=== PATIENT | male | born 1955 | race Caucasian/White ===

== ENCOUNTER 2016-06-01 17:08 | Emergency (ER) | payer MEDICAID ==
[2016-06-01] MEDS ORDERED: cloNIDine 0.1 MG Tab PO ONE (17:33)
[2016-06-01 18:12] LABS: CHLORIDE,CL 105 mmol/L (98-110); SODIUM,NA 146 mmol/L (136-146)
[2016-06-01] MEDS ORDERED: Potassium Chloride 10% 20 MEQ/15 ML Soln 30 ML UD Cup PO ONE (18:27)
[2016-06-01] MEDS ORDERED: Sodium Chloride 0.9% 3,000 ML IV ONE (18:27)
[2016-06-01] MEDS ORDERED: Potassium Chloride 20 MEQ Tab.ER ONE (19:12)
[2016-06-01] MEDS ORDERED: Dextrose 5%-0.45% NaCl 1,000 ML IV SCH (19:15)
[2016-06-01] MEDS ORDERED: Potassium Chloride 20 MEQ Tab.ER PO ONE (19:15)
--- NOTE | 2016-06-01 19:20 | EDM.PDOC ---
ED HPI GENERAL MEDICAL PROBLEM - General Chief Complaint: Drug or Alcohol Abuse Stated Complaint: ALCOHOL DETOX Time Seen by Provider: 06/01/16 18:30 Source of Information: Reports: Patient History Limitations: Reports: No limitations - History of Present Illness INITIAL COMMENTS - FREE TEXT/NARRATIVE: History of present illness: [61-year-old male brought in by son and friends secondary to acute intoxication. Patient has a 40+ year history of hard alcohol consumption to intoxication. Patient indicates as does 7 friend the patient has tried detox in the past but has alcohol withdrawal seizures.] Review of systems: As per history of present illness and below otherwise all systems reviewed and negative. Past medical history: As per history of present illness and as reviewed below otherwise noncontributory. Surgical history: As per history of present illness and as reviewed below otherwise noncontributory. Social history: No reported history of drug or alcohol abuse. Family history: As per history of present illness and as reviewed below otherwise noncontributory. Physical exam: HEENT: Atraumatic, normocephalic, pupils reactive, negative for conjunctival pallor or scleral icterus, mucous membranes moist, throat clear, neck supple, nontender, trachea midline. Lungs: Clear to auscultation, breath sounds equal bilaterally, chest nontender. Heart: S1S2, regular, negative for clicks, rubs, or JVD. Abdomen: Soft, nondistended, nontender. Negative for masses or hepatosplenomegaly. Negative for costovertebral tenderness. Pelvis: Stable nontender. Genitourinary: Deferred. Rectal: Deferred. Extremities: Atraumatic, negative for cords or calf pain. Neurovascular unremarkable. Neuro: Awake, alert, oriented. Cranial nerves II through XII unremarkable. Cerebellum unremarkable. Motor and sensory unremarkable throughout. Exam nonfocal. Global assessment was benign save as noted in the history of present illness patient is clearly intoxicated on presentation he is verbose and friendly. Patient clearly has some short-term memory issues at this juncture which cannot be delineated between intoxication and/or dementia. Diagnostics: [BC, CMP, toxicology screen] Therapeutics: [40 mEq of potassium, 1 L normal saline, D5 half-normal saline] Impression: [Acute intoxicated] Plan: [Transfer to [facility] detox] Definitive disposition and diagnosis as appropriate pending reevaluation and review of above. Generalized Pain Score (Numeric/FACES): 0 - Related Data Allergies Allergy/AdvReac Type Severity Reaction Status Date / Time No Known Allergies Allergy Verified 06/01/16 17:18 Home Meds: Home Meds . [No Known Home Meds] 03/05/14 [History] Past Medical History - Past Health History Medical/Surgical History: Denies Medical/Surgical History HEENT History: Reports: None Cardiovascular History: Reports: None Respiratory History: Reports: Other (see below) Other Respiratory History: pt reports "I have trouble breathing" Gastrointestinal History: Reports: None Genitourinary History: Reports: None Musculoskeletal History: Reports: None Neurological History: Reports: None Endocrine/Metabolic History: Reports: None Hematologic History: Reports: None Immunologic History: Reports: None Dermatologic History: Reports: None - Past Surgical History Head Surgeries/Procedures: Reports: None HEENT Surgical History: Reports: None Cardiovascular Surgical History: Reports: None Male Surgical History: Reports: None Social & Family History - Family History Family Medical History: Noncontributory - Tobacco Use Smoking Status *Q: Current Every Day Smoker Years of Tobacco use: 40 Packs/Tins Daily: 1 Used Tobacco, but Quit: No Second Hand Smoke Exposure: Yes - Caffeine Use Caffeine Use: Reports: Coffee - Alcohol Use Days Per Week of Alcohol Use: 0 - Recreational Drug Use Recreational Drug Use: No ED ROS GENERAL - Review of Systems Review Of Systems: See Below (The history of present illness) ED EXAM, GENERAL - Physical Exam Exam: See Below (See history of present illness) Course - Vital Signs Last Recorded V/S: Last Vital Signs Temp 36.6 C 06/01/16 17:20 Pulse 97 06/01/16 18:01 Resp 18 06/01/16 17:32 BP 190/134 H 06/01/16 18:01 Pulse Ox 95 06/01/16 18:01 - Orders/Labs/Meds Orders: Active Orders 24 hr Category Date Time Status Dextrose 5%-1/2 Normal Saline @ 125 MLS/HR(1000ml) Med 06/01/16 19:15 Ordered Dextrose 5%-0.45% NaCl [Dextrose 5%-1/2 NS] 1,000 ml IV ASDIRECTED Sodium Chloride 0.9% [Normal Saline] 3,000 ml Med 06/01/16 18:27 Ordered IV STAT Medication Orders Sodium Chloride (Normal Saline) 3,000 mls @ 999 mls/hr IV STAT ONE Stop: 06/01/16 21:27 Last Admin: 06/01/16 18:59 Dose: 999 mls/hr Dextrose/Sodium Chloride (Dextrose 5%-1/2 Ns) 1,000 mls @ 125 mls/hr IV ASDIRECTED [facility] Labs: Laboratory Tests 06/01/16 06/01/16 06/01/16 Range/Units 17:43 17:43 18:00 WBC 6.43 (4.0-11.0) K/uL RBC 4.64 (4.50-5.90) M/uL Hgb 15.9 (13.0-17.0) g/dL Hct 44.3 (38.0-50.0) % MCV 95.5 (80.0-98.0) fL MCH 34.3 H (27.0-32.0) pg MCHC 35.9 (31.0-37.0) g/dL RDW Std Deviation 49.0 (28.0-62.0) fl RDW Coeff of Manolo 14 (11.0-15.0) % Plt Count 108 L (150-400) K/uL MPV 10.30 (7.40-12.00) fL Neut % (Auto) 52.5 (48.0-80.0) % Lymph % (Auto) 32.7 (16.0-40.0) % [place] % (Auto) 11.8 (0.0-15.0) % Eos % (Auto) 2.2 (0.0-7.0) % Baso % (Auto) 0.8 (0.0-1.5) % Neut # (Auto) 3.4 (1.4-5.7) K/uL Lymph # (Auto) 2.1 (0.6-2.4) K/uL [place] # (Auto) 0.8 (0.0-0.8) K/uL Eos # (Auto) 0.1 (0.0-0.7) K/uL Baso # (Auto) 0.1 (0.0-0.1) K/uL Nucleated RBC % 0.0 /100WBC Nucleated RBCs # 0 K/uL Sodium 146 (136-146) mmol/L Potassium 3.1 L (3.5-5.1) mmol/L Chloride 105 (98-110) mmol/L Carbon Dioxide 22 (21-31) mmol/L BUN 7 (6.0-23.0) mg/dL Creatinine 0.8 (0.6-1.5) mg/dL Est Cr Clr Drug Dosing 96.28 mL/min Estimated GFR (MDRD) > 60.0 ml/min Glucose 92 (60-110) mg/dL Calcium 8.6 L (8.8-10.8) mg/dL Total Bilirubin 1.1 (0.1-1.5) mg/dL AST 162 H (5-40) IU/L ALT 53 (8-54) IU/L Alkaline Phosphatase 83 (40-150) Total Protein 7.6 (6.0-8.0) g/dL Albumin 4.1 (3.4-4.8) g/dL Globulin 3.5 (2.0-3.5) g/dL Albumin/Globulin Ratio 1.2 L (1.3-2.8) Urine Opiates Screen NEGATIVE (NEGATIVE) Ur Oxycodone Screen NEGATIVE (NEGATIVE) Urine Methadone Screen NEGATIVE (NEGATIVE) Ur Barbiturates Screen NEGATIVE (NEGATIVE) Ur Phencyclidine Scrn NEGATIVE (NEGATIVE) Ur Amphetamine Screen NEGATIVE (NEGATIVE) U Methamphetamines Scrn NEGATIVE (NEGATIVE) U Benzodiazepines Scrn NEGATIVE (NEGATIVE) U Cocaine Metab Screen NEGATIVE (NEGATIVE) U Marijuana (THC) Screen NEGATIVE (NEGATIVE) Ethyl Alcohol 400.5 mg/dL Meds: Medications Generic Name Dose Route Start Last Admin Trade Name Freq PRN Reason Stop Dose Admin Sodium Chloride 3,000 mls @ 999 mls/hr 06/01/16 18:27 06/01/16 18:59 Normal Saline IV 06/01/16 21:27 999 mls/hr STAT ONE Administration Dextrose/Sodium Chloride 1,000 mls @ 125 mls/hr 06/01/16 19:15 Dextrose 5%-1/2 Ns IV ASDIRECTED ONIEL Discontinued Medications Generic Name Dose Route Start Last Admin Trade Name Freq PRN Reason Stop Dose Admin Clonidine HCl 0.2 mg 06/01/16 17:33 06/01/16 17:59 Catapres PO 06/01/16 17:34 0.2 mg ONETIME ONE Administration Potassium Chloride 40 meq 06/01/16 18:27 Potassium Chloride PO 06/01/16 18:28 ONETIME ONE Potassium Chloride Confirm 06/01/16 19:12 Klor-Con M20 Administered 06/01/16 19:13 Dose 40 meq .ROUTE .STK-MED ONE Potassium Chloride 40 meq 06/01/16 19:15 Klor-Con M20 PO 06/01/16 19:16 ONETIME ONE Departure - Departure Time of Disposition: 19:19 Disposition: DC/Tfer to Acute Hospital 02 Condition: good Clinical Impression: Alcohol abuse Forms: ED Department Discharge - My Orders Last 24 Hours: My Active Orders 06/01/16 18:27 Sodium Chloride 0.9% [Normal Saline] 3,000 ml IV STAT 06/01/16 19:15 Dextrose 5%-1/2 Normal Saline @ 125 MLS/HR(1000ml) Dextrose 5%-0.45% NaCl [ Dextrose 5%-1/2 NS] 1,000 ml IV ASDIRECTED - Assessment/Plan Last 24 Hours: My Active Orders 06/01/16 18:27 Sodium Chloride 0.9% [Normal Saline] 3,000 ml IV STAT 06/01/16 19:15 Dextrose 5%-1/2 Normal Saline @ 125 MLS/HR(1000ml) Dextrose 5%-0.45% NaCl [ Dextrose 5%-1/2 NS] 1,000 ml IV ASDIRECTED
[2016-06-01] MEDS ORDERED: Nicotine 21 MG/24 Hr Patch TRDERM ONE (19:30)
[2016-06-01] MEDS ORDERED: Nicotine 14 MG/24 Hr Patch TRDERM ONE (19:30)
[2016-06-01 20:26] VITALS: BP 148/103
== END 2016-06-01 20:20 ==
LOC: MW.ED 17:08
DX: F10.10 Alcohol abuse, uncomplicated (principal); F17.210 Nicotine dependence, cigarettes, uncomplicated
CPT/HCPCS: 36415; 80053; 80305; 85025; 93005; 96360; 99285; A9270; G0480; J7040; J7042; 99283

== ENCOUNTER 2019-02-15 09:10 | Inpatient (IN) | payer MEDICARE, MEDICAID ==
[2019-02-15] MEDS ORDERED: Sodium Chloride 0.9% 1,000 ML IV ONE (09:59)
[2019-02-15] MEDS ORDERED: Ondansetron 4 MG/2 ML SDV IVPUSH ONE (09:59)
[2019-02-15] MEDS ORDERED: Thiamine 100 MG in Sodium Chloride 0.9% 100 ML IV ONE ×2 (09:59→17:30)
[2019-02-15] MEDS ORDERED: LORazepam 2 MG/ML SDV IVPUSH ONE ×2 (09:59→16:47)
[2019-02-15 11:07] LABS: BLOOD UREA NITROGEN,BUN 8 mg/dL (7.0-18.0); CARBON DIOXIDE,CO2 23.9 mmol/L (21.0-32.0); CHLORIDE,CL 97 mmol/L (98-107); GLUCOSE RANDOM 104 mg/dL (74-106); POTASSIUM,K 2.8 mmol/L (3.5-5.1); SODIUM,NA 135 mmol/L (136-148)
--- NOTE | 2019-02-15 11:11 | EDM.PDOC ---
ED [facility] GENERAL MEDICAL PROBLEM - General Chief Complaint: Gastrointestinal Problem Stated Complaint: NOT ABLE TO KEEP ANYTHING DOWN Time Seen by Provider: 02/15/19 09:45 Source of Information: Reports: Patient, Family History Limitations: Reports: No Limitations - History of Present Illness INITIAL COMMENTS - FREE TEXT/NARRATIVE: Patient 63-year-old male with a history of daily alcohol abuse presenting with chief complaint of abdominal pain, nausea, and lethargy. Duration of symptoms been approximately 1 month in duration but of worsened over the last 2 days. Patient is unable to eat anything and is only been drinking alcohol. Patient reports having fevers over the last 2 days and worsening of his abdominal pain particularly in the lower abdomen. Pain does not radiate. The pain is constant. Pain is crampy in nature. Patient denies diarrhea. Patient reports last alcohol use was this morning when he took 3 shots of hard alcohol. Generally he has been drinking half a gallon of alcohol per day. In addition to that documented in the HPI above, the additional ROS was obtained : Constitutional: Per HPI Eyes: Denies vision changes ENMT: Denies sore throat CV: Denies chest pain Resp: Denies SOB GI: Per HPI : Denies painful urination MSK: Denies recent trauma Skin: Denies new rashes Neuro: Denies new numbness or tingling or weakness Endocrine: Denies unexpected weight loss Heme: Denies bleeding disorders I have reviewed the triage vital signs Const: Appears disheveled and malnourished. Eyes: PERRL, no conjunctival injection HENT: NCAT, Neck supple without meningismus CV: RRR, Warm, well-perfused extremities RESP: CTAB, Unlabored respiratory effort GI: Distended abdomen with tenderness to the lower abdomen. No guarding. MSK: No gross deformities appreciated Skin: Warm, dry. No rashes Neuro: Alert, firearms instructor II-XII grossly intact. Sensation and motor function of extremities grossly intact. Psych: Appropriate mood and affect Assessment and plan Patient is 63-year-old male presenting with lower abdominal pain. Patient's labs are noted. Patient significant for hypokalemia which was repleted in the emergency department. Patient's chest x-ray was within normal limits. Patient CT scan demonstrates abdominal ascites. Patient had a diagnostic tap performed in the emergency department which was significant for spontaneous bacterial peritonitis. Patient given antibiotics in the emergency department. Patient was initially tremulous in the emergency department was given 2 mg of Ativan. At this time, patient does not demonstrate any major symptoms of withdrawal and CIWA score is less than 8. Patient will require admission for SBP and IV antibiotics. In addition, he needs close monitoring for development of alcohol withdrawal. Abdomonal Pain Score (Numeric/FACES): 8 - Related Data Allergies Allergy/AdvReac Type Severity Reaction Status Date / Time No Known Allergies Allergy Verified 06/01/16 17:18 Home Meds: Home Meds Albuterol [Ventolin HFA] 1 puff INH Q2H PRN #1 puff 01/27/18 [Rx] Mirtazapine 45 mg PO ASDIRECTED 02/15/19 [History] amLODIPine [Norvasc] 10 mg PO DAILY 02/15/19 [History] Past Medical History - Past Health History Medical/Surgical History: Denies Medical/Surgical History HEENT History: Reports: None Cardiovascular History: Reports: Hypertension Respiratory History: Reports: Other (See Below) Other Respiratory History: 50 years smoker Gastrointestinal History: Reports: None Genitourinary History: Reports: None Musculoskeletal History: Reports: None Neurological History: Reports: None Endocrine/Metabolic History: Reports: None Hematologic History: Reports: None Immunologic History: Reports: None Dermatologic History: Reports: None - Infectious Disease History Infectious Disease History: Reports: Chicken Pox, Measles, Mumps - Past Surgical History Head Surgeries/Procedures: Reports: None HEENT Surgical History: Reports: None Cardiovascular Surgical History: Reports: None Male Surgical History: Reports: None Social & Family History - Family History Family Medical History: Noncontributory - Tobacco Use Smoking Status *Q: Current Every Day Smoker Years of Tobacco use: 50 Packs/Tins Daily: 1 - Caffeine Use Caffeine Use: Reports: Coffee - Recreational Drug Use Recreational Drug Use: No ED ROS GENERAL - Review of Systems Review Of Systems: See Below ED EXAM, GI/ABD - Physical Exam Exam: See Below ED ABDOMINAL/GI PROCEDURES - Additional/Other Procedure(s) Procedure(s) (Free Text): Procedure Note Procedure: Paracentesis Physician(s): Dr. Vinson Indication: diagnostic Anesthesia: 1% Lidocaine Ultrasound guidance was used to locate and louise an ascitic pocket A time-out was completed, verifying correct patient, procedure, site, positioning, and implant(s) or special equipment if applicable. Patient was positioned, prepped, and draped in the usual sterile fashion. 1% Lidocaine was used to anesthetize the area. A standard paracentesis kit needle was introduced into the peritoneal space and 10 ml clear yellow fluid was removed and sent for cell counts, gram stain, bacterial culture, and albumin levels. Complications: None Blood loss: Minimal Dr. Vinson was present during the entire procedure. Course - Vital Signs Last Recorded V/S: Last Vital Signs Temp 36.1 C 02/15/19 09:39 Pulse 99 02/15/19 15:15 Resp 20 02/15/19 15:15 BP 121/82 02/15/19 15:15 Pulse Ox 90 L 02/15/19 15:15 - Orders/Labs/Meds Orders: Active Orders 24 hr Category Date Time Status Admission Status [Patient Status] [ADT] Stat ADT 02/15/19 15:36 Active EKG 12 Lead [EKG Documentation Completion] [RC] STAT Care 02/15/19 11:08 Active CULTURE BODY FLUID + SMEAR [RM] Stat Lab 02/15/19 14:28 Received Dextrose 5%-0.9% NaCl with KCl [D5 NS with 20 mEq KCl] Med 02/15/19 12:30 Active 1,000 ml IV ASDIRECTED cefTRIAXone [Rocephin in Dextrose,Iso-Osm 1 GM/50 ML] 1 Med 02/15/19 15:25 Active gm Premix Bag 1 bag IV ONETIME Medication Orders Potassium Chloride/Dextrose/Sod Cl (D5 Ns With 20 Meq Kcl) 1,000 mls @ 125 mls/ hr IV ASDIRECTED ONIEL Last Admin: 02/15/19 12:36 Dose: 125 mls/hr Ceftriaxone Sodium/Dextrose 1 (gm/ Premix) 50 mls @ 100 mls/hr IV ONETIME ONE Stop: 02/15/19 15:54 Last Admin: 02/15/19 15:32 Dose: 100 mls/hr Labs: Laboratory Tests 02/15/19 02/15/19 02/15/19 Range/Units 10:09 10:09 10:09 WBC 11.73 H (4.0-11.0) K/uL RBC 5.11 (4.50-5.90) M/uL Hgb 17.7 H (13.0-17.0) g/dL Hct 49.1 (38.0-50.0) % MCV 96.1 (80.0-98.0) fL MCH 34.6 H (27.0-32.0) pg MCHC 36.0 (31.0-37.0) g/dL RDW Std Deviation 56.0 (28.0-62.0) fl RDW Coeff of Manolo 16 H (11.0-15.0) % Plt Count 188 (150-400) K/uL MPV 10.50 (7.40-12.00) fL Neutrophils % (Manual) 73 (48.0-80.0) % Lymphocytes % (Manual) 19 (16.0-40.0) % Monocytes % (Manual) 6 (0.0-15.0) % Eosinophils % (Manual) 2 (0.0-7.0) % Nucleated RBC % 0.0 /100WBC Absolute Seg Neuts 8.6 H (1.4-5.7) Lymphocytes # (Manual) 2.2 (0.6-2.4) Monocytes # (Manual) 0.7 (0.0-0.8) Eosinophils # (Manual) 0.2 (0.0-0.7) INR 1.29 VBG pH 7.51 H (7.31-7.41) VBG pCO2 31 L (35-45) mmHG VBG pO2 51 H (30-40) mmHG VBG HCO3 24 (22-30) mEq/L VBG Total CO2 20 L (41-51) mmol/L VBG Base Excess 2.2 (-3.0-3.0) Sodium (136-148) mmol/L Potassium (3.5-5.1) mmol/L Chloride (98-107) mmol/L Carbon Dioxide (21.0-32.0) mmol/L BUN (7.0-18.0) mg/dL Creatinine (0.8-1.3) mg/dL Est Cr Clr Drug Dosing mL/min Estimated GFR (MDRD) ml/min Glucose (74-106) mg/dL Calcium (8.5-10.1) mg/dL Total Bilirubin (0.2-1.0) mg/dL AST (15-37) IU/L ALT (14-63) IU/L Alkaline Phosphatase (46-116) U/L Total Protein (6.4-8.2) g/dL Albumin (3.4-5.0) g/dL Globulin (2.6-4.0) g/dL Albumin/Globulin Ratio (0.9-1.6) Fluid Type Fluid Color Fluid Appearance Fluid pH Fluid WBC K/uL Fluid RBC M/uL Fluid Mononuclear Cell % Fl Polymorphonucl Cell % Ethyl Alcohol mg/dL 02/15/19 02/15/19 02/15/19 Range/Units 10:09 14:28 14:28 WBC (4.0-11.0) K/uL RBC (4.50-5.90) M/uL Hgb (13.0-17.0) g/dL Hct (38.0-50.0) % MCV (80.0-98.0) fL MCH (27.0-32.0) pg MCHC (31.0-37.0) g/dL RDW Std Deviation (28.0-62.0) fl RDW Coeff of Manolo (11.0-15.0) % Plt Count (150-400) K/uL MPV (7.40-12.00) fL Neutrophils % (Manual) (48.0-80.0) % Lymphocytes % (Manual) (16.0-40.0) % Monocytes % (Manual) (0.0-15.0) % Eosinophils % (Manual) (0.0-7.0) % Nucleated RBC % /100WBC Absolute Seg Neuts (1.4-5.7) Lymphocytes # (Manual) (0.6-2.4) Monocytes # (Manual) (0.0-0.8) Eosinophils # (Manual) (0.0-0.7) INR VBG pH (7.31-7.41) VBG pCO2 (35-45) mmHG VBG pO2 (30-40) mmHG VBG HCO3 (22-30) mEq/L VBG Total CO2 (41-51) mmol/L VBG Base Excess (-3.0-3.0) Sodium 135 L (136-148) mmol/L Potassium 2.8 L (3.5-5.1) mmol/L Chloride 97 L (98-107) mmol/L Carbon Dioxide 23.9 (21.0-32.0) mmol/L BUN 8 (7.0-18.0) mg/dL Creatinine 1.0 (0.8-1.3) mg/dL Est Cr Clr Drug Dosing 77.06 mL/min Estimated GFR (MDRD) > 60.0 ml/min Glucose 104 (74-106) mg/dL Calcium 8.7 (8.5-10.1) mg/dL Total Bilirubin 2.1 H (0.2-1.0) mg/dL AST 61 H (15-37) IU/L ALT 32 (14-63) IU/L Alkaline Phosphatase 144 H (46-116) U/L Total Protein 9.3 H (6.4-8.2) g/dL Albumin 2.8 L (3.4-5.0) g/dL Globulin 6.5 H (2.6-4.0) g/dL Albumin/Globulin Ratio 0.4 L (0.9-1.6) Fluid Type PER PER Fluid Color YELLOW Fluid Appearance CLEAR Fluid pH 7.0 Fluid WBC 0.25 K/uL Fluid RBC 0.00 M/uL Fluid Mononuclear Cell 85.7 % Fl Polymorphonucl Cell 14.3 % Ethyl Alcohol 4 mg/dL Meds: Medications Generic Name Dose Route Start Last Admin Trade Name Freq PRN Reason Stop Dose Admin Potassium Chloride/Dextrose/Sod Cl 1,000 mls @ 125 mls/hr 02/15/19 12:30 07/30 12:36 D5 Ns With 20 Meq Kcl IV 125 mls/hr ASDIRECTED ONIEL Administration Ceftriaxone Sodium/Dextrose 1 50 mls @ 100 mls/hr 02/15/19 15:25 02/15/19 15: 32 gm/ Premix IV 02/15/19 15:54 100 mls/hr ONETIME ONE Administration Discontinued Medications Generic Name Dose Route Start Last Admin Trade Name Freq PRN Reason Stop Dose Admin Sodium Chloride 1,000 mls @ 999 mls/hr 02/15/19 09:59 02/15/19 10:15 Normal Saline IV 02/15/19 10:59 999 mls/hr .BOLUS ONE Administration Thiamine HCl 100 mg/ Sodium 101 mls @ 202 mls/hr 02/15/19 09:59 02/15/19 10: 25 Chloride IV 02/15/19 10:00 202 mls/hr ONETIME ONE Administration Iopamidol 100 ml 02/15/19 11:38 02/15/19 12:11 Isovue Multipack-370 (76%) IVPUSH 02/15/19 11:39 100 ml ONETIME STA Administration Lidocaine HCl 5 ml 02/15/19 13:29 02/15/19 13:38 Xylocaine-Mpf 1% INJECT 02/15/19 13:30 5 ml ONETIME ONE Administration Lorazepam 2 mg 02/15/19 09:59 02/15/19 10:15 Ativan IVPUSH 02/15/19 10:00 2 mg ONETIME ONE Administration Nicotine 21 mg 02/15/19 15:08 02/15/19 15:12 Habitrol TRDERM 02/15/19 15:09 21 mg ONETIME ONE Administration Ondansetron HCl 4 mg 02/15/19 09:59 02/15/19 10:15 Zofran IVPUSH 02/15/19 10:00 4 mg ONETIME ONE Administration Potassium Chloride 40 meq 02/15/19 11:42 02/15/19 12:35 Potassium Chloride PO 02/15/19 11:43 40 meq ONETIME ONE Administration Departure - Departure Time of Disposition: 15:51 Disposition: Admitted As Inpatient 65 Clinical Impression: Spontaneous bacterial peritonitis - Discharge Information Referrals: Wesley Arroyo MD [Primary Care Provider] - Forms: ED Department Discharge Sepsis Event Note - Evaluation Sepsis Screening Result: No Definite Risk - Focused Exam Vital Signs: Vital Signs Temp Pulse Resp BP Pulse Ox 02/15/19 15:15 99 20 121/82 90 L 02/15/19 14:15 91 20 102/70 90 L 02/15/19 09:39 36.1 C 101 H 30 H 136/81 93 L Date Exam was Performed: 02/15/19 Time Exam was Performed: 15:51 - My Orders Last 24 Hours: My Active Orders 02/15/19 11:08 EKG 12 Lead [EKG Documentation Completion] [RC] STAT 02/15/19 12:30 Dextrose 5%-0.9% NaCl with KCl [D5 NS with 20 mEq KCl] 1,000 ml IV ASDIRECTED 02/15/19 14:28 CULTURE BODY FLUID + SMEAR [RM] Stat 02/15/19 15:25 cefTRIAXone [Rocephin in Dextrose,Iso-Osm 1 GM/50 ML] 1 gm Premix Bag 1 bag IV ONETIME 02/15/19 15:36 Admission Status [Patient Status] [ADT] Stat - Assessment/Plan Last 24 Hours: My Active Orders 02/15/19 11:08 EKG 12 Lead [EKG Documentation Completion] [RC] STAT 02/15/19 12:30 Dextrose 5%-0.9% NaCl with KCl [D5 NS with 20 mEq KCl] 1,000 ml IV ASDIRECTED 02/15/19 14:28 CULTURE BODY FLUID + SMEAR [RM] Stat 02/15/19 15:25 cefTRIAXone [Rocephin in Dextrose,Iso-Osm 1 GM/50 ML] 1 gm Premix Bag 1 bag IV ONETIME 02/15/19 15:36 Admission Status [Patient Status] [ADT] Stat
[2019-02-15] MEDS ORDERED: Iopamidol 755 MG/ML 500 ML Multipack Bottle IVPUSH STA (11:38)
[2019-02-15] MEDS ORDERED: Potassium Chloride 10% 20 MEQ/15 ML Soln 30 ML UD Cup PO ONE (11:42)
[2019-02-15] MEDS ORDERED: Potassium Chloride 20 MEQ Tab.ER PO ONE (11:42)
--- NOTE | 2019-02-15 12:24 | CT ---
CT abdomen and pelvis Technique: Multiple axial sections were obtained from above the dome of the diaphragm inferiorly through the pubic symphysis. Intravenous contrast was utilized. No oral contrast has been given. Comparison: Previous CT abdomen and pelvis exam of 01/27/18. Findings: Slight atelectasis noted within the right lung base. Liver is diffusely abnormal having the appearance of early cirrhotic change. Small to moderate amount of ascites is seen within the abdomen and pelvis. Spleen appears normal in size at 11.0 cm in length. Gallbladder contains no calcified gallstones. Adrenal glands show no nodule. Kidneys show no hydronephrosis or mass. Left mid kidney shows a nonobstructing stone measuring about 6 mm. Aorta shows atherosclerotic calcification without aneurysm. No retroperitoneal adenopathy is seen. No mesenteric abnormalities are seen. Numerous diverticuli are seen within the sigmoid and descending colon. No inflammatory change of diverticulitis is seen. Diverticuli are also noted within portions of the right colon. Appendix is not definitely visualized. Bone window settings were reviewed which showed no acute osseous finding. Calcified granuloma is noted within the inferior right hilar region as well as several small calcifications within the spleen compatible with granuloma. Impression: 1. Abnormal appearing liver which showed severe fatty infiltration on prior exam. Current study likely represents early cirrhotic change. 2. Mild to moderate amount of ascites within the abdomen and pelvis. 3. Other findings believed to be incidental and not acute as described above. Diagnostic code #5 This report was dictated in [place] Standard Time
[2019-02-15] MEDS: Dextrose 5%-0.9% NaCl with KCl 1,000 ML IV SCH (12:36)
[2019-02-15] MEDS ORDERED: Nicotine 21 MG/24 Hr Patch TRDERM ONE (15:08)
--- NOTE | 2019-02-15 15:23 | CR ---
Chest: Portable view of the chest was obtained. Comparison: Prior chest x-ray of 01/27/18. [place] density is noted within the inferior right hilar region which is felt compatible with large calcified lymph node. Heart size and mediastinum are otherwise normal. No acute parenchymal changes appreciated. Bony structures are grossly intact. Impression: 1. Findings which is felt to be incidental as noted above. 2. Nothing acute is seen on portable chest x-ray. Diagnostic code #2 This report was dictated in [place] Standard Time
[2019-02-15] MEDS ORDERED: cefTRIAXone 1 GM in Premix Bag 1 BAG IV ONE ×2 (15:25→17:00)
[2019-02-15] MEDS ORDERED: Sodium Chloride 0.9% 500 ML IV ONE (16:48)
[2019-02-15] MEDS ORDERED: cefTRIAXone 1 GM Vial IVPUSH ONE (16:50)
--- NOTE | 2019-02-15 16:57 | PCM.HP.2 ---
<Francia Quinones - Last Filed: 02/18/19 13:20> H&P History of Present Illness - General Date of Service: 02/16/19 Admit Problem/Dx: Admission Diagnosis/Problem Admission Diagnosis/Problem Spontaneous bacterial peritonitis Source of Information: Patient History Limitations: Reports: No Limitations - History of Present Illness Initial Comments - Free Text/Narative: 63-year-old male with a significant past medical history of hypertension presenting today after drinking half a bottle of alcohol daily for the past 2 to 3 months, abdominal pain with swelling. States abdominal pain and swelling has gotten progressively worse over the past 2 weeks however he knows that if he "waited any longer he would ". Patient otherwise denies any fevers, chills, body aches, chest pain, shortness of breath, lower extremity swelling. Denies any dysuria urinary urgency or frequency. Denies any rashes. States he smokes daily; ETOH abuse; denies use of illicit drugs Abdomonal Pain Score (Numeric/FACES): 8 - Related Data Allergies/Adverse Reactions: Allergies Allergy/AdvReac Type Severity Reaction Status Date / Time No Known Allergies Allergy Verified 02/15/19 16:29 Home Medications: Home Meds Albuterol [Ventolin HFA] 1 puff INH Q2H PRN #1 puff 01/27/18 [Rx] Mirtazapine 45 mg PO BEDTIME 02/15/19 [History] amLODIPine [Norvasc] 10 mg PO DAILY 02/15/19 [History] Albuterol/Ipratropium [DuoNeb 3.0-0.5 MG/3 ML] 3 ml NEB Q4HRRT neb 02/18/19 [Rx ] Fluticasone/Salmeterol [Advair 100-50] 0 puff INH BID diskus 02/18/19 [Rx] Folic Acid 1 mg PO DAILY tablet 02/18/19 [Rx] Lactulose [Chronulac] 10 gm PO DAILY cup 02/18/19 [Rx] Multivitamins [Tab-A-Darien] 1 tab PO DAILY tablet 02/18/19 [Rx] Ondansetron [Zofran ODT] 4 mg PO Q6H PRN tab.dis 02/18/19 [Rx] Simethicone 80 mg PO Q4H PRN tab.chew 02/18/19 [Rx] Spironolactone [Aldactone] 50 mg PO DAILY tablet 02/18/19 [Rx] Thiamine [Vitamin B-1] 100 mg IV Q24H mdv 02/18/19 [Rx] cefTRIAXone [Rocephin in Dextrose,Iso-Osm 2 GM/50 ML] 2 gm IV Q24H bag [Rx] predniSONE 40 mg PO WITHBREAKFAST tablet 02/18/19 [Rx] Past Medical History - Past Health History Medical/Surgical History: Denies Medical/Surgical History HEENT History: Reports: None Cardiovascular History: Reports: Hypertension Respiratory History: Reports: Other (See Below) Other Respiratory History: 50 years smoker Gastrointestinal History: Reports: None Genitourinary History: Reports: None Musculoskeletal History: Reports: None Neurological History: Reports: None Endocrine/Metabolic History: Reports: None Hematologic History: Reports: None Immunologic History: Reports: None Dermatologic History: Reports: None - Infectious Disease History Infectious Disease History: Reports: Chicken Pox, Measles, Mumps - Past Surgical History Head Surgeries/Procedures: Reports: None HEENT Surgical History: Reports: None Cardiovascular Surgical History: Reports: None Male Surgical History: Reports: None Social & Family History - Family History Family Medical History: Noncontributory - Tobacco Use Smoking Status *Q: Current Every Day Smoker Years of Tobacco use: 50 Packs/Tins Daily: 1 - Caffeine Use Caffeine Use: Reports: Coffee - Recreational Drug Use Recreational Drug Use: No H&P Review of Systems - Review of Systems: Review Of Systems: See Below General: Denies: Fever, Chills, Malaise, Fatigue HEENT: Reports: No Symptoms Pulmonary: Reports: No Symptoms, Cough. Denies: Shortness of Breath, Wheezing, Pleuritic Chest Pain, Sputum Cardiovascular: Reports: No Symptoms. Denies: Chest Pain, Palpitations, Dyspnea on Exertion Gastrointestinal: Reports: Abdominal Pain, Constipation, Decreased Appetite, Distension. Denies: Diarrhea, Nausea Genitourinary: Reports: No Symptoms Musculoskeletal: Reports: No Symptoms Skin: Reports: No Symptoms Psychiatric: Denies: No Symptoms, Confusion, Depression Neurological: Denies: Confusion Exam - Exam Exam: See Below - Vital Signs Vital Signs: Last Vital Signs Temp 97 F 02/15/19 09:39 Pulse 94 02/15/19 16:15 Resp 18 02/15/19 16:15 BP 113/77 02/15/19 16:15 Pulse Ox 93 L 02/15/19 16:15 Weight: 85 kg - Exam Quality Assessment: Supplemental Oxygen General: Alert, Oriented, Cooperative HEENT: EOMI, Mucosa Moist & [place] Neck: Supple, Trachea Midline Lungs: Other (LL lung field expiuratory wheeze ) Cardiovascular: Regular Rate, Regular Rhythm GI/Abdominal Exam: Other (Tender and distended; no fluid wave ; no suprapubic or flank tenderness) Back Exam: Full Range of Motion Skin: Warm, Dry Neurological: Cranial Nerves Intact Neuro Extensive - Mental Status: Alert, Oriented x3 Psychiatric: Alert, Normal Affect, Normal Mood - Patient Data Lab Results Last 24 hrs: Laboratory Results - last 24 hr 02/15/19 02/15/19 02/15/19 Range/Units 10:09 10:09 10:09 WBC 11.73 H (4.0-11.0) K/uL RBC 5.11 (4.50-5.90) M/uL Hgb 17.7 H (13.0-17.0) g/dL Hct 49.1 (38.0-50.0) % MCV 96.1 (80.0-98.0) fL MCH 34.6 H (27.0-32.0) pg MCHC 36.0 (31.0-37.0) g/dL RDW Std Deviation 56.0 (28.0-62.0) fl RDW Coeff of Manolo 16 H (11.0-15.0) % Plt Count 188 (150-400) K/uL MPV 10.50 (7.40-12.00) fL Neutrophils % (Manual) 73 (48.0-80.0) % Lymphocytes % (Manual) 19 (16.0-40.0) % Monocytes % (Manual) 6 (0.0-15.0) % Eosinophils % (Manual) 2 (0.0-7.0) % Nucleated RBC % 0.0 /100WBC Absolute Seg Neuts 8.6 H (1.4-5.7) Lymphocytes # (Manual) 2.2 (0.6-2.4) Monocytes # (Manual) 0.7 (0.0-0.8) Eosinophils # (Manual) 0.2 (0.0-0.7) INR 1.29 VBG pH 7.51 H (7.31-7.41) VBG pCO2 31 L (35-45) mmHG VBG pO2 51 H (30-40) mmHG VBG HCO3 24 (22-30) mEq/L VBG Total CO2 20 L (41-51) mmol/L VBG Base Excess 2.2 (-3.0-3.0) Sodium (136-148) mmol/L Potassium (3.5-5.1) mmol/L Chloride (98-107) mmol/L Carbon Dioxide (21.0-32.0) mmol/L BUN (7.0-18.0) mg/dL Creatinine (0.8-1.3) mg/dL Est Cr Clr Drug Dosing mL/min Estimated GFR (MDRD) ml/min Glucose (74-106) mg/dL Calcium (8.5-10.1) mg/dL Total Bilirubin (0.2-1.0) mg/dL AST (15-37) IU/L ALT (14-63) IU/L Alkaline Phosphatase (46-116) U/L Total Protein (6.4-8.2) g/dL Albumin (3.4-5.0) g/dL Globulin (2.6-4.0) g/dL Albumin/Globulin Ratio (0.9-1.6) Fluid Type Fluid Color Fluid Appearance Fluid pH Fluid WBC K/uL Fluid RBC M/uL Fluid Mononuclear Cell % Fl Polymorphonucl Cell % Ethyl Alcohol mg/dL 02/15/19 02/15/19 02/15/19 Range/Units 10:09 14:28 14:28 WBC (4.0-11.0) K/uL RBC (4.50-5.90) M/uL Hgb (13.0-17.0) g/dL Hct (38.0-50.0) % MCV (80.0-98.0) fL MCH (27.0-32.0) pg MCHC (31.0-37.0) g/dL RDW Std Deviation (28.0-62.0) fl RDW Coeff of Manolo (11.0-15.0) % Plt Count (150-400) K/uL MPV (7.40-12.00) fL Neutrophils % (Manual) (48.0-80.0) % Lymphocytes % (Manual) (16.0-40.0) % Monocytes % (Manual) (0.0-15.0) % Eosinophils % (Manual) (0.0-7.0) % Nucleated RBC % /100WBC Absolute Seg Neuts (1.4-5.7) Lymphocytes # (Manual) (0.6-2.4) Monocytes # (Manual) (0.0-0.8) Eosinophils # (Manual) (0.0-0.7) INR VBG pH (7.31-7.41) VBG pCO2 (35-45) mmHG VBG pO2 (30-40) mmHG VBG HCO3 (22-30) mEq/L VBG Total CO2 (41-51) mmol/L VBG Base Excess (-3.0-3.0) Sodium 135 L (136-148) mmol/L Potassium 2.8 L (3.5-5.1) mmol/L Chloride 97 L (98-107) mmol/L Carbon Dioxide 23.9 (21.0-32.0) mmol/L BUN 8 (7.0-18.0) mg/dL Creatinine 1.0 (0.8-1.3) mg/dL Est Cr Clr Drug Dosing 77.06 mL/min Estimated GFR (MDRD) > 60.0 ml/min Glucose 104 (74-106) mg/dL Calcium 8.7 (8.5-10.1) mg/dL Total Bilirubin 2.1 H (0.2-1.0) mg/dL AST 61 H (15-37) IU/L ALT 32 (14-63) IU/L Alkaline Phosphatase 144 H (46-116) U/L Total Protein 9.3 H (6.4-8.2) g/dL Albumin 2.8 L (3.4-5.0) g/dL Globulin 6.5 H (2.6-4.0) g/dL Albumin/Globulin Ratio 0.4 L (0.9-1.6) Fluid Type PER PER Fluid Color YELLOW Fluid Appearance CLEAR Fluid pH 7.0 Fluid WBC 0.25 K/uL Fluid RBC 0.00 M/uL Fluid Mononuclear Cell 85.7 % Fl Polymorphonucl Cell 14.3 % Ethyl Alcohol 4 mg/dL Result Diagrams: 02/18/19 04:53 02/18/19 04:53 Sepsis Event Note - Evaluation Sepsis Screening Result: No Definite Risk - Focused Exam Vital Signs: Vital Signs Temp Pulse Resp BP Pulse Ox 02/15/19 16:15 94 18 113/77 93 L 02/15/19 15:15 99 20 121/82 90 L 02/15/19 14:15 91 20 102/70 90 L 02/15/19 09:39 97 F 101 H 30 H 136/81 93 L Date Exam was Performed: 02/18/19 Time Exam was Performed: 13:20 Problem List Initiated/Reviewed/Updated: Yes Orders Last 24hrs: Active Orders 24 hr Category Date Time Status Admission Status [Patient Status] [ADT] Stat ADT 02/15/19 15:36 Active CIWAA Assessment [RC] Q1H Care 02/15/19 16:46 Ordered EKG 12 Lead [EKG Documentation Completion] [RC] STAT Care 02/15/19 11:08 Active RT Aerosol Therapy [RC] ASDIRECTED Care 02/15/19 16:47 Ordered Echo Comp wo Cont [US] Urgent Exams 02/15/19 16:44 Ordered AMMONIA VENOUS [CHEM] Stat Lab 02/15/19 16:46 Ordered CBC WITH AUTO DIFF [HEME] AM Lab 02/16/19 05:11 Ordered COMPREHENSIVE METABOLIC PN,CMP [CHEM] AM Lab 02/16/19 05:11 Ordered CULTURE BLOOD [BC] Stat Lab 02/15/19 16:45 Ordered CULTURE BLOOD [BC] Stat Lab 02/15/19 16:45 Ordered CULTURE BODY FLUID + SMEAR [RM] Stat Lab 02/15/19 14:28 Received UA W/YASSINE RFLX IF INDICATED [URIN] Routine Lab 02/15/19 16:45 Ordered Albuterol/Ipratropium [DuoNeb 3.0-0.5 MG/3 ML] Med 02/15/19 16:47 Active 3 ml NEB Q4HRRT PRN Dextrose 5%-0.9% NaCl with KCl [D5 NS with 20 mEq KCl] Med 02/15/19 12:30 Active 1,000 ml IV ASDIRECTED Heparin Sodium Med 02/15/19 17:00 Active 5,000 units SUBCUT Q8H Lactulose [Chronulac] Med 02/15/19 17:00 Ordered 10 gm PO DAILY Pantoprazole [ProTONIX IV] 40 mg Med 02/15/19 16:45 Active Sodium Chloride 0.9% [Normal Saline] 10 ml IV DAILY Sodium Chloride 0.9% [Normal Saline] 500 ml Med 02/15/19 16:48 Active IV STAT cefTRIAXone [Rocephin in Dextrose,Iso-Osm 1 GM/50 ML] 1 Med 02/15/19 17:00 Active gm Premix Bag 1 bag IV ONETIME cefTRIAXone [Rocephin] Med 02/15/19 16:50 Once 1 gm IVPUSH ONETIME ONE Blood Culture x2 Reflex Set [OM.PC] Stat Oth 02/15/19 16:45 Ordered Code Status [Resuscitation Status] Routine Resus Stat 02/15/19 16:51 Ordered Medication Orders Albuterol/Ipratropium (Duoneb 3.0-0.5 Mg/3 Ml) 3 ml NEB Q4HRRT PRN PRN Reason: Shortness of Breath Ceftriaxone Sodium (Rocephin) 1 gm IVPUSH ONETIME ONE Stop: 02/15/19 16:51 Heparin Sodium (Porcine) (Heparin Sodium) 5,000 units SUBCUT Q8H ONIEL Potassium Chloride/Dextrose/Sod Cl (D5 Ns With 20 Meq Kcl) 1,000 mls @ 125 mls/ hr IV ASDIRECTED [facility] Last Admin: 02/15/19 12:36 Dose: 125 mls/hr Pantoprazole Sodium 40 mg/ (Sodium Chloride) 10 mls @ 300 mls/hr IV DAILY ONIEL Sodium Chloride (Normal Saline) 500 mls @ 500 mls/hr IV STAT ONE Stop: 02/15/19 17:47 Ceftriaxone Sodium/Dextrose 1 (gm/ Premix) 50 mls @ 100 mls/hr IV ONETIME ONE Stop: 02/15/19 17:29 Lactulose (Chronulac) 10 gm PO DAILY [facility] Assessment/Plan Comment:: Assessment 1. Abdominal ascites with concern for SBP with suspected cirrhosis 2. Alcohol cirrhosis 3. Transaminitis 4. Hypokalemia 5. Leukocytosis. 6. Past medical history: Hypertension, chronic alcohol abuse, tobacco abuse, Plan Admit to inpatient. Full code. DVT prophylaxis; heparin every 8 subcu. GI prophylaxis; IV PPI 40 daily. Up ad joe. diet: Regular. 1. Ascites with concerns about SBP; cell count consistent with SBP awaiting body cultures: Initiate patient on ceftriaxone 2 g daily x5 days. CT abdomen consistent with moderate ascites. Chest x-ray: Negative for pleural effusions versus infiltrates. Volume down: We will give another 500 cc bolus right now. Awaiting cultures. Concerns for alcoholic cardiomyopathy: Echo ordered. Concerns for infectious process: UA with reflex ordered. Lactulose 10 mg daily ordered Child Lee MELD score 2. Hypokalemia: received 40 in IV 3. Check ammonia 4. ETOH abuse: CIWAA/Ativan protocol 5. Duo-nebs ordered PRN: concern for COPD 6. pt. understood plan. <Anup Mcgowan - Last Filed: 02/22/19 20:35> H&P History of Present Illness - General Admit Problem/Dx: Admission Diagnosis/Problem Admission Diagnosis/Problem Spontaneous bacterial peritonitis Exam - Vital Signs Vital Signs: Last Vital Signs Temp 37.2 C 02/18/19 11:52 Pulse 90 02/18/19 11:52 Resp 18 02/18/19 11:52 BP 110/78 02/18/19 11:52 Pulse Ox 93 L 02/18/19 11:52 - Patient Data Result Diagrams: 02/18/19 04:53 02/18/19 04:53 Assessment/Plan Comment:: I performed a history and physical exam of the patient and discussed management with resident. I have reviewed the residents note and agree with documented findings and plan unless otherwise specified in my note.
[2019-02-15] MEDS ORDERED: Heparin Sodium 5,000 Units/ML Vial IVPUSH SCH (17:00)
[2019-02-15] MEDS ORDERED: LORazepam 2 MG/ML SDV IVPUSH PRN ×3 (17:22→17:30)
[2019-02-15] MEDS ORDERED: Ondansetron 4 MG Tab.DIS PO PRN (17:36)
[2019-02-15] MEDS: Folic Acid 1 MG Tab PO SCH (17:37)
[2019-02-15] MEDS: Lactulose Soln 10 GM/15 ML 15 ML UD Cup PO SCH (17:37)
[2019-02-15] MEDS: Pantoprazole 40 MG in Sodium Chloride 0.9% 10 ML IV SCH (17:38)
[2019-02-15] MEDS: Heparin Sodium 5,000 Units/ML Vial SUBCUT SCH (17:39)
[2019-02-15] MEDS ORDERED: Magnesium Sulfate/Water 2 GM in Premix Bag 1 BAG IV ONE ×2 (18:01→23:00)
[2019-02-16] MEDS: Dextrose 5%-0.9% NaCl with KCl 1,000 ML IV SCH ×3 (00:46→18:37)
[2019-02-16] MEDS: Heparin Sodium 5,000 Units/ML Vial SUBCUT SCH ×3 (00:46→16:22)
[2019-02-16 06:28] LABS: CARBON DIOXIDE,CO2 23.1 mmol/L (21.0-32.0); CHLORIDE,CL 107 mmol/L (98-107); GLUCOSE RANDOM 90 mg/dL (74-106); POTASSIUM,K 3.3 mmol/L (3.5-5.1); SODIUM,NA 140 mmol/L (136-148)
[2019-02-16 06:59] LABS: BLOOD UREA NITROGEN,BUN 6 mg/dL (7.0-18.0)
[2019-02-16] MEDS ORDERED: Potassium Chloride 20 MEQ Tab.ER PO ONE (07:51)
[2019-02-16] MEDS: Folic Acid 1 MG Tab PO SCH (08:29)
[2019-02-16] MEDS: Pantoprazole 40 MG in Sodium Chloride 0.9% 10 ML IV SCH (08:29)
[2019-02-16] MEDS: Lactulose Soln 10 GM/15 ML 15 ML UD Cup PO SCH (08:29)
[2019-02-16] MEDS: Albuterol/Ipratropium 3.0-0.5 MG/3 ML Neb Soln NEB PRN ×2 (09:10→19:54)
--- NOTE | 2019-02-16 09:21 | PCM.PN ---
<Francia Quinones - Last Filed: 02/16/19 12:12> - General Info Date of Service: 02/16/19 Subjective Update: Bedside: states belly is still "tight" but has had 2 watery BM since last night , eating and drinking well; denies any other complaints at this time. - Review of Systems General: Denies: Chills HEENT: Reports: No Symptoms Pulmonary: Reports: Cough. Denies: Shortness of Breath, Sputum Cardiovascular: Reports: No Symptoms Gastrointestinal: Reports: Abdominal Pain, Diarrhea. Denies: Constipation, Nausea, Vomiting Genitourinary: Reports: No Symptoms Musculoskeletal: Reports: No Symptoms Neurological: Reports: No Symptoms. Denies: Headache - Patient Data Vitals - Most Recent: Last Vital Signs Temp 98.2 F 02/16/19 07:53 Pulse 81 02/16/19 07:53 Resp 18 02/16/19 07:53 BP 104/72 02/16/19 07:53 Pulse Ox 92 L 02/16/19 07:53 Weight - Most Recent: 85 kg I&O - Last 24 Hours: Intake & Output 02/15/19 02/16/19 02/16/19 22:59 06:59 14:59 Intake Total 2200 Balance 2200 Lab Results Last 24 Hours: Laboratory Results - last 24 hr 02/15/19 02/15/19 02/15/19 Range/Units 10:09 10:09 10:09 WBC 11.73 H (4.0-11.0) K/uL RBC 5.11 (4.50-5.90) M/uL Hgb 17.7 H (13.0-17.0) g/dL Hct 49.1 (38.0-50.0) % MCV 96.1 (80.0-98.0) fL MCH 34.6 H (27.0-32.0) pg MCHC 36.0 (31.0-37.0) g/dL RDW Std Deviation 56.0 (28.0-62.0) fl RDW Coeff of Manolo 16 H (11.0-15.0) % Plt Count 188 (150-400) K/uL MPV 10.50 (7.40-12.00) fL Neut % (Auto) (48.0-80.0) % Lymph % (Auto) (16.0-40.0) % [place] % (Auto) (0.0-15.0) % Eos % (Auto) (0.0-7.0) % Baso % (Auto) (0.0-1.5) % Neut # (Auto) (1.4-5.7) K/uL Lymph # (Auto) (0.6-2.4) K/uL [place] # (Auto) (0.0-0.8) K/uL Eos # (Auto) (0.0-0.7) K/uL Baso # (Auto) (0.0-0.1) K/uL Neutrophils % (Manual) 73 (48.0-80.0) % Lymphocytes % (Manual) 19 (16.0-40.0) % Monocytes % (Manual) 6 (0.0-15.0) % Eosinophils % (Manual) 2 (0.0-7.0) % Nucleated RBC % 0.0 /100WBC Absolute Seg Neuts 8.6 H (1.4-5.7) Lymphocytes # (Manual) 2.2 (0.6-2.4) Monocytes # (Manual) 0.7 (0.0-0.8) Eosinophils # (Manual) 0.2 (0.0-0.7) Nucleated RBCs # K/uL INR 1.29 VBG pH 7.51 H (7.31-7.41) VBG pCO2 31 L (35-45) mmHG VBG pO2 51 H (30-40) mmHG VBG HCO3 24 (22-30) mEq/L VBG Total CO2 20 L (41-51) mmol/L VBG Base Excess 2.2 (-3.0-3.0) Sodium (136-148) mmol/L Potassium (3.5-5.1) mmol/L Chloride (98-107) mmol/L Carbon Dioxide (21.0-32.0) mmol/L BUN (7.0-18.0) mg/dL Creatinine (0.8-1.3) mg/dL Est Cr Clr Drug Dosing mL/min Estimated GFR (MDRD) ml/min Glucose (74-106) mg/dL Calcium (8.5-10.1) mg/dL Magnesium (1.8-2.4) mg/dL Total Bilirubin (0.2-1.0) mg/dL AST (15-37) IU/L ALT (14-63) IU/L Alkaline Phosphatase (46-116) U/L Ammonia (19-54) ug/dL Total Protein (6.4-8.2) g/dL Albumin (3.4-5.0) g/dL Globulin (2.6-4.0) g/dL Albumin/Globulin Ratio (0.9-1.6) Urine Color Urine Appearance Urine pH (5.0-8.0) Ur Specific [place] (1.001-1.035) Urine Protein (NEGATIVE) mg/dL Urine Glucose (UA) (NEGATIVE) mg/dL Urine Ketones (NEGATIVE) mg/dL Urine Occult Blood (NEGATIVE) Urine Nitrite (NEGATIVE) Urine Bilirubin (NEGATIVE) Urine Ictotest Urine Urobilinogen (<2.0) EU/dL Ur Leukocyte Esterase (NEGATIVE) Urine RBC (0-2/HPF) Urine WBC (0-5/HPF) Ur Epithelial Cells (NONE-FEW) Urine Bacteria (NEGATIVE) Urine Mucus (NONE-MOD) Fluid Type Fluid Color Fluid Appearance Fluid pH Fluid WBC K/uL Fluid RBC M/uL Fluid Mononuclear Cell % Fl Polymorphonucl Cell % Ethyl Alcohol mg/dL 02/15/19 02/15/19 02/15/19 Range/Units 10:09 10:09 14:28 WBC (4.0-11.0) K/uL RBC (4.50-5.90) M/uL Hgb (13.0-17.0) g/dL Hct (38.0-50.0) % MCV (80.0-98.0) fL MCH (27.0-32.0) pg MCHC (31.0-37.0) g/dL RDW Std Deviation (28.0-62.0) fl RDW Coeff of Manolo (11.0-15.0) % Plt Count (150-400) K/uL MPV (7.40-12.00) fL Neut % (Auto) (48.0-80.0) % Lymph % (Auto) (16.0-40.0) % Kem[place] % (Auto) (0.0-15.0) % Eos % (Auto) (0.0-7.0) % Baso % (Auto) (0.0-1.5) % Neut # (Auto) (1.4-5.7) K/uL Lymph # (Auto) (0.6-2.4) K/uL [place] # (Auto) (0.0-0.8) K/uL Eos # (Auto) (0.0-0.7) K/uL Baso # (Auto) (0.0-0.1) K/uL Neutrophils % (Manual) (48.0-80.0) % Lymphocytes % (Manual) (16.0-40.0) % Monocytes % (Manual) (0.0-15.0) % Eosinophils % (Manual) (0.0-7.0) % Nucleated RBC % /100WBC Absolute Seg Neuts (1.4-5.7) Lymphocytes # (Manual) (0.6-2.4) Monocytes # (Manual) (0.0-0.8) Eosinophils # (Manual) (0.0-0.7) Nucleated RBCs # K/uL INR VBG pH (7.31-7.41) VBG pCO2 (35-45) mmHG VBG pO2 (30-40) mmHG VBG HCO3 (22-30) mEq/L VBG Total CO2 (41-51) mmol/L VBG Base Excess (-3.0-3.0) Sodium 135 L (136-148) mmol/L Potassium 2.8 L (3.5-5.1) mmol/L Chloride 97 L (98-107) mmol/L Carbon Dioxide 23.9 (21.0-32.0) mmol/L BUN 8 (7.0-18.0) mg/dL Creatinine 1.0 (0.8-1.3) mg/dL Est Cr Clr Drug Dosing 77.06 mL/min Estimated GFR (MDRD) > 60.0 ml/min Glucose 104 (74-106) mg/dL Calcium 8.7 (8.5-10.1) mg/dL Magnesium 1.6 L (1.8-2.4) mg/dL Total Bilirubin 2.1 H (0.2-1.0) mg/dL AST 61 H (15-37) IU/L ALT 32 (14-63) IU/L Alkaline Phosphatase 144 H (46-116) U/L Ammonia (19-54) ug/dL Total Protein 9.3 H (6.4-8.2) g/dL Albumin 2.8 L (3.4-5.0) g/dL Globulin 6.5 H (2.6-4.0) g/dL Albumin/Globulin Ratio 0.4 L (0.9-1.6) Urine Color Urine Appearance Urine pH (5.0-8.0) Ur Specific [place] (1.001-1.035) Urine Protein (NEGATIVE) mg/dL Urine Glucose (UA) (NEGATIVE) mg/dL Urine Ketones (NEGATIVE) mg/dL Urine Occult Blood (NEGATIVE) Urine Nitrite (NEGATIVE) Urine Bilirubin (NEGATIVE) Urine Ictotest Urine Urobilinogen (<2.0) EU/dL Ur Leukocyte Esterase (NEGATIVE) Urine RBC (0-2/HPF) Urine WBC (0-5/HPF) Ur Epithelial Cells (NONE-FEW) Urine Bacteria (NEGATIVE) Urine Mucus (NONE-MOD) Fluid Type PER Fluid Color YELLOW Fluid Appearance CLEAR Fluid pH Fluid WBC 0.25 K/uL Fluid RBC 0.00 M/uL Fluid Mononuclear Cell 85.7 % Fl Polymorphonucl Cell 14.3 % Ethyl Alcohol 4 mg/dL 02/15/19 02/15/19 02/15/19 Range/Units 14:28 15:00 16:46 WBC (4.0-11.0) K/uL RBC (4.50-5.90) M/uL Hgb (13.0-17.0) g/dL Hct (38.0-50.0) % MCV (80.0-98.0) fL MCH (27.0-32.0) pg MCHC (31.0-37.0) g/dL RDW Std Deviation (28.0-62.0) fl RDW Coeff of Manolo (11.0-15.0) % Plt Count (150-400) K/uL MPV (7.40-12.00) fL Neut % (Auto) (48.0-80.0) % Lymph % (Auto) (16.0-40.0) % Kem[place] % (Auto) (0.0-15.0) % Eos % (Auto) (0.0-7.0) % Baso % (Auto) (0.0-1.5) % Neut # (Auto) (1.4-5.7) K/uL Lymph # (Auto) (0.6-2.4) K/uL Kem[place] # (Auto) (0.0-0.8) K/uL Eos # (Auto) (0.0-0.7) K/uL Baso # (Auto) (0.0-0.1) K/uL Neutrophils % (Manual) (48.0-80.0) % Lymphocytes % (Manual) (16.0-40.0) % Monocytes % (Manual) (0.0-15.0) % Eosinophils % (Manual) (0.0-7.0) % Nucleated RBC % /100WBC Absolute Seg Neuts (1.4-5.7) Lymphocytes # (Manual) (0.6-2.4) Monocytes # (Manual) (0.0-0.8) Eosinophils # (Manual) (0.0-0.7) Nucleated RBCs # K/uL INR VBG pH (7.31-7.41) VBG pCO2 (35-45) mmHG VBG pO2 (30-40) mmHG VBG HCO3 (22-30) mEq/L VBG Total CO2 (41-51) mmol/L VBG Base Excess (-3.0-3.0) Sodium (136-148) mmol/L Potassium (3.5-5.1) mmol/L Chloride (98-107) mmol/L Carbon Dioxide (21.0-32.0) mmol/L BUN (7.0-18.0) mg/dL Creatinine (0.8-1.3) mg/dL Est Cr Clr Drug Dosing mL/min Estimated GFR (MDRD) ml/min Glucose (74-106) mg/dL Calcium (8.5-10.1) mg/dL Magnesium (1.8-2.4) mg/dL Total Bilirubin (0.2-1.0) mg/dL AST (15-37) IU/L ALT (14-63) IU/L Alkaline Phosphatase (46-116) U/L Ammonia 105 H (19-54) ug/dL Total Protein (6.4-8.2) g/dL Albumin (3.4-5.0) g/dL Globulin (2.6-4.0) g/dL Albumin/Globulin Ratio (0.9-1.6) Urine Color YELLOW Urine Appearance CLEAR Urine pH 6.5 (5.0-8.0) Ur Specific [place] 1.010 (1.001-1.035) Urine Protein NEGATIVE (NEGATIVE) mg/dL Urine Glucose (UA) NEGATIVE (NEGATIVE) mg/dL Urine Ketones NEGATIVE (NEGATIVE) mg/dL Urine Occult Blood NEGATIVE (NEGATIVE) Urine Nitrite POSITIVE H (NEGATIVE) Urine Bilirubin MODERATE H (NEGATIVE) Urine Ictotest NEGATIVE Urine Urobilinogen 4.0 H (<2.0) EU/dL Ur Leukocyte Esterase SMALL H (NEGATIVE) Urine RBC 0-3 (0-2/HPF) Urine WBC 1-5 (0-5/HPF) Ur Epithelial Cells RARE (NONE-FEW) Urine Bacteria FEW (NEGATIVE) Urine Mucus LIGHT (NONE-MOD) Fluid Type PER Fluid Color Fluid Appearance Fluid pH 7.0 Fluid WBC K/uL Fluid RBC M/uL Fluid Mononuclear Cell % Fl Polymorphonucl Cell % Ethyl Alcohol mg/dL 02/16/19 02/16/19 Range/Units 05:13 05:13 WBC 8.53 (4.0-11.0) K/uL RBC 4.08 L (4.50-5.90) M/uL Hgb 13.8 (13.0-17.0) g/dL Hct 39.8 (38.0-50.0) % MCV 97.5 (80.0-98.0) fL MCH 33.8 H (27.0-32.0) pg MCHC 34.7 (31.0-37.0) g/dL RDW Std Deviation 57.3 (28.0-62.0) fl RDW Coeff of Manolo 16 H (11.0-15.0) % Plt Count 171 (150-400) K/uL MPV 10.40 (7.40-12.00) fL Neut % (Auto) 62.5 (48.0-80.0) % Lymph % (Auto) 18.9 (16.0-40.0) % Kem[place] % (Auto) 13.7 (0.0-15.0) % Eos % (Auto) 4.3 (0.0-7.0) % Baso % (Auto) 0.6 (0.0-1.5) % Neut # (Auto) 5.3 (1.4-5.7) K/uL Lymph # (Auto) 1.6 (0.6-2.4) K/uL [place] # (Auto) 1.2 H (0.0-0.8) K/uL Eos # (Auto) 0.4 (0.0-0.7) K/uL Baso # (Auto) 0.1 (0.0-0.1) K/uL Neutrophils % (Manual) (48.0-80.0) % Lymphocytes % (Manual) (16.0-40.0) % Monocytes % (Manual) (0.0-15.0) % Eosinophils % (Manual) (0.0-7.0) % Nucleated RBC % 0.0 /100WBC Absolute Seg Neuts (1.4-5.7) Lymphocytes # (Manual) (0.6-2.4) Monocytes # (Manual) (0.0-0.8) Eosinophils # (Manual) (0.0-0.7) Nucleated RBCs # 0 K/uL INR VBG pH (7.31-7.41) VBG pCO2 (35-45) mmHG VBG pO2 (30-40) mmHG VBG HCO3 (22-30) mEq/L VBG Total CO2 (41-51) mmol/L VBG Base Excess (-3.0-3.0) Sodium 140 (136-148) mmol/L Potassium 3.3 L (3.5-5.1) mmol/L Chloride 107 (98-107) mmol/L Carbon Dioxide 23.1 (21.0-32.0) mmol/L BUN 6 L (7.0-18.0) mg/dL Creatinine 0.9 (0.8-1.3) mg/dL Est Cr Clr Drug Dosing 85.62 mL/min Estimated GFR (MDRD) > 60.0 ml/min Glucose 90 (74-106) mg/dL Calcium 7.2 L (8.5-10.1) mg/dL Magnesium (1.8-2.4) mg/dL Total Bilirubin 1.1 H (0.2-1.0) mg/dL AST 47 H (15-37) IU/L ALT 19 (14-63) IU/L Alkaline Phosphatase 98 (46-116) U/L Ammonia (19-54) ug/dL Total Protein 6.4 (6.4-8.2) g/dL Albumin 1.8 L (3.4-5.0) g/dL Globulin 4.6 H (2.6-4.0) g/dL Albumin/Globulin Ratio 0.4 L (0.9-1.6) Urine Color Urine Appearance Urine pH (5.0-8.0) Ur Specific [place] (1.001-1.035) Urine Protein (NEGATIVE) mg/dL Urine Glucose (UA) (NEGATIVE) mg/dL Urine Ketones (NEGATIVE) mg/dL Urine Occult Blood (NEGATIVE) Urine Nitrite (NEGATIVE) Urine Bilirubin (NEGATIVE) Urine Ictotest Urine Urobilinogen (<2.0) EU/dL Ur Leukocyte Esterase (NEGATIVE) Urine RBC (0-2/HPF) Urine WBC (0-5/HPF) Ur Epithelial Cells (NONE-FEW) Urine Bacteria (NEGATIVE) Urine Mucus (NONE-MOD) Fluid Type Fluid Color Fluid Appearance Fluid pH Fluid WBC K/uL Fluid RBC M/uL Fluid Mononuclear Cell % Fl Polymorphonucl Cell % Ethyl Alcohol mg/dL Jesús Results Last 24 Hours: Microbiology 02/15/19 14:28 Gram Stain - Preliminary Ascities Fluid Med Orders - Current: Current Medications Albuterol/Ipratropium (Duoneb 3.0-0.5 Mg/3 Ml) 3 ml NEB Q4HRRT PRN PRN Reason: Shortness of Breath Last Admin: 02/16/19 09:10 Dose: 3 ml Folic Acid (Folic Acid) 1 mg PO DAILY [facility] Last Admin: 02/16/19 08:29 Dose: 1 mg Heparin Sodium (Porcine) (Heparin Sodium) 5,000 units SUBCUT Q8H [facility] Last Admin: 02/16/19 08:29 Dose: 5,000 units Potassium Chloride/Dextrose/Sod Cl (D5 Ns With 20 Meq Kcl) 1,000 mls @ 125 mls/ hr IV ASDIRECTED [facility] Last Admin: 02/16/19 08:32 Dose: 125 mls/hr Pantoprazole Sodium 40 mg/ (Sodium Chloride) 10 mls @ 300 mls/hr IV DAILY [facility] Last Admin: 02/16/19 08:29 Dose: 300 mls/hr Ceftriaxone Sodium/Dextrose 2 (gm/ Premix) 50 mls @ 100 mls/hr IV Q24H [facility] Thiamine HCl 100 mg/ Sodium (Chloride) 101 mls @ 202 mls/hr IV DAILY [facility] Lactulose (Chronulac) 10 gm PO DAILY [facility] Last Admin: 02/16/19 08:29 Dose: 10 gm Lorazepam (Ativan) 1 mg IVPUSH .Q5MIN PRN PRN Reason: Seizures Lorazepam (Ativan) 0 mg IVPUSH Q4H PRN; Protocol PRN Reason: Other Ondansetron HCl (Zofran Odt) 4 mg PO Q6H PRN PRN Reason: Nausea/Vomiting Discontinued Medications Heparin Sodium (Porcine) (Heparin Sodium) 5,000 units IVPUSH Q8H [facility] Sodium Chloride (Normal Saline) 1,000 mls @ 999 mls/hr IV .BOLUS ONE Stop: 02/15/19 10:59 Last Admin: 02/15/19 10:15 Dose: 999 mls/hr Thiamine HCl 100 mg/ Sodium (Chloride) 101 mls @ 202 mls/hr IV ONETIME ONE Stop: 02/15/19 10:00 Last Admin: 02/15/19 10:25 Dose: 202 mls/hr Ceftriaxone Sodium/Dextrose 1 (gm/ Premix) 50 mls @ 100 mls/hr IV ONETIME ONE Stop: 02/15/19 15:54 Last Admin: 02/15/19 15:32 Dose: 100 mls/hr Sodium Chloride (Normal Saline) 500 mls @ 500 mls/hr IV STAT ONE Stop: 02/15/19 17:47 Last Admin: 02/15/19 17:41 Dose: 500 mls/hr Ceftriaxone Sodium/Dextrose 1 (gm/ Premix) 50 mls @ 100 mls/hr IV ONETIME ONE Stop: 02/15/19 17:29 Last Admin: 02/15/19 17:35 Dose: Not Given Thiamine HCl 100 mg/ Sodium (Chloride) 101 mls @ 202 mls/hr IV DAILY ONE Stop: 02/15/19 17:59 Last Admin: 02/15/19 17:35 Dose: Not Given Magnesium Sulfate 2 gm/ Premix 50 mls @ 25 mls/hr IV ONETIME ONE Stop: 02/15/19 20:00 Last Admin: 02/15/19 20:04 Dose: Not Given Magnesium Sulfate 2 gm/ Premix 50 mls @ 25 mls/hr IV ONETIME ONE Stop: 02/16/19 00:59 Last Admin: 02/15/19 22:07 Dose: 25 mls/hr Iopamidol (Isovue Multipack-370 (76%)) 100 ml IVPUSH ONETIME STA Stop: 02/15/19 11:39 Last Admin: 02/15/19 12:11 Dose: 100 ml Lidocaine HCl (Xylocaine-Mpf 1%) 5 ml INJECT ONETIME ONE Stop: 02/15/19 13:30 Last Admin: 02/15/19 13:38 Dose: 5 ml Lorazepam (Ativan) 2 mg IVPUSH ONETIME ONE Stop: 02/15/19 10:00 Last Admin: 02/15/19 10:15 Dose: 2 mg Lorazepam (Ativan) 0 mg IVPUSH ONETIME ONE; Protocol Stop: 02/15/19 16:48 Last Admin: 02/15/19 17:35 Dose: Not Given Lorazepam (Ativan) 0 mg IVPUSH SEECOMMENT PRN; Protocol PRN Reason: CWAT Nicotine (Habitrol) 21 mg TRDERM ONETIME ONE Stop: 02/15/19 15:09 Last Admin: 02/15/19 15:12 Dose: 21 mg Ondansetron HCl (Zofran) 4 mg IVPUSH ONETIME ONE Stop: 02/15/19 10:00 Last Admin: 02/15/19 10:15 Dose: 4 mg Potassium Chloride (Potassium Chloride) 40 meq PO ONETIME ONE Stop: 02/15/19 11:43 Last Admin: 02/15/19 12:35 Dose: 40 meq Potassium Chloride (Klor-Con M20) 40 meq PO ONETIME ONE Stop: 02/16/19 07:52 Last Admin: 02/16/19 08:29 Dose: 40 meq - Exam General: Alert, Oriented, Cooperative, No Acute Distress HEENT: EOMI, Mucous Membr. Moist/[place] Neck: Supple Lungs: Other (tight BS ; prolonged expiratory phase ) Cardiovascular: Regular Rate, Regular Rhythm GI/Abdominal Exam: Other (distended abdomen; neg fluid wave, tenderness w. deep palpation. ) Back Exam: Full Range of Motion Skin: Warm, Dry Neurological: No New Focal Deficit Psy/Mental Status: Alert, Normal Mood Sepsis Event Note - Evaluation Sepsis Screening Result: No Definite Risk - Focused Exam Vital Signs: Vital Signs Temp Pulse Resp BP Pulse Ox 02/16/19 07:53 98.2 F 81 18 104/72 92 L 02/16/19 05:45 91/65 02/16/19 04:00 97.1 F 79 22 H 93/60 92 L 02/16/19 00:00 97.7 F 86 19 103/66 92 L Date Exam was Performed: 02/16/19 Time Exam was Performed: 12:12 - Problem List Review Problem List Initiated/Reviewed/Updated: Yes - My Orders Last 24 Hours: My Active Orders 02/15/19 16:45 Pantoprazole [ProTONIX IV] 40 mg Sodium Chloride 0.9% [Normal Saline] 10 ml IV DAILY Blood Culture x2 Reflex Set [OM.PC] Stat 02/15/19 16:46 CIWAA Assessment [RC] Q4H 02/15/19 16:47 RT Aerosol Therapy [RC] ASDIRECTED Albuterol/Ipratropium [DuoNeb 3.0-0.5 MG/3 ML] 3 ml NEB Q4HRRT PRN 02/15/19 16:51 Code Status [Resuscitation Status] Routine 02/15/19 17:00 Heparin Sodium 5,000 units SUBCUT Q8H Lactulose [Chronulac] 10 gm PO DAILY 02/15/19 17:25 CULTURE BLOOD [BC] Stat 02/15/19 17:26 LORazepam [Ativan] See Protocol IVPUSH Q4H PRN 02/15/19 17:30 Folic Acid 1 mg PO DAILY LORazepam [Ativan] 1 mg IVPUSH .Q5MIN PRN 02/15/19 17:36 Ondansetron [Zofran ODT] 4 mg PO Q6H PRN 02/15/19 17:40 CULTURE BLOOD [BC] Stat 02/15/19 Dinner High Protein Diet [DIET] 02/16/19 10:30 Thiamine [Vitamin B-1] 100 mg Sodium Chloride 0.9% [Normal Saline] 100 ml IV DAILY 02/16/19 15:30 cefTRIAXone [Rocephin in Dextrose,Iso-Osm 2 GM/50 ML] 2 gm Premix Bag 1 bag IV Q24H 02/16/19 16:44 Echo Comp wo Cont [US] Urgent - Plan Plan:: Assessment 1. Abdominal ascites with concern for SBP with suspected cirrhosis 2. Alcohol cirrhosis 3. Transaminitis 4. Hypokalemia 5. Leukocytosis. 6. Past medical history: Hypertension, chronic alcohol abuse, tobacco abuse, Plan Admit to inpatient. Full code. DVT prophylaxis; heparin every 8 subcu. GI prophylaxis; IV PPI 40 daily. Up ad joe. diet: Regular. 1. Ascites with concerns about SBP; cell count consistent with SBP awaiting body cultures: Continue on ceftriaxone 2 g daily x5 days. CT abdomen consistent with moderate ascites. Chest x-ray: Negative for pleural effusions versus infiltrates. Volume down: We will give another 500 cc bolus right now. Awaiting cultures. Concerns for alcoholic cardiomyopathy: Echo ordered. Have given Albumin this AM to help move fluid ; reassess this afternoon for need for Lasix if necessary Concerns for infectious process: UA with reflex ordered. Lactulose 10 mg daily ordered:continue Child [place] MELD score UTI: on Ceftriaxone; will adjust abx if necessary 2. Hypokalemia: received 40 in AM 3. Check ammonia 4. ETOH abuse: CIWAA/Ativan protocol 5. Duo-nebs ordered PRN: concern for COPD 6. pt. understood plan. <Anup Mcgowan - Last Filed: 02/22/19 20:36> - Patient Data Vitals - Most Recent: Last Vital Signs Temp 37.2 C 02/18/19 11:52 Pulse 90 02/18/19 11:52 Resp 18 02/18/19 11:52 BP 110/78 02/18/19 11:52 Pulse Ox 93 L 02/18/19 11:52 Med Orders - Current: Current Medications Discontinued Medications Albuterol/Ipratropium (Duoneb 3.0-0.5 Mg/3 Ml) 3 ml NEB Q4HRRT PRN PRN Reason: Shortness of Breath Last Admin: 02/17/19 09:02 Dose: 3 ml Albuterol/Ipratropium (Duoneb 3.0-0.5 Mg/3 Ml) 3 ml NEB Q4HRRT [facility] Last Admin: 02/18/19 09:32 Dose: 3 ml Folic Acid (Folic Acid) 1 mg PO DAILY [facility] Last Admin: 02/18/19 08:57 Dose: 1 mg Furosemide (Lasix) 40 mg IVPUSH NOW ONE Stop: 02/16/19 12:41 Last Admin: 02/16/19 13:14 Dose: 40 mg Furosemide (Lasix) 20 mg IVPUSH NOW ONE Stop: 02/17/19 19:29 Last Admin: 02/17/19 20:36 Dose: 20 mg Furosemide (Lasix) 20 mg IVPUSH NOW ONE Stop: 02/18/19 10:29 Last Admin: 02/18/19 11:16 Dose: 20 mg Heparin Sodium (Porcine) (Heparin Sodium) 5,000 units IVPUSH Q8H [facility] Heparin Sodium (Porcine) (Heparin Sodium) 5,000 units SUBCUT Q8H [facility] Last Admin: 02/18/19 08:58 Dose: 5,000 units Sodium Chloride (Normal Saline) 1,000 mls @ 999 mls/hr IV .BOLUS ONE Stop: 02/15/19 10:59 Last Admin: 02/15/19 10:15 Dose: 999 mls/hr Thiamine HCl 100 mg/ Sodium (Chloride) 101 mls @ 202 mls/hr IV ONETIME ONE Stop: 02/15/19 10:00 Last Admin: 02/15/19 10:25 Dose: 202 mls/hr Potassium Chloride/Dextrose/Sod Cl (D5 Ns With 20 Meq Kcl) 1,000 mls @ 125 mls/ hr IV ASDIRECTED [facility] Last Admin: 02/17/19 02:32 Dose: 125 mls/hr Ceftriaxone Sodium/Dextrose 1 (gm/ Premix) 50 mls @ 100 mls/hr IV ONETIME ONE Stop: 02/15/19 15:54 Last Admin: 02/15/19 15:32 Dose: 100 mls/hr Pantoprazole Sodium 40 mg/ (Sodium Chloride) 10 mls @ 300 mls/hr IV DAILY [facility] Last Admin: 02/18/19 08:57 Dose: 300 mls/hr Sodium Chloride (Normal Saline) 500 mls @ 500 mls/hr IV STAT ONE Stop: 02/15/19 17:47 Last Admin: 02/15/19 17:41 Dose: 500 mls/hr Ceftriaxone Sodium/Dextrose 1 (gm/ Premix) 50 mls @ 100 mls/hr IV ONETIME ONE Stop: 02/15/19 17:29 Last Admin: 02/15/19 17:35 Dose: Not Given Thiamine HCl 100 mg/ Sodium (Chloride) 101 mls @ 202 mls/hr IV DAILY ONE Stop: 02/15/19 17:59 Last Admin: 02/15/19 17:35 Dose: Not Given Ceftriaxone Sodium/Dextrose 2 (gm/ Premix) 50 mls @ 100 mls/hr IV Q24H [facility] Last Admin: 02/17/19 15:18 Dose: 100 mls/hr Thiamine HCl 100 mg/ Sodium (Chloride) 101 mls @ 202 mls/hr IV DAILY [facility] Last Admin: 02/18/19 09:58 Dose: Not Given Magnesium Sulfate 2 gm/ Premix 50 mls @ 25 mls/hr IV ONETIME ONE Stop: 02/15/19 20:00 Last Admin: 02/15/19 20:04 Dose: Not Given Magnesium Sulfate 2 gm/ Premix 50 mls @ 25 mls/hr IV ONETIME ONE Stop: 02/16/19 00:59 Last Admin: 02/15/19 22:07 Dose: 25 mls/hr Albumin Human (Buminate 5%) 250 mls @ 125 mls/hr IV ONETIME ONE Stop: 02/16/19 12:15 Last Admin: 02/16/19 11:20 Dose: Not Given Albumin Human (Flexbumin 25%) 12.5 gm in 50 mls @ 100 mls/hr IV Q1H [facility] Stop: 02/16/19 11:59 Last Admin: 02/16/19 13:08 Dose: 100 mls/hr Thiamine HCl 100 mg/ Sodium (Chloride) 101 mls @ 202 mls/hr IV Q24H [facility] Last Admin: 02/18/19 10:04 Dose: 202 mls/hr Iopamidol (Isovue Multipack-370 (76%)) 100 ml IVPUSH ONETIME STA Stop: 02/15/19 11:39 Last Admin: 02/15/19 12:11 Dose: 100 ml Lactulose (Chronulac) 10 gm PO DAILY [facility] Last Admin: 02/18/19 08:56 Dose: 10 gm Lidocaine HCl (Xylocaine-Mpf 1%) 5 ml INJECT ONETIME ONE Stop: 02/15/19 13:30 Last Admin: 02/15/19 13:38 Dose: 5 ml Lorazepam (Ativan) 2 mg IVPUSH ONETIME ONE Stop: 02/15/19 10:00 Last Admin: 02/15/19 10:15 Dose: 2 mg Lorazepam (Ativan) 0 mg IVPUSH ONETIME ONE; Protocol Stop: 02/15/19 16:48 Last Admin: 02/15/19 17:35 Dose: Not Given Lorazepam (Ativan) 1 mg IVPUSH .Q5MIN PRN PRN Reason: Seizures Lorazepam (Ativan) 0 mg IVPUSH SEECOMMENT PRN; Protocol PRN Reason: CWAT Lorazepam (Ativan) 0 mg IVPUSH Q4H PRN; Protocol PRN Reason: Other Morphine Sulfate (Morphine) 1 mg IVPUSH Q4H PRN PRN Reason: Pain Last Admin: 02/16/19 13:15 Dose: 1 mg Morphine Sulfate (Morphine) 1 mg IVPUSH Q2H PRN PRN Reason: Pain Last Admin: 02/16/19 16:20 Dose: 1 mg Multivitamins/Minerals/Vitamin C (Tab-A-Darien) 1 tab PO DAILY [facility] Last Admin: 02/18/19 08:57 Dose: 1 tab Nicotine (Habitrol) 21 mg TRDERM ONETIME ONE Stop: 02/15/19 15:09 Last Admin: 02/15/19 15:12 Dose: 21 mg Ondansetron HCl (Zofran) 4 mg IVPUSH ONETIME ONE Stop: 02/15/19 10:00 Last Admin: 02/15/19 10:15 Dose: 4 mg Ondansetron HCl (Zofran Odt) 4 mg PO Q6H PRN PRN Reason: Nausea/Vomiting Last Admin: 02/16/19 13:11 Dose: 4 mg Potassium Chloride (Potassium Chloride) 40 meq PO ONETIME ONE Stop: 02/15/19 11:43 Last Admin: 02/15/19 12:35 Dose: 40 meq Potassium Chloride (Klor-Con M20) 40 meq PO ONETIME ONE Stop: 02/16/19 07:52 Last Admin: 02/16/19 08:29 Dose: 40 meq Prednisone (Prednisone) 40 mg PO WITHBREAKFAST [facility] Last Admin: 02/18/19 08:57 Dose: 40 mg Fluticasone/Salmeterol (Advair Diskus 100-50) 0 puff INH BID [facility] Last Admin: 02/18/19 09:32 Dose: 1 inhalation Simethicone (Simethicone) 80 mg PO Q4H PRN PRN Reason: bloating Last Admin: 02/18/19 06:39 Dose: 80 mg Spironolactone (Aldactone) 50 mg PO DAILY [facility] - Plan Plan:: I have seen and evaluated the patient and agree with the residents note unless specified in my note
[2019-02-16] MEDS ORDERED: Albumin 5% 250 ML IV ONE (10:16)
[2019-02-16] MEDS: Thiamine 100 MG in Sodium Chloride 0.9% 100 ML IV SCH (10:44)
[2019-02-16] MEDS: Albumin 25% 12.5 GM/50 ML BAG IV SCH ×2 (11:24→13:08)
[2019-02-16] MEDS ORDERED: Furosemide 40 MG/4 ML VIAL IVPUSH ONE (12:40)
[2019-02-16] MEDS ORDERED: Morphine 2 MG/ML SYRINGE IVPUSH PRN ×2 (12:58→15:41)
[2019-02-16] MEDS: cefTRIAXone 2 GM in Premix Bag 1 BAG IV SCH (15:24)
[2019-02-16] MEDS: Fluticasone/Salmeterol 100-50 MCG Inhalation Powder 14/Diskus INH SCH (20:06)
[2019-02-17] MEDS: Heparin Sodium 5,000 Units/ML Vial SUBCUT SCH ×3 (00:22→16:23)
[2019-02-17] MEDS: Albuterol/Ipratropium 3.0-0.5 MG/3 ML Neb Soln NEB PRN ×2 (00:50→09:02)
[2019-02-17] MEDS: Dextrose 5%-0.9% NaCl with KCl 1,000 ML IV SCH (02:32)
[2019-02-17 06:52] LABS: BLOOD UREA NITROGEN,BUN 5 mg/dL (7.0-18.0); CARBON DIOXIDE,CO2 23.2 mmol/L (21.0-32.0); CHLORIDE,CL 107 mmol/L (98-107); GLUCOSE RANDOM 95 mg/dL (74-106); POTASSIUM,K 3.5 mmol/L (3.5-5.1); SODIUM,NA 141 mmol/L (136-148)
[2019-02-17] MEDS: Folic Acid 1 MG Tab PO SCH (08:00)
[2019-02-17] MEDS: Lactulose Soln 10 GM/15 ML 15 ML UD Cup PO SCH (08:00)
[2019-02-17] MEDS: Multivitamin Tab PO SCH (08:01)
[2019-02-17] MEDS: Pantoprazole 40 MG in Sodium Chloride 0.9% 10 ML IV SCH (08:01)
[2019-02-17] MEDS: Thiamine 100 MG in Sodium Chloride 0.9% 100 ML IV SCH (08:19)
[2019-02-17] MEDS: Fluticasone/Salmeterol 100-50 MCG Inhalation Powder 14/Diskus INH SCH ×2 (09:02→20:37)
--- NOTE | 2019-02-17 09:38 | PCM.PN ---
<Francia Quinones - Last Filed: 02/17/19 13:39> - General Info Date of Service: 02/17/19 Subjective Update: Bedside: c/o shortness of breath w/ wheezing ; cough w. mild sputum. Denies any chest pain - Review of Systems General: Denies: Fever, Fatigue, Malaise, Chills HEENT: Reports: No Symptoms Pulmonary: Reports: Shortness of Breath, Cough, Sputum, Wheezing. Denies: Pleuritic Chest Pain Cardiovascular: Reports: No Symptoms Gastrointestinal: Reports: Abdominal Pain, Diarrhea. Denies: Nausea, Vomiting Genitourinary: Reports: No Symptoms Musculoskeletal: Reports: No Symptoms Neurological: Denies: Dizziness, Headache Psychiatric: Denies: Anxiety, Agitation - Patient Data Vitals - Most Recent: Last Vital Signs Temp 98.2 F 02/17/19 07:42 Pulse 78 02/17/19 07:42 Resp 18 02/17/19 07:42 BP 95/67 02/17/19 07:42 Pulse Ox 90 L 02/17/19 07:42 Weight - Most Recent: 85 kg I&O - Last 24 Hours: Intake & Output 02/16/19 02/17/19 02/17/19 22:59 06:59 14:59 Intake Total 2102 2087 Output Total 685 500 Balance 1417 1587 Lab Results Last 24 Hours: Laboratory Results - last 24 hr 02/17/19 02/17/19 Range/Units 05:39 05:39 WBC 8.24 (4.0-11.0) K/uL RBC 3.98 L (4.50-5.90) M/uL Hgb 13.6 (13.0-17.0) g/dL Hct 39.5 (38.0-50.0) % MCV 99.2 H (80.0-98.0) fL MCH 34.2 H (27.0-32.0) pg MCHC 34.4 (31.0-37.0) g/dL RDW Std Deviation 59.1 (28.0-62.0) fl RDW Coeff of Manolo 17 H (11.0-15.0) % Plt Count 142 L (150-400) K/uL MPV 10.60 (7.40-12.00) fL Neut % (Auto) 67.6 (48.0-80.0) % Lymph % (Auto) 17.1 (16.0-40.0) % Lake % (Auto) 11.9 (0.0-15.0) % Eos % (Auto) 3.0 (0.0-7.0) % Baso % (Auto) 0.4 (0.0-1.5) % Neut # (Auto) 5.6 (1.4-5.7) K/uL Lymph # (Auto) 1.4 (0.6-2.4) K/uL [place] # (Auto) 1.0 H (0.0-0.8) K/uL Eos # (Auto) 0.3 (0.0-0.7) K/uL Baso # (Auto) 0.0 (0.0-0.1) K/uL Nucleated RBC % 0.0 /100WBC Nucleated RBCs # 0 K/uL Sodium 141 (136-148) mmol/L Potassium 3.5 (3.5-5.1) mmol/L Chloride 107 (98-107) mmol/L Carbon Dioxide 23.2 (21.0-32.0) mmol/L BUN 5 L (7.0-18.0) mg/dL Creatinine 1.0 (0.8-1.3) mg/dL Est Cr Clr Drug Dosing 77.06 mL/min Estimated GFR (MDRD) > 60.0 ml/min Glucose 95 (74-106) mg/dL Calcium 6.9 L (8.5-10.1) mg/dL Total Bilirubin 0.8 (0.2-1.0) mg/dL AST 44 H (15-37) IU/L ALT 23 (14-63) IU/L Alkaline Phosphatase 98 (46-116) U/L Total Protein 6.7 (6.4-8.2) g/dL Albumin 2.2 L (3.4-5.0) g/dL Globulin 4.5 H (2.6-4.0) g/dL Albumin/Globulin Ratio 0.5 L (0.9-1.6) Jesús Results Last 24 Hours: Microbiology 02/15/19 17:40 Aerobic Blood Culture - Preliminary Blood - Venous - Lab Draw NO GROWTH AFTER 1 DAY Anaerobic Blood Culture - Preliminary NO GROWTH AFTER 1 DAY 02/15/19 17:25 Aerobic Blood Culture - Preliminary Blood - Venous NO GROWTH AFTER 1 DAY Anaerobic Blood Culture - Preliminary NO GROWTH AFTER 1 DAY 02/15/19 14:28 Gram Stain - Preliminary Ascities Fluid Med Orders - Current: Current Medications Albuterol/Ipratropium (Duoneb 3.0-0.5 Mg/3 Ml) 3 ml NEB Q4HRRT PRN PRN Reason: Shortness of Breath Last Admin: 02/17/19 09:02 Dose: 3 ml Folic Acid (Folic Acid) 1 mg PO DAILY [facility] Last Admin: 02/17/19 08:00 Dose: 1 mg Heparin Sodium (Porcine) (Heparin Sodium) 5,000 units SUBCUT Q8H [facility] Last Admin: 02/17/19 08:00 Dose: 5,000 units Potassium Chloride/Dextrose/Sod Cl (D5 Ns With 20 Meq Kcl) 1,000 mls @ 125 mls/ hr IV ASDIRECTED [facility] Last Admin: 02/17/19 02:32 Dose: 125 mls/hr Pantoprazole Sodium 40 mg/ (Sodium Chloride) 10 mls @ 300 mls/hr IV DAILY [facility] Last Admin: 02/17/19 08:01 Dose: 300 mls/hr Ceftriaxone Sodium/Dextrose 2 (gm/ Premix) 50 mls @ 100 mls/hr IV Q24H [facility] Last Admin: 02/16/19 15:24 Dose: 100 mls/hr Thiamine HCl 100 mg/ Sodium (Chloride) 101 mls @ 202 mls/hr IV DAILY [facility] Last Admin: 02/17/19 08:19 Dose: 202 mls/hr Lactulose (Chronulac) 10 gm PO DAILY [facility] Last Admin: 02/17/19 08:00 Dose: 10 gm Lorazepam (Ativan) 1 mg IVPUSH .Q5MIN PRN PRN Reason: Seizures Lorazepam (Ativan) 0 mg IVPUSH Q4H PRN; Protocol PRN Reason: Other Morphine Sulfate (Morphine) 1 mg IVPUSH Q2H PRN PRN Reason: Pain Last Admin: 02/16/19 16:20 Dose: 1 mg Multivitamins/Minerals/Vitamin C (Tab-A-Darien) 1 tab PO DAILY [facility] Last Admin: 02/17/19 08:01 Dose: 1 tab Ondansetron HCl (Zofran Odt) 4 mg PO Q6H PRN PRN Reason: Nausea/Vomiting Last Admin: 02/16/19 13:11 Dose: 4 mg Fluticasone/Salmeterol (Advair Diskus 100-50) 0 puff INH BID [facility] Last Admin: 02/17/19 09:02 Dose: 1 inhalation Discontinued Medications Furosemide (Lasix) 40 mg IVPUSH NOW ONE Stop: 02/16/19 12:41 Last Admin: 02/16/19 13:14 Dose: 40 mg Heparin Sodium (Porcine) (Heparin Sodium) 5,000 units IVPUSH Q8H ONI[facility] Sodium Chloride (Normal Saline) 1,000 mls @ 999 mls/hr IV .BOLUS ONE Stop: 02/15/19 10:59 Last Admin: 02/15/19 10:15 Dose: 999 mls/hr Thiamine HCl 100 mg/ Sodium (Chloride) 101 mls @ 202 mls/hr IV ONETIME ONE Stop: 02/15/19 10:00 Last Admin: 02/15/19 10:25 Dose: 202 mls/hr Ceftriaxone Sodium/Dextrose 1 (gm/ Premix) 50 mls @ 100 mls/hr IV ONETIME ONE Stop: 02/15/19 15:54 Last Admin: 02/15/19 15:32 Dose: 100 mls/hr Sodium Chloride (Normal Saline) 500 mls @ 500 mls/hr IV STAT ONE Stop: 02/15/19 17:47 Last Admin: 02/15/19 17:41 Dose: 500 mls/hr Ceftriaxone Sodium/Dextrose 1 (gm/ Premix) 50 mls @ 100 mls/hr IV ONETIME ONE Stop: 02/15/19 17:29 Last Admin: 02/15/19 17:35 Dose: Not Given Thiamine HCl 100 mg/ Sodium (Chloride) 101 mls @ 202 mls/hr IV DAILY ONE Stop: 02/15/19 17:59 Last Admin: 02/15/19 17:35 Dose: Not Given Magnesium Sulfate 2 gm/ Premix 50 mls @ 25 mls/hr IV ONETIME ONE Stop: 02/15/19 20:00 Last Admin: 02/15/19 20:04 Dose: Not Given Magnesium Sulfate 2 gm/ Premix 50 mls @ 25 mls/hr IV ONETIME ONE Stop: 02/16/19 00:59 Last Admin: 02/15/19 22:07 Dose: 25 mls/hr Albumin Human (Buminate 5%) 250 mls @ 125 mls/hr IV ONETIME ONE Stop: 02/16/19 12:15 Last Admin: 02/16/19 11:20 Dose: Not Given Albumin Human (Flexbumin 25%) 12.5 gm in 50 mls @ 100 mls/hr IV Q1H [facility] Stop: 02/16/19 11:59 Last Admin: 02/16/19 13:08 Dose: 100 mls/hr Iopamidol (Isovue Multipack-370 (76%)) 100 ml IVPUSH ONETIME STA Stop: 02/15/19 11:39 Last Admin: 02/15/19 12:11 Dose: 100 ml Lidocaine HCl (Xylocaine-Mpf 1%) 5 ml INJECT ONETIME ONE Stop: 02/15/19 13:30 Last Admin: 02/15/19 13:38 Dose: 5 ml Lorazepam (Ativan) 2 mg IVPUSH ONETIME ONE Stop: 02/15/19 10:00 Last Admin: 02/15/19 10:15 Dose: 2 mg Lorazepam (Ativan) 0 mg IVPUSH ONETIME ONE; Protocol Stop: 02/15/19 16:48 Last Admin: 02/15/19 17:35 Dose: Not Given Lorazepam (Ativan) 0 mg IVPUSH SEECOMMENT PRN; Protocol PRN Reason: CWAT Morphine Sulfate (Morphine) 1 mg IVPUSH Q4H PRN PRN Reason: Pain Last Admin: 02/16/19 13:15 Dose: 1 mg Nicotine (Habitrol) 21 mg TRDERM ONETIME ONE Stop: 02/15/19 15:09 Last Admin: 02/15/19 15:12 Dose: 21 mg Ondansetron HCl (Zofran) 4 mg IVPUSH ONETIME ONE Stop: 02/15/19 10:00 Last Admin: 02/15/19 10:15 Dose: 4 mg Potassium Chloride (Potassium Chloride) 40 meq PO ONETIME ONE Stop: 02/15/19 11:43 Last Admin: 02/15/19 12:35 Dose: 40 meq Potassium Chloride (Klor-Con M20) 40 meq PO ONETIME ONE Stop: 02/16/19 07:52 Last Admin: 02/16/19 08:29 Dose: 40 meq - Exam Quality Assessment: Supplemental Oxygen General: Alert, Oriented HEENT: EOMI, Mucous Membr. Moist/[place] Neck: Supple Lungs: Other (wheezing; prolonged expiratory phase ; coarse bs ) Cardiovascular: Regular Rate, Regular Rhythm GI/Abdominal Exam: Other (distended abdomen; tense ; minimal interval changes ) Skin: Warm, Dry Neurological: No New Focal Deficit Psy/Mental Status: Alert Sepsis Event Note - Evaluation Sepsis Screening Result: No Definite Risk - Focused Exam Vital Signs: Vital Signs Temp Pulse Resp BP Pulse Ox 02/17/19 07:42 98.2 F 78 18 95/67 90 L 02/17/19 04:09 97.1 F 83 20 98/62 92 L 02/17/19 00:15 97.9 F 84 20 98/66 90 L Date Exam was Performed: 02/17/19 Time Exam was Performed: 13:39 - Problem List Review Problem List Initiated/Reviewed/Updated: Yes - My Orders Last 24 Hours: My Active Orders 02/16/19 10:30 Thiamine [Vitamin B-1] 100 mg Sodium Chloride 0.9% [Normal Saline] 100 ml IV DAILY 02/16/19 15:30 cefTRIAXone [Rocephin in Dextrose,Iso-Osm 2 GM/50 ML] 2 gm Premix Bag 1 bag IV Q24H 02/16/19 16:44 Echo Comp wo Cont [US] Urgent 02/16/19 18:49 RT Post Treatment Assessment [RC] Click to Edit RT Pre-Treatment Assessment [RC] Click to Edit 02/16/19 21:00 Fluticasone/Salmeterol [Advair Diskus 100-50] 0 puff INH BID 02/17/19 09:00 Multivitamins [Tab-A-Darien] 1 tab PO DAILY - Plan Plan:: Assessment 1. Abdominal ascites with concern for SBP with suspected cirrhosis 2. Alcohol cirrhosis 3. Transaminitis 4. Hypokalemia:repleted 5. Leukocytosis. 6. Past medical history: Hypertension, chronic alcohol abuse, tobacco abuse, 7. Cough/wheeze possible COPD exacerbation Plan Admit to inpatient. Full code. DVT prophylaxis; heparin every 8 subcu. GI prophylaxis; IV PPI 40 daily. Up ad joe. diet: Regular. 1. Ascites with concerns about SBP; cell count consistent with SBP awaiting body cultures: Continue on ceftriaxone 2 g daily x5 days. CT abdomen consistent with moderate ascites. Chest x-ray: Negative for pleural effusions versus infiltrates. Volume down: We will give another 500 cc bolus right now. Awaiting cultures. Concerns for alcoholic cardiomyopathy: Echo ordered. reassess this afternoon for need for Lasix if necessary Concerns for infectious process: UA with reflex ordered. Lactulose 10 mg daily ordered:continue Child [place] MELD score UTI: on Ceftriaxone; will adjust abx if necessary Cough/wheeze: started on Advair BID, prednisone 40 daily, Duo nebs continued. PT ordered to help prevent deconditioning to help w/ strength today; appreciate evaluations ETOH abuse: CIWAA/Ativan protocol Duo-nebs ordered PRN: concern for COPD pt. understood plan. <Anup Mcgowan - Last Filed: 02/22/19 20:36> - Patient Data Vitals - Most Recent: Last Vital Signs Temp 37.2 C 02/18/19 11:52 Pulse 90 02/18/19 11:52 Resp 18 02/18/19 11:52 BP 110/78 02/18/19 11:52 Pulse Ox 93 L 02/18/19 11:52 Med Orders - Current: Current Medications Discontinued Medications Albuterol/Ipratropium (Duoneb 3.0-0.5 Mg/3 Ml) 3 ml NEB Q4HRRT PRN PRN Reason: Shortness of Breath Last Admin: 02/17/19 09:02 Dose: 3 ml Albuterol/Ipratropium (Duoneb 3.0-0.5 Mg/3 Ml) 3 ml NEB Q4HRRT [facility] Last Admin: 02/18/19 09:32 Dose: 3 ml Folic Acid (Folic Acid) 1 mg PO DAILY [facility] Last Admin: 02/18/19 08:57 Dose: 1 mg Furosemide (Lasix) 40 mg IVPUSH NOW ONE Stop: 02/16/19 12:41 Last Admin: 02/16/19 13:14 Dose: 40 mg Furosemide (Lasix) 20 mg IVPUSH NOW ONE Stop: 02/17/19 19:29 Last Admin: 02/17/19 20:36 Dose: 20 mg Furosemide (Lasix) 20 mg IVPUSH NOW ONE Stop: 02/18/19 10:29 Last Admin: 02/18/19 11:16 Dose: 20 mg Heparin Sodium (Porcine) (Heparin Sodium) 5,000 units IVPUSH Q8H [facility] Heparin Sodium (Porcine) (Heparin Sodium) 5,000 units SUBCUT Q8H [facility] Last Admin: 02/18/19 08:58 Dose: 5,000 units Sodium Chloride (Normal Saline) 1,000 mls @ 999 mls/hr IV .BOLUS ONE Stop: 02/15/19 10:59 Last Admin: 02/15/19 10:15 Dose: 999 mls/hr Thiamine HCl 100 mg/ Sodium (Chloride) 101 mls @ 202 mls/hr IV ONETIME ONE Stop: 02/15/19 10:00 Last Admin: 02/15/19 10:25 Dose: 202 mls/hr Potassium Chloride/Dextrose/Sod Cl (D5 Ns With 20 Meq Kcl) 1,000 mls @ 125 mls/ hr IV ASDIRECTED [facility] Last Admin: 02/17/19 02:32 Dose: 125 mls/hr Ceftriaxone Sodium/Dextrose 1 (gm/ Premix) 50 mls @ 100 mls/hr IV ONETIME ONE Stop: 02/15/19 15:54 Last Admin: 02/15/19 15:32 Dose: 100 mls/hr Pantoprazole Sodium 40 mg/ (Sodium Chloride) 10 mls @ 300 mls/hr IV DAILY [facility] Last Admin: 02/18/19 08:57 Dose: 300 mls/hr Sodium Chloride (Normal Saline) 500 mls @ 500 mls/hr IV STAT ONE Stop: 02/15/19 17:47 Last Admin: 02/15/19 17:41 Dose: 500 mls/hr Ceftriaxone Sodium/Dextrose 1 (gm/ Premix) 50 mls @ 100 mls/hr IV ONETIME ONE Stop: 02/15/19 17:29 Last Admin: 02/15/19 17:35 Dose: Not Given Thiamine HCl 100 mg/ Sodium (Chloride) 101 mls @ 202 mls/hr IV DAILY ONE Stop: 02/15/19 17:59 Last Admin: 02/15/19 17:35 Dose: Not Given Ceftriaxone Sodium/Dextrose 2 (gm/ Premix) 50 mls @ 100 mls/hr IV Q24H [facility] Last Admin: 02/17/19 15:18 Dose: 100 mls/hr Thiamine HCl 100 mg/ Sodium (Chloride) 101 mls @ 202 mls/hr IV DAILY [facility] Last Admin: 02/18/19 09:58 Dose: Not Given Magnesium Sulfate 2 gm/ Premix 50 mls @ 25 mls/hr IV ONETIME ONE Stop: 02/15/19 20:00 Last Admin: 02/15/19 20:04 Dose: Not Given Magnesium Sulfate 2 gm/ Premix 50 mls @ 25 mls/hr IV ONETIME ONE Stop: 02/16/19 00:59 Last Admin: 02/15/19 22:07 Dose: 25 mls/hr Albumin Human (Buminate 5%) 250 mls @ 125 mls/hr IV ONETIME ONE Stop: 02/16/19 12:15 Last Admin: 02/16/19 11:20 Dose: Not Given Albumin Human (Flexbumin 25%) 12.5 gm in 50 mls @ 100 mls/hr IV Q1H [facility] Stop: 02/16/19 11:59 Last Admin: 02/16/19 13:08 Dose: 100 mls/hr Thiamine HCl 100 mg/ Sodium (Chloride) 101 mls @ 202 mls/hr IV Q24H [facility] Last Admin: 02/18/19 10:04 Dose: 202 mls/hr Iopamidol (Isovue Multipack-370 (76%)) 100 ml IVPUSH ONETIME STA Stop: 02/15/19 11:39 Last Admin: 02/15/19 12:11 Dose: 100 ml Lactulose (Chronulac) 10 gm PO DAILY [facility] Last Admin: 02/18/19 08:56 Dose: 10 gm Lidocaine HCl (Xylocaine-Mpf 1%) 5 ml INJECT ONETIME ONE Stop: 02/15/19 13:30 Last Admin: 02/15/19 13:38 Dose: 5 ml Lorazepam (Ativan) 2 mg IVPUSH ONETIME ONE Stop: 02/15/19 10:00 Last Admin: 02/15/19 10:15 Dose: 2 mg Lorazepam (Ativan) 0 mg IVPUSH ONETIME ONE; Protocol Stop: 02/15/19 16:48 Last Admin: 02/15/19 17:35 Dose: Not Given Lorazepam (Ativan) 1 mg IVPUSH .Q5MIN PRN PRN Reason: Seizures Lorazepam (Ativan) 0 mg IVPUSH SEECOMMENT PRN; Protocol PRN Reason: CWAT Lorazepam (Ativan) 0 mg IVPUSH Q4H PRN; Protocol PRN Reason: Other Morphine Sulfate (Morphine) 1 mg IVPUSH Q4H PRN PRN Reason: Pain Last Admin: 02/16/19 13:15 Dose: 1 mg Morphine Sulfate (Morphine) 1 mg IVPUSH Q2H PRN PRN Reason: Pain Last Admin: 02/16/19 16:20 Dose: 1 mg Multivitamins/Minerals/Vitamin C (Tab-A-Darien) 1 tab PO DAILY [facility] Last Admin: 02/18/19 08:57 Dose: 1 tab Nicotine (Habitrol) 21 mg TRDERM ONETIME ONE Stop: 02/15/19 15:09 Last Admin: 02/15/19 15:12 Dose: 21 mg Ondansetron HCl (Zofran) 4 mg IVPUSH ONETIME ONE Stop: 02/15/19 10:00 Last Admin: 02/15/19 10:15 Dose: 4 mg Ondansetron HCl (Zofran Odt) 4 mg PO Q6H PRN PRN Reason: Nausea/Vomiting Last Admin: 02/16/19 13:11 Dose: 4 mg Potassium Chloride (Potassium Chloride) 40 meq PO ONETIME ONE Stop: 02/15/19 11:43 Last Admin: 02/15/19 12:35 Dose: 40 meq Potassium Chloride (Klor-Con M20) 40 meq PO ONETIME ONE Stop: 02/16/19 07:52 Last Admin: 02/16/19 08:29 Dose: 40 meq Prednisone (Prednisone) 40 mg PO WITHBREAKFAST [facility] Last Admin: 02/18/19 08:57 Dose: 40 mg Fluticasone/Salmeterol (Advair Diskus 100-50) 0 puff INH BID [facility] Last Admin: 02/18/19 09:32 Dose: 1 inhalation Simethicone (Simethicone) 80 mg PO Q4H PRN PRN Reason: bloating Last Admin: 02/18/19 06:39 Dose: 80 mg Spironolactone (Aldactone) 50 mg PO DAILY [facility] - Plan Plan:: I have seen and evaluated the patient and agree with the residents note unless specified in my note
[2019-02-17] MEDS: predniSONE 20 MG Tab PO SCH (11:24)
[2019-02-17] MEDS: cefTRIAXone 2 GM in Premix Bag 1 BAG IV SCH (15:18)
[2019-02-17] MEDS ORDERED: Furosemide 20 MG/2 ML VIAL IVPUSH ONE (19:28)
[2019-02-17] MEDS: Albuterol/Ipratropium 3.0-0.5 MG/3 ML Neb Soln NEB SCH (22:09)
[2019-02-18] MEDS: Heparin Sodium 5,000 Units/ML Vial SUBCUT SCH ×2 (01:27→08:58)
[2019-02-18] MEDS: Albuterol/Ipratropium 3.0-0.5 MG/3 ML Neb Soln NEB SCH ×3 (01:28→09:32)
[2019-02-18] MEDS: Simethicone 80 MG Tab.Chew PO PRN ×2 (01:29→06:39)
[2019-02-18 06:17] LABS: BLOOD UREA NITROGEN,BUN 7 mg/dL (7.0-18.0); CARBON DIOXIDE,CO2 21.3 mmol/L (21.0-32.0); CHLORIDE,CL 109 mmol/L (98-107); GLUCOSE RANDOM 136 mg/dL (74-106); POTASSIUM,K 4.2 mmol/L (3.5-5.1); SODIUM,NA 141 mmol/L (136-148)
[2019-02-18] MEDS: Lactulose Soln 10 GM/15 ML 15 ML UD Cup PO SCH (08:56)
[2019-02-18] MEDS: Pantoprazole 40 MG in Sodium Chloride 0.9% 10 ML IV SCH (08:57)
[2019-02-18] MEDS: predniSONE 20 MG Tab PO SCH (08:57)
[2019-02-18] MEDS: Folic Acid 1 MG Tab PO SCH (08:57)
[2019-02-18] MEDS: Multivitamin Tab PO SCH (08:57)
[2019-02-18] MEDS: Fluticasone/Salmeterol 100-50 MCG Inhalation Powder 14/Diskus INH SCH (09:32)
--- NOTE | 2019-02-18 09:41 | PCM.PN ---
<Francia Quinones - Last Filed: 02/18/19 09:41> - General Info Date of Service: 02/18/19 Subjective Update: Bedside: states breathing has improved; just complaining of feeling tired from lack of sleep. denies any acute pain Functional Status: Reports: Pain Controlled - Review of Systems General: Denies: Fever, Chills HEENT: Reports: No Symptoms. Denies: Headaches, Post Nasal Drip Pulmonary: Reports: Cough, Sputum. Denies: Shortness of Breath, Pleuritic Chest Pain, Wheezing Cardiovascular: Denies: Chest Pain, Palpitations, Dyspnea on Exertion, Edema Gastrointestinal: Reports: Abdominal Pain. Denies: Diarrhea, Nausea Genitourinary: Reports: No Symptoms Musculoskeletal: Reports: No Symptoms Neurological: Denies: Confusion, Dizziness, Headache - Patient Data Vitals - Most Recent: Last Vital Signs Temp 97.0 F 02/18/19 07:51 Pulse 86 02/18/19 07:51 Resp 22 H 02/18/19 07:51 BP 110/79 02/18/19 07:51 Pulse Ox 91 L 02/18/19 07:51 Weight - Most Recent: 85 kg I&O - Last 24 Hours: Intake & Output 02/17/19 02/18/19 02/18/19 22:59 06:59 14:59 Intake Total 150 660 Output Total 400 Balance 150 260 Lab Results Last 24 Hours: Laboratory Results - last 24 hr 02/18/19 02/18/19 Range/Units 04:53 04:53 WBC 9.94 (4.0-11.0) K/uL RBC 4.07 L (4.50-5.90) M/uL Hgb 13.5 (13.0-17.0) g/dL Hct 39.8 (38.0-50.0) % MCV 97.8 (80.0-98.0) fL MCH 33.2 H (27.0-32.0) pg MCHC 33.9 (31.0-37.0) g/dL RDW Std Deviation 58.8 (28.0-62.0) fl RDW Coeff of Manolo 16 H (11.0-15.0) % Plt Count 141 L (150-400) K/uL MPV 10.10 (7.40-12.00) fL Neut % (Auto) 86.8 H (48.0-80.0) % Lymph % (Auto) 5.7 L (16.0-40.0) % Bath % (Auto) 7.4 (0.0-15.0) % Eos % (Auto) 0.0 (0.0-7.0) % Baso % (Auto) 0.1 (0.0-1.5) % Neut # (Auto) 8.6 H (1.4-5.7) K/uL Lymph # (Auto) 0.6 (0.6-2.4) K/uL Bath # (Auto) 0.7 (0.0-0.8) K/uL Eos # (Auto) 0.0 (0.0-0.7) K/uL Baso # (Auto) 0.0 (0.0-0.1) K/uL Nucleated RBC % 0.0 /100WBC Nucleated RBCs # 0 K/uL Sodium 141 (136-148) mmol/L Potassium 4.2 (3.5-5.1) mmol/L Chloride 109 H (98-107) mmol/L Carbon Dioxide 21.3 (21.0-32.0) mmol/L BUN 7 (7.0-18.0) mg/dL Creatinine 1.0 (0.8-1.3) mg/dL Est Cr Clr Drug Dosing 77.06 mL/min Estimated GFR (MDRD) > 60.0 ml/min Glucose 136 H (74-106) mg/dL Calcium 7.5 L (8.5-10.1) mg/dL Total Bilirubin 0.7 (0.2-1.0) mg/dL AST 49 H (15-37) IU/L ALT 23 (14-63) IU/L Alkaline Phosphatase 118 H (46-116) U/L Total Protein 7.0 (6.4-8.2) g/dL Albumin 2.2 L (3.4-5.0) g/dL Globulin 4.8 H (2.6-4.0) g/dL Albumin/Globulin Ratio 0.5 L (0.9-1.6) Jesús Results Last 24 Hours: Microbiology 02/15/19 14:28 Gram Stain - Final Ascities Fluid Body Fluid Culture - Final NO GROWTH AFTER 3 DAYS 02/15/19 17:40 Aerobic Blood Culture - Preliminary Blood - Venous - Lab Draw NO GROWTH AFTER 2 DAYS Anaerobic Blood Culture - Preliminary NO GROWTH AFTER 2 DAYS 02/15/19 17:25 Aerobic Blood Culture - Preliminary Blood - Venous NO GROWTH AFTER 2 DAYS Anaerobic Blood Culture - Preliminary NO GROWTH AFTER 2 DAYS Med Orders - Current: Current Medications Albuterol/Ipratropium (Duoneb 3.0-0.5 Mg/3 Ml) 3 ml NEB Q4HRRT [facility] Last Admin: 02/18/19 09:32 Dose: 3 ml Folic Acid (Folic Acid) 1 mg PO DAILY [facility] Last Admin: 02/18/19 08:57 Dose: 1 mg Heparin Sodium (Porcine) (Heparin Sodium) 5,000 units SUBCUT Q8H [facility] Last Admin: 02/18/19 08:58 Dose: 5,000 units Pantoprazole Sodium 40 mg/ (Sodium Chloride) 10 mls @ 300 mls/hr IV DAILY [facility] Last Admin: 02/18/19 08:57 Dose: 300 mls/hr Ceftriaxone Sodium/Dextrose 2 (gm/ Premix) 50 mls @ 100 mls/hr IV Q24H [facility] Last Admin: 02/17/19 15:18 Dose: 100 mls/hr Thiamine HCl 100 mg/ Sodium (Chloride) 101 mls @ 202 mls/hr IV Q24H [facility] Lactulose (Chronulac) 10 gm PO DAILY [facility] Last Admin: 02/18/19 08:56 Dose: 10 gm Lorazepam (Ativan) 1 mg IVPUSH .Q5MIN PRN PRN Reason: Seizures Lorazepam (Ativan) 0 mg IVPUSH Q4H PRN; Protocol PRN Reason: Other Morphine Sulfate (Morphine) 1 mg IVPUSH Q2H PRN PRN Reason: Pain Last Admin: 02/16/19 16:20 Dose: 1 mg Multivitamins/Minerals/Vitamin C (Tab-A-Darien) 1 tab PO DAILY [facility] Last Admin: 02/18/19 08:57 Dose: 1 tab Ondansetron HCl (Zofran Odt) 4 mg PO Q6H PRN PRN Reason: Nausea/Vomiting Last Admin: 02/16/19 13:11 Dose: 4 mg Prednisone (Prednisone) 40 mg PO WITHBREAKFAST [facility] Last Admin: 02/18/19 08:57 Dose: 40 mg Fluticasone/Salmeterol (Advair Diskus 100-50) 0 puff INH BID ONIEL Last Admin: 02/18/19 09:32 Dose: 1 inhalation Simethicone (Simethicone) 80 mg PO Q4H PRN PRN Reason: bloating Last Admin: 02/18/19 06:39 Dose: 80 mg Discontinued Medications Albuterol/Ipratropium (Duoneb 3.0-0.5 Mg/3 Ml) 3 ml NEB Q4HRRT PRN PRN Reason: Shortness of Breath Last Admin: 02/17/19 09:02 Dose: 3 ml Furosemide (Lasix) 40 mg IVPUSH NOW ONE Stop: 02/16/19 12:41 Last Admin: 02/16/19 13:14 Dose: 40 mg Furosemide (Lasix) 20 mg IVPUSH NOW ONE Stop: 02/17/19 19:29 Last Admin: 02/17/19 20:36 Dose: 20 mg Heparin Sodium (Porcine) (Heparin Sodium) 5,000 units IVPUSH Q8H [facility] Sodium Chloride (Normal Saline) 1,000 mls @ 999 mls/hr IV .BOLUS ONE Stop: 02/15/19 10:59 Last Admin: 02/15/19 10:15 Dose: 999 mls/hr Thiamine HCl 100 mg/ Sodium (Chloride) 101 mls @ 202 mls/hr IV ONETIME ONE Stop: 02/15/19 10:00 Last Admin: 02/15/19 10:25 Dose: 202 mls/hr Potassium Chloride/Dextrose/Sod Cl (D5 Ns With 20 Meq Kcl) 1,000 mls @ 125 mls/ hr IV ASDIRECTED [facility] Last Admin: 02/17/19 02:32 Dose: 125 mls/hr Ceftriaxone Sodium/Dextrose 1 (gm/ Premix) 50 mls @ 100 mls/hr IV ONETIME ONE Stop: 02/15/19 15:54 Last Admin: 02/15/19 15:32 Dose: 100 mls/hr Sodium Chloride (Normal Saline) 500 mls @ 500 mls/hr IV STAT ONE Stop: 02/15/19 17:47 Last Admin: 02/15/19 17:41 Dose: 500 mls/hr Ceftriaxone Sodium/Dextrose 1 (gm/ Premix) 50 mls @ 100 mls/hr IV ONETIME ONE Stop: 02/15/19 17:29 Last Admin: 02/15/19 17:35 Dose: Not Given Thiamine HCl 100 mg/ Sodium (Chloride) 101 mls @ 202 mls/hr IV DAILY ONE Stop: 02/15/19 17:59 Last Admin: 02/15/19 17:35 Dose: Not Given Thiamine HCl 100 mg/ Sodium (Chloride) 101 mls @ 202 mls/hr IV DAILY [facility] Last Admin: 02/17/19 08:19 Dose: 202 mls/hr Magnesium Sulfate 2 gm/ Premix 50 mls @ 25 mls/hr IV ONETIME ONE Stop: 02/15/19 20:00 Last Admin: 02/15/19 20:04 Dose: Not Given Magnesium Sulfate 2 gm/ Premix 50 mls @ 25 mls/hr IV ONETIME ONE Stop: 02/16/19 00:59 Last Admin: 02/15/19 22:07 Dose: 25 mls/hr Albumin Human (Buminate 5%) 250 mls @ 125 mls/hr IV ONETIME ONE Stop: 02/16/19 12:15 Last Admin: 02/16/19 11:20 Dose: Not Given Albumin Human (Flexbumin 25%) 12.5 gm in 50 mls @ 100 mls/hr IV Q1H ONIEL Stop: 02/16/19 11:59 Last Admin: 02/16/19 13:08 Dose: 100 mls/hr Iopamidol (Isovue Multipack-370 (76%)) 100 ml IVPUSH ONETIME STA Stop: 02/15/19 11:39 Last Admin: 02/15/19 12:11 Dose: 100 ml Lidocaine HCl (Xylocaine-Mpf 1%) 5 ml INJECT ONETIME ONE Stop: 02/15/19 13:30 Last Admin: 02/15/19 13:38 Dose: 5 ml Lorazepam (Ativan) 2 mg IVPUSH ONETIME ONE Stop: 02/15/19 10:00 Last Admin: 02/15/19 10:15 Dose: 2 mg Lorazepam (Ativan) 0 mg IVPUSH ONETIME ONE; Protocol Stop: 02/15/19 16:48 Last Admin: 02/15/19 17:35 Dose: Not Given Lorazepam (Ativan) 0 mg IVPUSH SEECOMMENT PRN; Protocol PRN Reason: CWAT Morphine Sulfate (Morphine) 1 mg IVPUSH Q4H PRN PRN Reason: Pain Last Admin: 02/16/19 13:15 Dose: 1 mg Nicotine (Habitrol) 21 mg TRDERM ONETIME ONE Stop: 02/15/19 15:09 Last Admin: 02/15/19 15:12 Dose: 21 mg Ondansetron HCl (Zofran) 4 mg IVPUSH ONETIME ONE Stop: 02/15/19 10:00 Last Admin: 02/15/19 10:15 Dose: 4 mg Potassium Chloride (Potassium Chloride) 40 meq PO ONETIME ONE Stop: 02/15/19 11:43 Last Admin: 02/15/19 12:35 Dose: 40 meq Potassium Chloride (Klor-Con M20) 40 meq PO ONETIME ONE Stop: 02/16/19 07:52 Last Admin: 02/16/19 08:29 Dose: 40 meq - Exam Quality Assessment: Supplemental Oxygen General: Alert, Oriented, Cooperative, No Acute Distress HEENT: EOMI, Mucous Membr. Moist/[place] Neck: Supple Lungs: Other (prolonged expiratory wheeze, minimal rhonchi ) Cardiovascular: Regular Rate, Regular Rhythm GI/Abdominal Exam: Other (distended abdomen; tense; unchangd from myday ) Extremities: Non-Tender, No Pedal Edema Skin: Warm Neurological: No New Focal Deficit Psy/Mental Status: Alert, Normal Affect, Normal Mood Sepsis Event Note - Evaluation Sepsis Screening Result: No Definite Risk - Focused Exam Vital Signs: Vital Signs Temp Pulse Resp BP Pulse Ox Pulse Ox 02/18/19 07:51 97.0 F 86 22 H 110/79 91 L 02/18/19 04:00 98.4 F 100 16 108/66 94 L 02/17/19 23:54 97.2 F 105 H 20 103/61 94 L 94 L Date Exam was Performed: 02/18/19 Time Exam was Performed: 09:41 - Problem List Review Problem List Initiated/Reviewed/Updated: Yes - My Orders Last 24 Hours: My Active Orders 02/17/19 09:00 Multivitamins [Tab-A-Darien] 1 tab PO DAILY 02/17/19 22:00 Albuterol/Ipratropium [DuoNeb 3.0-0.5 MG/3 ML] 3 ml NEB Q4HRRT 02/18/19 08:22 INR,PT,PROTHROMBIN TIME [COAG] Routine 02/18/19 10:30 Thiamine [Vitamin B-1] 100 mg Sodium Chloride 0.9% [Normal Saline] 100 ml IV Q24H - Plan Plan:: Assessment 1. Abdominal ascites with concern for SBP with suspected cirrhosis 2. Alcohol cirrhosis 3. Transaminitis 4. Hypokalemia:repleted 5. Leukocytosis. 6. Past medical history: Hypertension, chronic alcohol abuse, tobacco abuse, 7. Cough/wheeze possible COPD exacerbation Plan Admit to inpatient. Full code. DVT prophylaxis; heparin every 8 subcu. GI prophylaxis; IV PPI 40 daily. Up ad joe. diet: Regular. 1. Ascites with concerns about SBP; cell count consistent with SBP awaiting body cultures: Continue on ceftriaxone 2 g daily x5 days. CT abdomen consistent with moderate ascites. Chest x-ray: Negative for pleural effusions versus infiltrates. Volume down: We will give another 500 cc bolus right now. Awaiting cultures. Concerns for alcoholic cardiomyopathy: Echo ordered. reassess this afternoon for need for Lasix if necessary Concerns for infectious process: UA with reflex ordered. Lactulose 10 mg daily ordered:continue [place] MELD score UTI: on Ceftriaxone; will adjust abx if necessary Cough/wheeze: started on Advair BID, prednisone 40 daily, Duo nebs continued. PT ordered to help prevent deconditioning to help w/ strength today; appreciate evaluations ETOH abuse: CIWAA/Ativan protocol Duo-nebs ordered PRN: concern for COPD pt. understood plan. <Anup Mcgowan - Last Filed: 02/22/19 20:38> - Patient Data Vitals - Most Recent: Last Vital Signs Temp 37.2 C 02/18/19 11:52 Pulse 90 02/18/19 11:52 Resp 18 02/18/19 11:52 BP 110/78 02/18/19 11:52 Pulse Ox 93 L 02/18/19 11:52 Med Orders - Current: Current Medications Discontinued Medications Albuterol/Ipratropium (Duoneb 3.0-0.5 Mg/3 Ml) 3 ml NEB Q4HRRT PRN PRN Reason: Shortness of Breath Last Admin: 02/17/19 09:02 Dose: 3 ml Albuterol/Ipratropium (Duoneb 3.0-0.5 Mg/3 Ml) 3 ml NEB Q4HRRT [facility] Last Admin: 02/18/19 09:32 Dose: 3 ml Folic Acid (Folic Acid) 1 mg PO DAILY [facility] Last Admin: 02/18/19 08:57 Dose: 1 mg Furosemide (Lasix) 40 mg IVPUSH NOW ONE Stop: 02/16/19 12:41 Last Admin: 02/16/19 13:14 Dose: 40 mg Furosemide (Lasix) 20 mg IVPUSH NOW ONE Stop: 02/17/19 19:29 Last Admin: 02/17/19 20:36 Dose: 20 mg Furosemide (Lasix) 20 mg IVPUSH NOW ONE Stop: 02/18/19 10:29 Last Admin: 02/18/19 11:16 Dose: 20 mg Heparin Sodium (Porcine) (Heparin Sodium) 5,000 units IVPUSH Q8H ONIEL Heparin Sodium (Porcine) (Heparin Sodium) 5,000 units SUBCUT Q8H [facility] Last Admin: 02/18/19 08:58 Dose: 5,000 units Sodium Chloride (Normal Saline) 1,000 mls @ 999 mls/hr IV .BOLUS ONE Stop: 02/15/19 10:59 Last Admin: 02/15/19 10:15 Dose: 999 mls/hr Thiamine HCl 100 mg/ Sodium (Chloride) 101 mls @ 202 mls/hr IV ONETIME ONE Stop: 02/15/19 10:00 Last Admin: 02/15/19 10:25 Dose: 202 mls/hr Potassium Chloride/Dextrose/Sod Cl (D5 Ns With 20 Meq Kcl) 1,000 mls @ 125 mls/ hr IV ASDIRECTED [facility] Last Admin: 02/17/19 02:32 Dose: 125 mls/hr Ceftriaxone Sodium/Dextrose 1 (gm/ Premix) 50 mls @ 100 mls/hr IV ONETIME ONE Stop: 02/15/19 15:54 Last Admin: 02/15/19 15:32 Dose: 100 mls/hr Pantoprazole Sodium 40 mg/ (Sodium Chloride) 10 mls @ 300 mls/hr IV DAILY [facility] Last Admin: 02/18/19 08:57 Dose: 300 mls/hr Sodium Chloride (Normal Saline) 500 mls @ 500 mls/hr IV STAT ONE Stop: 02/15/19 17:47 Last Admin: 02/15/19 17:41 Dose: 500 mls/hr Ceftriaxone Sodium/Dextrose 1 (gm/ Premix) 50 mls @ 100 mls/hr IV ONETIME ONE Stop: 02/15/19 17:29 Last Admin: 02/15/19 17:35 Dose: Not Given Thiamine HCl 100 mg/ Sodium (Chloride) 101 mls @ 202 mls/hr IV DAILY ONE Stop: 02/15/19 17:59 Last Admin: 02/15/19 17:35 Dose: Not Given Ceftriaxone Sodium/Dextrose 2 (gm/ Premix) 50 mls @ 100 mls/hr IV Q24H [facility] Last Admin: 02/17/19 15:18 Dose: 100 mls/hr Thiamine HCl 100 mg/ Sodium (Chloride) 101 mls @ 202 mls/hr IV DAILY [facility] Last Admin: 02/18/19 09:58 Dose: Not Given Magnesium Sulfate 2 gm/ Premix 50 mls @ 25 mls/hr IV ONETIME ONE Stop: 02/15/19 20:00 Last Admin: 02/15/19 20:04 Dose: Not Given Magnesium Sulfate 2 gm/ Premix 50 mls @ 25 mls/hr IV ONETIME ONE Stop: 02/16/19 00:59 Last Admin: 02/15/19 22:07 Dose: 25 mls/hr Albumin Human (Buminate 5%) 250 mls @ 125 mls/hr IV ONETIME ONE Stop: 02/16/19 12:15 Last Admin: 02/16/19 11:20 Dose: Not Given Albumin Human (Flexbumin 25%) 12.5 gm in 50 mls @ 100 mls/hr IV Q1H ONIEL Stop: 02/16/19 11:59 Last Admin: 02/16/19 13:08 Dose: 100 mls/hr Thiamine HCl 100 mg/ Sodium (Chloride) 101 mls @ 202 mls/hr IV Q24H [facility] Last Admin: 02/18/19 10:04 Dose: 202 mls/hr Iopamidol (Isovue Multipack-370 (76%)) 100 ml IVPUSH ONETIME STA Stop: 02/15/19 11:39 Last Admin: 02/15/19 12:11 Dose: 100 ml Lactulose (Chronulac) 10 gm PO DAILY [facility] Last Admin: 02/18/19 08:56 Dose: 10 gm Lidocaine HCl (Xylocaine-Mpf 1%) 5 ml INJECT ONETIME ONE Stop: 02/15/19 13:30 Last Admin: 02/15/19 13:38 Dose: 5 ml Lorazepam (Ativan) 2 mg IVPUSH ONETIME ONE Stop: 02/15/19 10:00 Last Admin: 02/15/19 10:15 Dose: 2 mg Lorazepam (Ativan) 0 mg IVPUSH ONETIME ONE; Protocol Stop: 02/15/19 16:48 Last Admin: 02/15/19 17:35 Dose: Not Given Lorazepam (Ativan) 1 mg IVPUSH .Q5MIN PRN PRN Reason: Seizures Lorazepam (Ativan) 0 mg IVPUSH SEECOMMENT PRN; Protocol PRN Reason: CWAT Lorazepam (Ativan) 0 mg IVPUSH Q4H PRN; Protocol PRN Reason: Other Morphine Sulfate (Morphine) 1 mg IVPUSH Q4H PRN PRN Reason: Pain Last Admin: 02/16/19 13:15 Dose: 1 mg Morphine Sulfate (Morphine) 1 mg IVPUSH Q2H PRN PRN Reason: Pain Last Admin: 02/16/19 16:20 Dose: 1 mg Multivitamins/Minerals/Vitamin C (Tab-A-Darien) 1 tab PO DAILY [facility] Last Admin: 02/18/19 08:57 Dose: 1 tab Nicotine (Habitrol) 21 mg TRDERM ONETIME ONE Stop: 02/15/19 15:09 Last Admin: 02/15/19 15:12 Dose: 21 mg Ondansetron HCl (Zofran) 4 mg IVPUSH ONETIME ONE Stop: 02/15/19 10:00 Last Admin: 02/15/19 10:15 Dose: 4 mg Ondansetron HCl (Zofran Odt) 4 mg PO Q6H PRN PRN Reason: Nausea/Vomiting Last Admin: 02/16/19 13:11 Dose: 4 mg Potassium Chloride (Potassium Chloride) 40 meq PO ONETIME ONE Stop: 02/15/19 11:43 Last Admin: 02/15/19 12:35 Dose: 40 meq Potassium Chloride (Klor-Con M20) 40 meq PO ONETIME ONE Stop: 02/16/19 07:52 Last Admin: 02/16/19 08:29 Dose: 40 meq Prednisone (Prednisone) 40 mg PO WITHBREAKFAST [facility] Last Admin: 02/18/19 08:57 Dose: 40 mg Fluticasone/Salmeterol (Advair Diskus 100-50) 0 puff INH BID ONIEL Last Admin: 02/18/19 09:32 Dose: 1 inhalation Simethicone (Simethicone) 80 mg PO Q4H PRN PRN Reason: bloating Last Admin: 02/18/19 06:39 Dose: 80 mg Spironolactone (Aldactone) 50 mg PO DAILY ONIEL - Plan Plan:: I have seen and evaluated the patient and agree with the residents note unless specified in my note
[2019-02-18] MEDS: Thiamine 100 MG in Sodium Chloride 0.9% 100 ML IV SCH (09:58)
[2019-02-18] MEDS ORDERED: Furosemide 20 MG/2 ML VIAL IVPUSH ONE (10:28)
[2019-02-18] MEDS ORDERED: Thiamine 100 MG in Sodium Chloride 0.9% 100 ML IV SCH (10:30)
[2019-02-18 11:53] VITALS: BP 110/78; PULSE 90
--- NOTE | 2019-02-18 12:21 | PCM.DCSUM1 ---
<Francia Quinones - Last Filed: 02/18/19 12:20> Discharge Summary - Discharge Data Discharge Disposition: DC/Tfer to Acute Hospital 02 Condition: Stable - Referral to Home Health Primary Care Physician: Wesley Arroyo MD - Patient Summary/Data Consults: Consultations 02/17/19 10:48 Consult to Physical Therapy [PT Evaluation and Treatment] [CONS] Routine - Patient Instructions Other/Special Instructions: NPO for possible paracentesis today ; will be evaluated in [facility] - Discharge Plan Home Medications: Home Meds Albuterol [Ventolin HFA] 1 puff INH Q2H PRN #1 puff 01/27/18 [Rx] Mirtazapine 45 mg PO BEDTIME 02/15/19 [History] amLODIPine [Norvasc] 10 mg PO DAILY 02/15/19 [History] Albuterol/Ipratropium [DuoNeb 3.0-0.5 MG/3 ML] 3 ml NEB Q4HRRT neb 02/18/19 [Rx ] Fluticasone/Salmeterol [Advair 100-50] 0 puff INH BID diskus 02/18/19 [Rx] Folic Acid 1 mg PO DAILY tablet 02/18/19 [Rx] Lactulose [Chronulac] 10 gm PO DAILY cup 02/18/19 [Rx] Multivitamins [Tab-A-Darien] 1 tab PO DAILY tablet 02/18/19 [Rx] Ondansetron [Zofran ODT] 4 mg PO Q6H PRN tab.dis 02/18/19 [Rx] Simethicone 80 mg PO Q4H PRN tab.chew 02/18/19 [Rx] Spironolactone [Aldactone] 50 mg PO DAILY tablet 02/18/19 [Rx] Thiamine [Vitamin B-1] 100 mg IV Q24H mdv 02/18/19 [Rx] cefTRIAXone [Rocephin in Dextrose,Iso-Osm 2 GM/50 ML] 2 gm IV Q24H bag [Rx] predniSONE 40 mg PO WITHBREAKFAST tablet 02/18/19 [Rx] Oxygen Therapy Mode: Nasal Cannula Oxygen Flow Rate (L/min): 3 Patient Handouts: Peritonitis Referrals: Wesley Arroyo MD [Primary Care Provider] - 03/02/19 3:45 pm - Patient Data Vitals - Most Recent: Last Vital Signs Temp 99.0 F 02/18/19 11:52 Pulse 90 02/18/19 11:52 Resp 18 02/18/19 11:52 BP 110/78 02/18/19 11:52 Pulse Ox 93 L 02/18/19 11:52 Weight - Most Recent: 85 kg I&O - Last 24 hours: Intake & Output 02/17/19 02/18/19 02/18/19 22:59 06:59 14:59 Intake Total 150 660 101 Output Total 400 Balance 150 260 101 Lab Results - Last 24 hrs: Laboratory Results - last 24 hr 02/18/19 02/18/19 02/18/19 Range/Units 04:53 04:53 08:22 WBC 9.94 (4.0-11.0) K/uL RBC 4.07 L (4.50-5.90) M/uL Hgb 13.5 (13.0-17.0) g/dL Hct 39.8 (38.0-50.0) % MCV 97.8 (80.0-98.0) fL MCH 33.2 H (27.0-32.0) pg MCHC 33.9 (31.0-37.0) g/dL RDW Std Deviation 58.8 (28.0-62.0) fl RDW Coeff of Manolo 16 H (11.0-15.0) % Plt Count 141 L (150-400) K/uL MPV 10.10 (7.40-12.00) fL Neut % (Auto) 86.8 H (48.0-80.0) % Lymph % (Auto) 5.7 L (16.0-40.0) % [place] % (Auto) 7.4 (0.0-15.0) % Eos % (Auto) 0.0 (0.0-7.0) % Baso % (Auto) 0.1 (0.0-1.5) % Neut # (Auto) 8.6 H (1.4-5.7) K/uL Lymph # (Auto) 0.6 (0.6-2.4) K/uL [place] # (Auto) 0.7 (0.0-0.8) K/uL Eos # (Auto) 0.0 (0.0-0.7) K/uL Baso # (Auto) 0.0 (0.0-0.1) K/uL Nucleated RBC % 0.0 /100WBC Nucleated RBCs # 0 K/uL INR 1.31 Sodium 141 (136-148) mmol/L Potassium 4.2 (3.5-5.1) mmol/L Chloride 109 H (98-107) mmol/L Carbon Dioxide 21.3 (21.0-32.0) mmol/L BUN 7 (7.0-18.0) mg/dL Creatinine 1.0 (0.8-1.3) mg/dL Est Cr Clr Drug Dosing 77.06 mL/min Estimated GFR (MDRD) > 60.0 ml/min Glucose 136 H (74-106) mg/dL Calcium 7.5 L (8.5-10.1) mg/dL Total Bilirubin 0.7 (0.2-1.0) mg/dL AST 49 H (15-37) IU/L ALT 23 (14-63) IU/L Alkaline Phosphatase 118 H (46-116) U/L Total Protein 7.0 (6.4-8.2) g/dL Albumin 2.2 L (3.4-5.0) g/dL Globulin 4.8 H (2.6-4.0) g/dL Albumin/Globulin Ratio 0.5 L (0.9-1.6) YASSINE Results - Last 24 hrs: Microbiology 02/15/19 14:28 Gram Stain - Final Ascities Fluid Body Fluid Culture - Final NO GROWTH AFTER 3 DAYS 02/15/19 17:40 Aerobic Blood Culture - Preliminary Blood - Venous - Lab Draw NO GROWTH AFTER 2 DAYS Anaerobic Blood Culture - Preliminary NO GROWTH AFTER 2 DAYS 02/15/19 17:25 Aerobic Blood Culture - Preliminary Blood - Venous NO GROWTH AFTER 2 DAYS Anaerobic Blood Culture - Preliminary NO GROWTH AFTER 2 DAYS Med Orders - Current: Current Medications Albuterol/Ipratropium (Duoneb 3.0-0.5 Mg/3 Ml) 3 ml NEB Q4HRRT [facility] Last Admin: 02/18/19 09:32 Dose: 3 ml Folic Acid (Folic Acid) 1 mg PO DAILY [facility] Last Admin: 02/18/19 08:57 Dose: 1 mg Heparin Sodium (Porcine) (Heparin Sodium) 5,000 units SUBCUT Q8H [facility] Last Admin: 02/18/19 08:58 Dose: 5,000 units Pantoprazole Sodium 40 mg/ (Sodium Chloride) 10 mls @ 300 mls/hr IV DAILY [facility] Last Admin: 02/18/19 08:57 Dose: 300 mls/hr Ceftriaxone Sodium/Dextrose 2 (gm/ Premix) 50 mls @ 100 mls/hr IV Q24H [facility] Last Admin: 02/17/19 15:18 Dose: 100 mls/hr Thiamine HCl 100 mg/ Sodium (Chloride) 101 mls @ 202 mls/hr IV Q24H [facility] Last Admin: 02/18/19 10:04 Dose: 202 mls/hr Lactulose (Chronulac) 10 gm PO DAILY [facility] Last Admin: 02/18/19 08:56 Dose: 10 gm Lorazepam (Ativan) 1 mg IVPUSH .Q5MIN PRN PRN Reason: Seizures Lorazepam (Ativan) 0 mg IVPUSH Q4H PRN; Protocol PRN Reason: Other Morphine Sulfate (Morphine) 1 mg IVPUSH Q2H PRN PRN Reason: Pain Last Admin: 02/16/19 16:20 Dose: 1 mg Multivitamins/Minerals/Vitamin C (Tab-A-Darien) 1 tab PO DAILY [facility] Last Admin: 02/18/19 08:57 Dose: 1 tab Ondansetron HCl (Zofran Odt) 4 mg PO Q6H PRN PRN Reason: Nausea/Vomiting Last Admin: 02/16/19 13:11 Dose: 4 mg Prednisone (Prednisone) 40 mg PO WITHBREAKFAST [facility] Last Admin: 02/18/19 08:57 Dose: 40 mg Fluticasone/Salmeterol (Advair Diskus 100-50) 0 puff INH BID [facility] Last Admin: 02/18/19 09:32 Dose: 1 inhalation Simethicone (Simethicone) 80 mg PO Q4H PRN PRN Reason: bloating Last Admin: 02/18/19 06:39 Dose: 80 mg Spironolactone (Aldactone) 50 mg PO DAILY [facility] Discontinued Medications Albuterol/Ipratropium (Duoneb 3.0-0.5 Mg/3 Ml) 3 ml NEB Q4HRRT PRN PRN Reason: Shortness of Breath Last Admin: 02/17/19 09:02 Dose: 3 ml Furosemide (Lasix) 40 mg IVPUSH NOW ONE Stop: 02/16/19 12:41 Last Admin: 02/16/19 13:14 Dose: 40 mg Furosemide (Lasix) 20 mg IVPUSH NOW ONE Stop: 02/17/19 19:29 Last Admin: 02/17/19 20:36 Dose: 20 mg Furosemide (Lasix) 20 mg IVPUSH NOW ONE Stop: 02/18/19 10:29 Last Admin: 02/18/19 11:16 Dose: 20 mg Heparin Sodium (Porcine) (Heparin Sodium) 5,000 units IVPUSH Q8H [facility] Sodium Chloride (Normal Saline) 1,000 mls @ 999 mls/hr IV .BOLUS ONE Stop: 02/15/19 10:59 Last Admin: 02/15/19 10:15 Dose: 999 mls/hr Thiamine HCl 100 mg/ Sodium (Chloride) 101 mls @ 202 mls/hr IV ONETIME ONE Stop: 02/15/19 10:00 Last Admin: 02/15/19 10:25 Dose: 202 mls/hr Potassium Chloride/Dextrose/Sod Cl (D5 Ns With 20 Meq Kcl) 1,000 mls @ 125 mls/ hr IV ASDIRECTED [facility] Last Admin: 02/17/19 02:32 Dose: 125 mls/hr Ceftriaxone Sodium/Dextrose 1 (gm/ Premix) 50 mls @ 100 mls/hr IV ONETIME ONE Stop: 02/15/19 15:54 Last Admin: 02/15/19 15:32 Dose: 100 mls/hr Sodium Chloride (Normal Saline) 500 mls @ 500 mls/hr IV STAT ONE Stop: 02/15/19 17:47 Last Admin: 02/15/19 17:41 Dose: 500 mls/hr Ceftriaxone Sodium/Dextrose 1 (gm/ Premix) 50 mls @ 100 mls/hr IV ONETIME ONE Stop: 02/15/19 17:29 Last Admin: 02/15/19 17:35 Dose: Not Given Thiamine HCl 100 mg/ Sodium (Chloride) 101 mls @ 202 mls/hr IV DAILY ONE Stop: 02/15/19 17:59 Last Admin: 02/15/19 17:35 Dose: Not Given Thiamine HCl 100 mg/ Sodium (Chloride) 101 mls @ 202 mls/hr IV DAILY [facility] Last Admin: 02/18/19 09:58 Dose: Not Given Magnesium Sulfate 2 gm/ Premix 50 mls @ 25 mls/hr IV ONETIME ONE Stop: 02/15/19 20:00 Last Admin: 02/15/19 20:04 Dose: Not Given Magnesium Sulfate 2 gm/ Premix 50 mls @ 25 mls/hr IV ONETIME ONE Stop: 02/16/19 00:59 Last Admin: 02/15/19 22:07 Dose: 25 mls/hr Albumin Human (Buminate 5%) 250 mls @ 125 mls/hr IV ONETIME ONE Stop: 02/16/19 12:15 Last Admin: 02/16/19 11:20 Dose: Not Given Albumin Human (Flexbumin 25%) 12.5 gm in 50 mls @ 100 mls/hr IV Q1H [facility] Stop: 02/16/19 11:59 Last Admin: 02/16/19 13:08 Dose: 100 mls/hr Iopamidol (Isovue Multipack-370 (76%)) 100 ml IVPUSH ONETIME STA Stop: 02/15/19 11:39 Last Admin: 02/15/19 12:11 Dose: 100 ml Lidocaine HCl (Xylocaine-Mpf 1%) 5 ml INJECT ONETIME ONE Stop: 02/15/19 13:30 Last Admin: 02/15/19 13:38 Dose: 5 ml Lorazepam (Ativan) 2 mg IVPUSH ONETIME ONE Stop: 02/15/19 10:00 Last Admin: 02/15/19 10:15 Dose: 2 mg Lorazepam (Ativan) 0 mg IVPUSH ONETIME ONE; Protocol Stop: 02/15/19 16:48 Last Admin: 02/15/19 17:35 Dose: Not Given Lorazepam (Ativan) 0 mg IVPUSH SEECOMMENT PRN; Protocol PRN Reason: CWAT Morphine Sulfate (Morphine) 1 mg IVPUSH Q4H PRN PRN Reason: Pain Last Admin: 02/16/19 13:15 Dose: 1 mg Nicotine (Habitrol) 21 mg TRDERM ONETIME ONE Stop: 02/15/19 15:09 Last Admin: 02/15/19 15:12 Dose: 21 mg Ondansetron HCl (Zofran) 4 mg IVPUSH ONETIME ONE Stop: 02/15/19 10:00 Last Admin: 02/15/19 10:15 Dose: 4 mg Potassium Chloride (Potassium Chloride) 40 meq PO ONETIME ONE Stop: 02/15/19 11:43 Last Admin: 02/15/19 12:35 Dose: 40 meq Potassium Chloride (Klor-Con M20) 40 meq PO ONETIME ONE Stop: 02/16/19 07:52 Last Admin: 02/16/19 08:29 Dose: 40 meq <Anup Mcgowan - Last Filed: 02/18/19 18:36> Discharge Summary - Hospital Course HPI Initial Comments: 63-year-old male with a significant past medical history of hypertension, alcohol abuse presented after drinking half a bottle of alcohol daily for the past 2 to 3 months, abdominal pain with swelling. States abdominal pain and swelling has gotten progressively worse over the past 2 weeks . Patient otherwise denies any fevers, chills, body aches, chest pain, shortness of breath , lower extremity swelling. Denies any dysuria urinary urgency or frequency. CT scan abdomen showed moderate ascites and cirrhosis of liver. Patient was not in hepatic encephalopathy. Patient underwent diagnostic peritoneal tap in ER which showed some possible SBI. Patient was started on ceftriaxone, patients was also started on Lasix and spironolactone , and also received some albumin for volume resuscitation. patient was requiring o2 via nasal cannula and was feeling SOB on ambulation. GI specialist at [place] was called, recommended pericardiocentesis, since no IR service is available at our center, surgery was consulted for possible tap, recommended transfer to tertiary care center for peritoneal tap via IR and possible TIPS in future, and GI evaluation for cirrhosis. Patient was transferred to [place], and was hemodynamically stable for ground transfer with O2. Patient Needs another 2 days of ceftriaxone. - Discharge Data Discharge Date: 02/18/19 - Referral to Home Health Primary Care Physician: Wesley Arroyo MD - Patient Summary/Data Consults: Consultations 02/17/19 10:48 Consult to Physical Therapy [PT Evaluation and Treatment] [CONS] Routine - Discharge Plan Oxygen Therapy Mode: Nasal Cannula - Discharge Summary/Plan Comment DC Time >30 min.: Yes - Patient Data Vitals - Most Recent: Last Vital Signs Temp 37.2 C 02/18/19 11:52 Pulse 90 02/18/19 11:52 Resp 18 02/18/19 11:52 BP 110/78 02/18/19 11:52 Pulse Ox 93 L 02/18/19 11:52 I&O - Last 24 hours: Intake & Output 02/18/19 02/18/19 02/18/19 06:59 14:59 22:59 Intake Total 660 101 Output Total 400 Balance 260 101 Lab Results - Last 24 hrs: Laboratory Results - last 24 hr 02/18/19 02/18/19 02/18/19 Range/Units 04:53 04:53 08:22 WBC 9.94 (4.0-11.0) K/uL RBC 4.07 L (4.50-5.90) M/uL Hgb 13.5 (13.0-17.0) g/dL Hct 39.8 (38.0-50.0) % MCV 97.8 (80.0-98.0) fL MCH 33.2 H (27.0-32.0) pg MCHC 33.9 (31.0-37.0) g/dL RDW Std Deviation 58.8 (28.0-62.0) fl RDW Coeff of Manolo 16 H (11.0-15.0) % Plt Count 141 L (150-400) K/uL MPV 10.10 (7.40-12.00) fL Neut % (Auto) 86.8 H (48.0-80.0) % Lymph % (Auto) 5.7 L (16.0-40.0) % [place] % (Auto) 7.4 (0.0-15.0) % Eos % (Auto) 0.0 (0.0-7.0) % Baso % (Auto) 0.1 (0.0-1.5) % Neut # (Auto) 8.6 H (1.4-5.7) K/uL Lymph # (Auto) 0.6 (0.6-2.4) K/uL [place] # (Auto) 0.7 (0.0-0.8) K/uL Eos # (Auto) 0.0 (0.0-0.7) K/uL Baso # (Auto) 0.0 (0.0-0.1) K/uL Nucleated RBC % 0.0 /100WBC Nucleated RBCs # 0 K/uL INR 1.31 Sodium 141 (136-148) mmol/L Potassium 4.2 (3.5-5.1) mmol/L Chloride 109 H (98-107) mmol/L Carbon Dioxide 21.3 (21.0-32.0) mmol/L BUN 7 (7.0-18.0) mg/dL Creatinine 1.0 (0.8-1.3) mg/dL Est Cr Clr Drug Dosing 77.06 mL/min Estimated GFR (MDRD) > 60.0 ml/min Glucose 136 H (74-106) mg/dL Calcium 7.5 L (8.5-10.1) mg/dL Total Bilirubin 0.7 (0.2-1.0) mg/dL AST 49 H (15-37) IU/L ALT 23 (14-63) IU/L Alkaline Phosphatase 118 H (46-116) U/L Total Protein 7.0 (6.4-8.2) g/dL Albumin 2.2 L (3.4-5.0) g/dL Globulin 4.8 H (2.6-4.0) g/dL Albumin/Globulin Ratio 0.5 L (0.9-1.6) YASSINE Results - Last 24 hrs: Microbiology 02/15/19 17:40 Aerobic Blood Culture - Preliminary Blood - Venous - Lab Draw NO GROWTH AFTER 3 DAYS Anaerobic Blood Culture - Preliminary NO GROWTH AFTER 3 DAYS 02/15/19 17:25 Aerobic Blood Culture - Preliminary Blood - Venous NO GROWTH AFTER 3 DAYS Anaerobic Blood Culture - Preliminary NO GROWTH AFTER 3 DAYS 02/15/19 14:28 Gram Stain - Final Ascities Fluid Body Fluid Culture - Final NO GROWTH AFTER 3 DAYS Med Orders - Current: Current Medications Discontinued Medications Albuterol/Ipratropium (Duoneb 3.0-0.5 Mg/3 Ml) 3 ml NEB Q4HRRT PRN PRN Reason: Shortness of Breath Last Admin: 02/17/19 09:02 Dose: 3 ml Albuterol/Ipratropium (Duoneb 3.0-0.5 Mg/3 Ml) 3 ml NEB Q4HRRT [facility] Last Admin: 02/18/19 09:32 Dose: 3 ml Folic Acid (Folic Acid) 1 mg PO DAILY [facility] Last Admin: 02/18/19 08:57 Dose: 1 mg Furosemide (Lasix) 40 mg IVPUSH NOW ONE Stop: 02/16/19 12:41 Last Admin: 02/16/19 13:14 Dose: 40 mg Furosemide (Lasix) 20 mg IVPUSH NOW ONE Stop: 02/17/19 19:29 Last Admin: 02/17/19 20:36 Dose: 20 mg Furosemide (Lasix) 20 mg IVPUSH NOW ONE Stop: 02/18/19 10:29 Last Admin: 02/18/19 11:16 Dose: 20 mg Heparin Sodium (Porcine) (Heparin Sodium) 5,000 units IVPUSH Q8H [facility] Heparin Sodium (Porcine) (Heparin Sodium) 5,000 units SUBCUT Q8H [facility] Last Admin: 02/18/19 08:58 Dose: 5,000 units Sodium Chloride (Normal Saline) 1,000 mls @ 999 mls/hr IV .BOLUS ONE Stop: 02/15/19 10:59 Last Admin: 02/15/19 10:15 Dose: 999 mls/hr Thiamine HCl 100 mg/ Sodium (Chloride) 101 mls @ 202 mls/hr IV ONETIME ONE Stop: 02/15/19 10:00 Last Admin: 02/15/19 10:25 Dose: 202 mls/hr Potassium Chloride/Dextrose/Sod Cl (D5 Ns With 20 Meq Kcl) 1,000 mls @ 125 mls/ hr IV ASDIRECTED [facility] Last Admin: 02/17/19 02:32 Dose: 125 mls/hr Ceftriaxone Sodium/Dextrose 1 (gm/ Premix) 50 mls @ 100 mls/hr IV ONETIME ONE Stop: 02/15/19 15:54 Last Admin: 02/15/19 15:32 Dose: 100 mls/hr Pantoprazole Sodium 40 mg/ (Sodium Chloride) 10 mls @ 300 mls/hr IV DAILY [facility] Last Admin: 02/18/19 08:57 Dose: 300 mls/hr Sodium Chloride (Normal Saline) 500 mls @ 500 mls/hr IV STAT ONE Stop: 02/15/19 17:47 Last Admin: 02/15/19 17:41 Dose: 500 mls/hr Ceftriaxone Sodium/Dextrose 1 (gm/ Premix) 50 mls @ 100 mls/hr IV ONETIME ONE Stop: 02/15/19 17:29 Last Admin: 02/15/19 17:35 Dose: Not Given Thiamine HCl 100 mg/ Sodium (Chloride) 101 mls @ 202 mls/hr IV DAILY ONE Stop: 02/15/19 17:59 Last Admin: 02/15/19 17:35 Dose: Not Given Ceftriaxone Sodium/Dextrose 2 (gm/ Premix) 50 mls @ 100 mls/hr IV Q24H [facility] Last Admin: 02/17/19 15:18 Dose: 100 mls/hr Thiamine HCl 100 mg/ Sodium (Chloride) 101 mls @ 202 mls/hr IV DAILY [facility] Last Admin: 02/18/19 09:58 Dose: Not Given Magnesium Sulfate 2 gm/ Premix 50 mls @ 25 mls/hr IV ONETIME ONE Stop: 02/15/19 20:00 Last Admin: 02/15/19 20:04 Dose: Not Given Magnesium Sulfate 2 gm/ Premix 50 mls @ 25 mls/hr IV ONETIME ONE Stop: 02/16/19 00:59 Last Admin: 02/15/19 22:07 Dose: 25 mls/hr Albumin Human (Buminate 5%) 250 mls @ 125 mls/hr IV ONETIME ONE Stop: 02/16/19 12:15 Last Admin: 02/16/19 11:20 Dose: Not Given Albumin Human (Flexbumin 25%) 12.5 gm in 50 mls @ 100 mls/hr IV Q1H [facility] Stop: 02/16/19 11:59 Last Admin: 02/16/19 13:08 Dose: 100 mls/hr Thiamine HCl 100 mg/ Sodium (Chloride) 101 mls @ 202 mls/hr IV Q24H [facility] Last Admin: 02/18/19 10:04 Dose: 202 mls/hr Iopamidol (Isovue Multipack-370 (76%)) 100 ml IVPUSH ONETIME STA Stop: 02/15/19 11:39 Last Admin: 02/15/19 12:11 Dose: 100 ml Lactulose (Chronulac) 10 gm PO DAILY [facility] Last Admin: 02/18/19 08:56 Dose: 10 gm Lidocaine HCl (Xylocaine-Mpf 1%) 5 ml INJECT ONETIME ONE Stop: 02/15/19 13:30 Last Admin: 02/15/19 13:38 Dose: 5 ml Lorazepam (Ativan) 2 mg IVPUSH ONETIME ONE Stop: 02/15/19 10:00 Last Admin: 02/15/19 10:15 Dose: 2 mg Lorazepam (Ativan) 0 mg IVPUSH ONETIME ONE; Protocol Stop: 02/15/19 16:48 Last Admin: 02/15/19 17:35 Dose: Not Given Lorazepam (Ativan) 1 mg IVPUSH .Q5MIN PRN PRN Reason: Seizures Lorazepam (Ativan) 0 mg IVPUSH SEECOMMENT PRN; Protocol PRN Reason: CWAT Lorazepam (Ativan) 0 mg IVPUSH Q4H PRN; Protocol PRN Reason: Other Morphine Sulfate (Morphine) 1 mg IVPUSH Q4H PRN PRN Reason: Pain Last Admin: 02/16/19 13:15 Dose: 1 mg Morphine Sulfate (Morphine) 1 mg IVPUSH Q2H PRN PRN Reason: Pain Last Admin: 02/16/19 16:20 Dose: 1 mg Multivitamins/Minerals/Vitamin C (Tab-A-Darien) 1 tab PO DAILY [facility] Last Admin: 02/18/19 08:57 Dose: 1 tab Nicotine (Habitrol) 21 mg TRDERM ONETIME ONE Stop: 02/15/19 15:09 Last Admin: 02/15/19 15:12 Dose: 21 mg Ondansetron HCl (Zofran) 4 mg IVPUSH ONETIME ONE Stop: 02/15/19 10:00 Last Admin: 02/15/19 10:15 Dose: 4 mg Ondansetron HCl (Zofran Odt) 4 mg PO Q6H PRN PRN Reason: Nausea/Vomiting Last Admin: 02/16/19 13:11 Dose: 4 mg Potassium Chloride (Potassium Chloride) 40 meq PO ONETIME ONE Stop: 02/15/19 11:43 Last Admin: 02/15/19 12:35 Dose: 40 meq Potassium Chloride (Klor-Con M20) 40 meq PO ONETIME ONE Stop: 02/16/19 07:52 Last Admin: 02/16/19 08:29 Dose: 40 meq Prednisone (Prednisone) 40 mg PO WITHBREAKFAST [facility] Last Admin: 02/18/19 08:57 Dose: 40 mg Fluticasone/Salmeterol (Advair Diskus 100-50) 0 puff INH BID [facility] Last Admin: 02/18/19 09:32 Dose: 1 inhalation Simethicone (Simethicone) 80 mg PO Q4H PRN PRN Reason: bloating Last Admin: 02/18/19 06:39 Dose: 80 mg Spironolactone (Aldactone) 50 mg PO DAILY [facility]
--- NOTE | 2019-02-18 13:28 | ECHO ---
EXAM DATE: 02/15/19 PATIENT'S AGE: 63 The echocardiogram report can be seen in this patient's EMR (Electronic Medical Record) in the Reports section. The report has also been scanned into PACs. JAIRON
[2019-02-19] MEDS ORDERED: Spironolactone 25 MG Tab PO SCH (09:00)
== END 2019-02-18 13:30 | DRG 372 ==
LOC: MW.ED 09:10 → MW.MS 15:56
PROVIDERS: ADMIT Student in an Organized Health Care Education/Training Program; ATTEND Student in an Organized Health Care Education/Training Program
PROC: 0W9G3ZX Drainage of Peritoneal Cavity, Percutaneous Approach, Diagnostic (ICD-10-PCS; principal; 2019-02-15)
DX: K65.2 Spontaneous bacterial peritonitis (principal); F10.188 Alcohol abuse with other alcohol-induced disorder; K70.31 Alcoholic cirrhosis of liver with ascites; F17.210 Nicotine dependence, cigarettes, uncomplicated; R18.8 Other ascites; Y90.0 Blood alcohol level of less than 20 mg/100 ml; E87.6 Hypokalemia; R74.0 Nonspecific elevation of levels of transaminase and lactic acid dehydrogenase [LDH]; I10 Essential (primary) hypertension; F17.200 Nicotine dependence, unspecified, uncomplicated; Z79.52 Long term (current) use of systemic steroids; Z79.899 Other long term (current) drug therapy
CPT/HCPCS: 36415; 49083; 71045; 74177; 80053; 81001; 82803; 83735; 83986; 85007; 85027; 85610; 87070; 87205; 89050; 96365; 96375; 99285; A9270 ×2; G0480; J0696; J2001; J2060; J2405; J3411; J3480; J7030; J7050; Q9967; 82140; 85025; 87040; 93005; 93306; 94640; 97161-GP; 99284; C9113; J1644; J1940; J2270; J3475; J7040; J7620-GY; P9047

== ENCOUNTER 2019-03-12 08:44 | Emergency (ER) | payer MEDICARE, MEDICAID ==
--- NOTE | 2019-03-12 09:15 | EDM.PDOC ---
ED HPI GENERAL MEDICAL PROBLEM - General Chief Complaint: General Stated Complaint: FLUID DRAINING FROM STOMACH Time Seen by Provider: 03/12/19 08:45 Source of Information: Reports: Patient History Limitations: Reports: No Limitations - History of Present Illness INITIAL COMMENTS - FREE TEXT/NARRATIVE: HISTORY OF PRESENT ILLNESS: Patient is a 64-year-old male with history of cirrhosis of the liver and ascites who has weekly paracentesis performed. Yesterday (at [place]) they drained 2.5 L of fluid without any intra-procedural complications. However when he went home, he has had persistent leaking of fluid from the incision site. He had called the radiologist who recommended he go to the emergency room for a single stitch placement which will be removed by themselves on his next appointment (). Patient denies any fevers or chills. No new abdominal pain. No chest pain or dyspnea. Urinating normally. REVIEW OF SYSTEMS: Other than the symptoms associated with the present events, the following is reported with regard to recent health: General: (-) fever. HENT: (-) congestion. Respiratory: (-) cough. Cardiovascular: (-) chest pain. GI: (-) n/v/d (-) new abdominal pain or change from baseline : (-) urinary complaints. Musculoskeletal: (-) other aches or pains. Endocrine: (-) generalized weakness. Neurological: (-) localized weakness. Skin: (+) draining clear fluid from incision site PAST MEDICAL HISTORY: reviewed as per nursing notes SOCIAL HISTORY: reviewed as per nursing notes, MEDICATIONS: Per nurse's note ALLERGIES: Per nurse's note, reviewed by me PHYSICAL EXAMINATION: GENERALIZED APPEARANCE: well developed, well nourished in no distress VITAL SIGNS: Per nurse's note, reviewed by me (initial pulse ox entered incorrectly by RN) SKIN: Warm, dry; (-) cyanosis; (-) rash. HEAD: (-) scalp swelling, (-) tenderness. EYES: (-) conjunctival pallor, (-) scleral icterus. ENMT: (-) stridor; mucous membranes moist. NECK: (-) tenderness, (-) stiffness, CHEST AND RESPIRATORY: (-) rales, (-) rhonchi, (-) wheezes; breath sounds equal bilaterally. HEART AND CARDIOVASCULAR: (-) irregularity; (-) murmur, (-) gallop. ABDOMEN AND GI: Soft; (-) tenderness, (-) guarding, (-) rebound, (-) palpable masses, small ~1cm incision right abdomen with minimal leaking clear peritoneal fluid. No active bleeding. EXTREMITIES: (-) deformity, (-) edema. NEURO AND PSYCH: Alert. Cranial nerves grossly intact; strength symmetric. gait steady PROCEDURE NOTE: SEE BELOW EMERGENCY DEPARTMENT COURSE AND TREATMENT: Patient's condition improved during Emergency Department evaluation. . Patient's wound was aseptically prepped and draped The wound was closed without incident and the patient tolerated the procedure well. The patient was advised of risk of infection, and it was felt that the risk of infection was outweighed by the need to close this wound to stop fluid drainage. The patient was given wound care precautions and understands to seek medical attention immediately if there are any signs of infection. Otherwise, the patient will follow up with the primary care provider in 1-2 days for wound check and 6 days for suture removal at IR in [place] PLAN AND FOLLOW-UP: Patient received written and verbal instructions regarding this condition. Return to ED immediately with any new or worsening symptoms. Follow up to be arranged by patient with pcp in 1-2 days for wound check and have suture removed next at IR by [facility] as previously arranged. Given discharge precautions. Patient expressed verbal understanding. Back Pain Pain Score (Numeric/FACES): 7 - Related Data Allergies Allergy/AdvReac Type Severity Reaction Status Date / Time No Known Allergies Allergy Verified 03/12/19 09:03 Home Meds: Home Meds Albuterol [Ventolin HFA] 1 puff INH Q2H PRN #1 puff 01/27/18 [Rx] Mirtazapine 45 mg PO BEDTIME 02/15/19 [History] amLODIPine [Norvasc] 10 mg PO DAILY 02/15/19 [History] Albuterol/Ipratropium [DuoNeb 3.0-0.5 MG/3 ML] 3 ml NEB Q4HRRT neb 02/18/19 [Rx ] Fluticasone/Salmeterol [Advair 100-50] 0 puff INH BID diskus 02/18/19 [Rx] Folic Acid 1 mg PO DAILY tablet 02/18/19 [Rx] Lactulose [Chronulac] 10 gm PO DAILY cup 02/18/19 [Rx] Multivitamins [Tab-A-Darien] 1 tab PO DAILY tablet 02/18/19 [Rx] Ondansetron [Zofran ODT] 4 mg PO Q6H PRN tab.dis 02/18/19 [Rx] Simethicone 80 mg PO Q4H PRN tab.chew 02/18/19 [Rx] Thiamine [Vitamin B-1] 100 mg IV Q24H mdv 02/18/19 [Rx] cefTRIAXone [Rocephin in Dextrose,Iso-Osm 2 GM/50 ML] 2 gm IV Q24H bag [Rx] predniSONE 40 mg PO WITHBREAKFAST tablet 02/18/19 [Rx] Spironolactone [Aldactone] 100 mg PO BID 03/12/19 [History] Past Medical History - Past Health History Medical/Surgical History: Denies Medical/Surgical History HEENT History: Reports: None Cardiovascular History: Reports: Hypertension Respiratory History: Reports: Other (See Below) Other Respiratory History: 50 years smoker Gastrointestinal History: Reports: None Genitourinary History: Reports: None Musculoskeletal History: Reports: None Neurological History: Reports: None Psychiatric History: Reports: None Endocrine/Metabolic History: Reports: None Hematologic History: Reports: None Immunologic History: Reports: None Dermatologic History: Reports: None - Infectious Disease History Infectious Disease History: Reports: None - Past Surgical History Head Surgeries/Procedures: Reports: None HEENT Surgical History: Reports: None Cardiovascular Surgical History: Reports: None Male Surgical History: Reports: None Social & Family History - Family History Family Medical History: Noncontributory - Tobacco Use Smoking Status *Q: Current Every Day Smoker Years of Tobacco use: 50 Packs/Tins Daily: 0.5 - Caffeine Use Caffeine Use: Reports: Coffee - Recreational Drug Use Recreational Drug Use: No ED ROS GENERAL - Review of Systems Review Of Systems: See Below (see dictation) ED EXAM, GENERAL - Physical Exam Exam: See Below (see dictation) ED GENERAL MEDICAL PROCEDURES - Laceration/Wound Repair Right Abdomen Appearance: Linear Distal NVT: Neuro & Vascular Intact Anesthetic Type: Local Local Anesthesia - Lidocaine (Xylocaine): 1% Plain Local Anesthetic Volume: 2cc Skin Prep: Providone-Iodine (Betadine) Exploration/Debridement/Repair: Wound Explored, No Foreign Material Found Closed with: Sutures Suture Size: 4-0 # of Sutures: 1 Suture Type: Prolene Drain Placement: No Sterile Dressing Applied: Nurse Complications: No Course - Vital Signs Last Recorded V/S: Last Vital Signs Temp 97.3 F 03/12/19 09:05 Pulse 98 03/12/19 09:38 Resp 16 03/12/19 09:38 BP 118/76 03/12/19 09:38 Pulse Ox 94 L 03/12/19 09:38 - Orders/Labs/Meds Meds: Medications Discontinued Medications Generic Name Dose Route Start Last Admin Trade Name Taina PRN Reason Stop Dose Admin Lidocaine HCl Confirm 03/12/19 09:06 Xylocaine-Mpf 1% Administered 03/12/19 09:07 Dose 5 ml .ROUTE .STK-MED ONE Departure - Departure Time of Disposition: 09:14 Disposition: Home, Self-Care 01 Condition: Good Clinical Impression: Suture of skin wound - Discharge Information *PRESCRIPTION DRUG MONITORING PROGRAM REVIEWED*: Not Applicable *COPY OF PRESCRIPTION DRUG MONITORING REPORT IN PATIENT ANDRES: Not Applicable Instructions: Sutured Wound Care Referrals: Wesley Arroyo MD [Primary Care Provider] - (Follow up on as previously scheduled for suture removal) Forms: ED Department Discharge Additional Instructions: The following information is given to patients seen in the emergency department who are being discharged to home. This information is to outline your options for follow-up care. We provide all patients seen in our emergency department with a follow-up referral. The need for follow-up, as well as the timing and circumstances, are variable depending upon the specifics of your emergency department visit. If you don't have a primary care physician on staff, we will provide you with a referral. We always advise you to contact your personal physician following an emergency department visit to inform them of the circumstance of the visit and for follow-up with them and/or the need for any referrals to a consulting specialist. The emergency department will also refer you to a specialist when appropriate. This referral assures that you have the opportunity for follow-up care with a specialist. All of these measure are taken in an effort to provide you with optimal care, which includes your follow-up. Under all circumstances we always encourage you to contact your private physician who remains a resource for coordinating your care. When calling for follow-up care, please make the office aware that this follow-up is from your recent emergency room visit. If for any reason you are refused follow-up, please contact the [facility] Emergency Department at and asked to speak to the emergency department charge nurse. Sepsis Event Note - Evaluation Sepsis Screening Result: No Definite Risk - Focused Exam Vital Signs: Vital Signs Temp Pulse Resp BP Pulse Ox 03/12/19 09:38 98 16 118/76 94 L 03/12/19 09:05 97.3 F 97 16 118/89 19 L Date Exam was Performed: 03/12/19 Time Exam was Performed: 10:07
[2019-03-12 09:39] VITALS: BP 118/76; PULSE 98
== END 2019-03-12 09:39 | disposition home or self-care (01) ==
LOC: MW.ED 08:44
DX: K91.89 Other postprocedural complications and disorders of digestive system (principal); I10 Essential (primary) hypertension; F17.210 Nicotine dependence, cigarettes, uncomplicated; Z79.899 Other long term (current) drug therapy; Y83.8 Other surgical procedures as the cause of abnormal reaction of the patient, or of later complication, without mention of misadventure at the time of the procedure
CPT/HCPCS: 12001; 99283; J2001

== ENCOUNTER 2022-04-29 09:10 | Emergency (ER) | payer MEDICARE, MEDICAID ==
[2022-04-29 11:20] LABS: BLOOD UREA NITROGEN,BUN 7 mg/dL (7.0-18.0); CARBON DIOXIDE,CO2 28.1 mmol/L (21.0-32.0); CHLORIDE,CL 106 mmol/L (98-107); GLUCOSE RANDOM 94 mg/dL (74-106); LIPASE 69 U/L (73-393); POTASSIUM,K 3.5 mmol/L (3.5-5.1); SODIUM,NA 141 mmol/L (136-148)
[2022-04-29 11:21] LABS: ESTIMATED GFR 55 mL/min (>60)
[2022-04-29] MEDS ORDERED: Iopamidol 755 MG/ML 500 ML Multipack Bottle IVPUSH STA (11:39)
[2022-04-29] MEDS ORDERED: Furosemide 40 MG/4 ML VIAL IVPUSH ONE (14:24)
[2022-04-29 19:19] VITALS: BP 149/62; PULSE 68
== END 2022-04-29 14:59 | disposition home or self-care (01) ==
LOC: MW.ED 09:10
DX: E87.70 Fluid overload, unspecified (principal); I10 Essential (primary) hypertension; Z20.822 Contact with and (suspected) exposure to COVID-19
CPT/HCPCS: 36415; 71045; 74177; 80053; 80307; 82140; 83605; 83690; 83735; 84484; 85025; 85610; 85730; 93005; 96374; 99284; J1940; Q9967; U0002; 93010

== ENCOUNTER 2023-02-20 10:18 | Emergency (ER) | payer MEDICARE, MEDICAID ==
[2023-02-20] MEDS ORDERED: Sodium Chloride 0.9% 2.5 ML Syringe FLUSH PRN (10:27)
[2023-02-20] MEDS ORDERED: Sodium Chloride 0.9% 10 ML Syringe FLUSH PRN (10:27)
[2023-02-20 10:48] LABS: BASOPHILS ABSOLUTE AUTO 0.08 K/uL (0.00-0.20); BASOPHILS PERCENT AUTO 1.2 % (0.0-1.0); EOSINOPHILS ABSOLUTE AUTO 0.35 K/uL (0.00-0.45); EOSINOPHILS PERCENT AUTO 5.2 % (0.0-6.0); HEMATOCRIT 36.9 % (42.0-52.0); HEMOGLOBIN 13.1 g/dL (14.0-18.0); IMMATURE GRAN ABSOLUTE AUTO 0.03 K/uL (0.00-0.05); IMMATURE GRAN PERCENT AUTO 0.4 % (0.0-0.4); LYMPHOCYTES ABSOLUTE AUTO 2.13 K/uL (1.00-4.80); LYMPHOCYTES PERCENT AUTO 31.7 % (24.0-44.0); MEAN CORPUSCULAR HEMOGLOBIN 35.3 pg (28.0-32.0); MEAN CORPUSCULAR HGB CONC 35.5 g/dL (32.0-36.0); MEAN CORPUSCULAR VOLUME 99.5 fL (83.0-99.0); MEAN PLATELET VOLUME 9.9 fL (9.4-12.4); MONOCYTES ABSOLUTE AUTO 0.81 K/uL (0.00-0.80); MONOCYTES PERCENT AUTO 12.1 % (0.0-8.0); NEUTROPHILS ABSOLUTE AUTO 3.31 K/uL (1.80-7.70); NEUTROPHILS PERCENT AUTO 49.4 % (41.0-71.0); PLATELET COUNT,PLT 81 K/uL (150-400); RED BLOOD CELL COUNT 3.71 M/uL (4.52-5.90); WHITE BLOOD CELL COUNT,WBC 6.71 K/uL (3.9-11.3)
[2023-02-20 11:16] LABS: A/G RATIO 0.6 (0.9-1.6); ALBUMIN 2.4 g/dL (3.4-5.0); BILIRUBIN TOTAL 5.8 mg/dL (0.2-1.0); CALCIUM 8.8 mg/dL (8.5-10.1); CARBON DIOXIDE,CO2 30.6 mmol/L (21.0-32.0); CREATININE 1.6 mg/dL (0.8-1.3); EST CRCL DRUG DOSING (CG) 44.19 mL/min; MAGNESIUM 1.6 mg/dL (1.8-2.4); POTASSIUM,K 4.1 mmol/L (3.5-5.1); PROTEIN TOTAL,TP 6.5 g/dL (6.4-8.2)
[2023-02-20] MEDS ORDERED: Magnesium Sulfate/Water 2 GM in Premix Bag 1 BAG IV ONE (11:23)
[2023-02-20] MEDS ORDERED: Iopamidol 755 MG/ML 500 ML Multipack Bottle IVPUSH ONE (11:57)
[2023-02-20 12:40] LABS: GLUCOSE,URINE NEGATIVE (NEGATIVE); KETONES,URINE NEGATIVE (NEGATIVE); LEUKOCYTE ESTERASE,URINE NEGATIVE (NEGATIVE); NITRITE,URINE NEGATIVE (NEGATIVE); OCCULT BLOOD,URINE NEGATIVE (NEGATIVE); PROTEIN,URINE NEGATIVE (NEGATIVE)
[2023-02-20 12:41] LABS: APPEARANCE,URINE HAZY; BILIRUBIN,URINE SMALL (NEGATIVE); COLOR,URINE AMBER
[2023-02-20 13:17] VITALS: BP 139/79; PULSE 56
== END 2023-02-20 14:08 | disposition home or self-care (01) ==
LOC: MW.ED 10:18
DX: E72.20 Disorder of urea cycle metabolism, unspecified (principal); Q27.30 Arteriovenous malformation, site unspecified; I10 Essential (primary) hypertension; Z79.899 Other long term (current) drug therapy
CPT/HCPCS: 36415; 70450; 70496; 70498; 71045; 80053; 81003; 82140; 83605; 83735; 84484; 85025; 93005; 96365; 96366; 99285; J3475; J3490; Q9967

== ENCOUNTER 2023-05-27 14:21 | Inpatient (IN) | payer MEDICARE, MEDICAID ==
[2023-05-27] MEDS: Sodium Chloride 0.9% 2.5 ML Syringe FLUSH PRN (16:06)
[2023-05-27] MEDS: Sodium Chloride 0.9% 10 ML Syringe FLUSH PRN (16:06)
[2023-05-27] MEDS: Sodium Chloride 0.9% 500 ML IV ONE (16:06)
[2023-05-27 16:23] LABS: HEMOGLOBIN 10.7 g/dL (14.0-18.0); MEAN CORPUSCULAR HEMOGLOBIN 35.9 pg (28.0-32.0); MEAN CORPUSCULAR HGB CONC 34.5 g/dL (32.0-36.0); MEAN PLATELET VOLUME 10.6 fL (9.4-12.4); PLATELET COUNT,PLT 75 K/uL (150-400); RED BLOOD CELL COUNT 2.98 M/uL (4.52-5.90); WHITE BLOOD CELL COUNT,WBC 17.87 K/uL (3.9-11.3)
[2023-05-27 16:45] LABS: BAND ABSOLUTE MAN 0.18; BAND PERCENT MAN 1 %; LYMPHOCYTES ABSOLUTE MAN 2.32 K/uL (1.00-4.80); LYMPHOCYTES PERCENT MAN 13 % (24-44); MONOCYTES ABSOLUTE MAN 1.25 K/uL (0.00-0.80); MONOCYTES PERCENT MAN 7 % (0-8); SEG NEUTROPHILS ABSOLUTE MAN 14.12 K/uL (1.80-7.70); SEG NEUTROPHILS PERCENT MAN 79 % (41-71)
[2023-05-27 16:58] LABS: A/G RATIO 0.5 (0.9-1.6); BILIRUBIN TOTAL 6.4 mg/dL (0.2-1.0); CALCIUM 8.1 mg/dL (8.5-10.1); CARBON DIOXIDE,CO2 27.6 mmol/L (21.0-32.0); CREATININE 1.5 mg/dL (0.8-1.3); EST CRCL DRUG DOSING (CG) 47.99 mL/min; POTASSIUM,K 4.1 mmol/L (3.5-5.1); PROTEIN TOTAL,TP 6.4 g/dL (6.4-8.2)
[2023-05-27 16:59] LABS: GLUCOSE,URINE 100 mg/dL (NEGATIVE); KETONES,URINE NEGATIVE (NEGATIVE); LEUKOCYTE ESTERASE,URINE NEGATIVE (NEGATIVE); NITRITE,URINE POSITIVE (NEGATIVE); OCCULT BLOOD,URINE SMALL (NEGATIVE); PROTEIN,URINE NEGATIVE (NEGATIVE); UROBILINOGEN,URINE >=8.0 EU/dL (<2.0)
[2023-05-27 17:06] LABS: LACTIC ACID 2.5 mmol/L (0.4-2.0)
[2023-05-27] MEDS: Albuterol/Ipratropium 3.0-0.5 MG/3 ML Neb Soln NEB ONE (17:18)
[2023-05-27] MEDS: Piperacillin/Tazobactam 3.375 GM in Sodium Chloride 0.9% 100 ML IV ONE (17:19)
[2023-05-27 17:31] LABS: APPEARANCE,URINE SLT CLOUDY; BACTERIA,URINE FEW (NEGATIVE); BILIRUBIN,URINE MODERATE (NEGATIVE); COLOR,URINE ORANGE; EPITHELIAL CELLS,URINE RARE (NONE-FEW); RBC,URINE 0-3 (0-2/HPF); WBC,URINE 0-1 (0-5/HPF)
[2023-05-27] MEDS: VANCOmycin 1.75 GM/350 ML 1.75 GM in Premix Bag 1 BAG IV ONE (17:45)
[2023-05-27] MEDS: Sodium Chloride 0.9% 2,000 ML IV ONE (17:49)
[2023-05-27] MEDS: SODIUM CHLORIDE 0.9% IV ONE (18:38)
[2023-05-27] MEDS ORDERED: Polyethylene Glycol 3350 Powder 17 GM Packet PO PRN (18:40)
[2023-05-27] MEDS ORDERED: Ondansetron 4 MG Tab.DIS PO PRN (18:40)
[2023-05-27] MEDS ORDERED: Acetaminophen 325 MG Tab PO PRN (18:40)
[2023-05-27 20:15] LABS: LACTIC ACID 1.1 mmol/L (0.4-2.0)
[2023-05-27 20:48] LABS: HEMOGLOBIN A1C 4.1 %
[2023-05-27] MEDS: LORazepam 2 MG/ML SDV IVPUSH ONE (21:49)
[2023-05-28] MEDS: Piperacillin/Tazobactam 4.5 GM in Sodium Chloride 0.9% 100 ML IV SCH (01:08)
[2023-05-28] MEDS: Albuterol/Ipratropium 3.0-0.5 MG/3 ML Neb Soln NEB PRN (04:53)
[2023-05-28 05:46] LABS: BASOPHILS ABSOLUTE AUTO 0.08 K/uL (0.00-0.20); BASOPHILS PERCENT AUTO 0.8 % (0.0-1.0); EOSINOPHILS ABSOLUTE AUTO 0.37 K/uL (0.00-0.45); EOSINOPHILS PERCENT AUTO 3.5 % (0.0-6.0); HEMATOCRIT 28.1 % (42.0-52.0); HEMOGLOBIN 9.9 g/dL (14.0-18.0); IMMATURE GRAN ABSOLUTE AUTO 0.21 K/uL (0.00-0.05); LYMPHOCYTES ABSOLUTE AUTO 2.25 K/uL (1.00-4.80); LYMPHOCYTES PERCENT AUTO 21.2 % (24.0-44.0); MEAN CORPUSCULAR HEMOGLOBIN 36.7 pg (28.0-32.0); MEAN CORPUSCULAR HGB CONC 35.2 g/dL (32.0-36.0); MEAN CORPUSCULAR VOLUME 104.1 fL (83.0-99.0); MEAN PLATELET VOLUME 10.7 fL (9.4-12.4); MONOCYTES ABSOLUTE AUTO 1.16 K/uL (0.00-0.80); MONOCYTES PERCENT AUTO 10.9 % (0.0-8.0); NEUTROPHILS ABSOLUTE AUTO 6.56 K/uL (1.80-7.70); NEUTROPHILS PERCENT AUTO 61.6 % (41.0-71.0); PLATELET COUNT,PLT 64 K/uL (150-400); WHITE BLOOD CELL COUNT,WBC 10.63 K/uL (3.9-11.3)
[2023-05-28 06:03] LABS: INR 1.86 (0.86-1.11)
[2023-05-28 06:12] LABS: A/G RATIO 0.5 (0.9-1.6); ALBUMIN 1.7 g/dL (3.4-5.0); BILIRUBIN TOTAL 5.2 mg/dL (0.2-1.0); CALCIUM 7.6 mg/dL (8.5-10.1); CARBON DIOXIDE,CO2 25.4 mmol/L (21.0-32.0); CREATININE 1.3 mg/dL (0.8-1.3); EST CRCL DRUG DOSING (CG) 55.37 mL/min; POTASSIUM,K 3.6 mmol/L (3.5-5.1); PROTEIN TOTAL,TP 5.5 g/dL (6.4-8.2)
[2023-05-28] MEDS: Lactulose Soln 10 GM/15 ML 15 ML UD Cup PO SCH (08:57)
[2023-05-28] MEDS: VANCOmycin 1.5 GM/300 ML 1.5 GM in Premix Bag 1 BAG IV SCH (16:51)
[2023-05-28] MEDS: Spironolactone 25 MG Tab PO SCH (18:34)
[2023-05-28] MEDS: Furosemide 40 MG Tab PO SCH (18:34)
[2023-05-28] MEDS ORDERED: Albuterol 8 GM Inhaler INH PRN (20:07)
[2023-05-28] MEDS: ALBUTEROL INH PRN (20:44)
[2023-05-29 06:10] LABS: BASOPHILS ABSOLUTE AUTO 0.08 K/uL (0.00-0.20); EOSINOPHILS ABSOLUTE AUTO 0.37 K/uL (0.00-0.45); EOSINOPHILS PERCENT AUTO 4.5 % (0.0-6.0); HEMATOCRIT 26.9 % (42.0-52.0); HEMOGLOBIN 9.2 g/dL (14.0-18.0); IMMATURE GRAN ABSOLUTE AUTO 0.22 K/uL (0.00-0.05); IMMATURE GRAN PERCENT AUTO 2.7 % (0.0-0.4); LYMPHOCYTES ABSOLUTE AUTO 1.84 K/uL (1.00-4.80); LYMPHOCYTES PERCENT AUTO 22.5 % (24.0-44.0); MEAN CORPUSCULAR HEMOGLOBIN 35.5 pg (28.0-32.0); MEAN CORPUSCULAR HGB CONC 34.2 g/dL (32.0-36.0); MEAN CORPUSCULAR VOLUME 103.9 fL (83.0-99.0); MEAN PLATELET VOLUME 10.3 fL (9.4-12.4); NEUTROPHILS ABSOLUTE AUTO 4.77 K/uL (1.80-7.70); NEUTROPHILS PERCENT AUTO 58.3 % (41.0-71.0); PLATELET COUNT,PLT 70 K/uL (150-400); RED BLOOD CELL COUNT 2.59 M/uL (4.52-5.90); WHITE BLOOD CELL COUNT,WBC 8.18 K/uL (3.9-11.3)
[2023-05-29 06:34] LABS: A/G RATIO 0.4 (0.9-1.6); ALBUMIN 1.5 g/dL (3.4-5.0); BILIRUBIN TOTAL 3.5 mg/dL (0.2-1.0); CALCIUM 7.5 mg/dL (8.5-10.1); CREATININE 1.3 mg/dL (0.8-1.3); EST CRCL DRUG DOSING (CG) 55.37 mL/min; POTASSIUM,K 3.7 mmol/L (3.5-5.1); PROTEIN TOTAL,TP 5.3 g/dL (6.4-8.2)
[2023-05-29] MEDS: Folic Acid 1 MG Tab PO SCH (10:57)
[2023-05-29] MEDS: Pantoprazole 40 MG Tab.CR PO SCH (10:57)
[2023-05-29] MEDS: Multivitamin Tab PO SCH (10:57)
[2023-05-29] MEDS: Cyanocobalamin (Vitamin B12) 500 MCG Tab PO SCH (10:57)
[2023-05-29] MEDS: Thiamine 100 MG Tab PO SCH (21:59)
[2023-05-29] MEDS: LORazepam 2 MG/ML SDV IVPUSH ONE (21:59)
[2023-05-30 06:12] LABS: BASOPHILS ABSOLUTE AUTO 0.08 K/uL (0.00-0.20); BASOPHILS PERCENT AUTO 1.1 % (0.0-1.0); EOSINOPHILS ABSOLUTE AUTO 0.39 K/uL (0.00-0.45); EOSINOPHILS PERCENT AUTO 5.3 % (0.0-6.0); HEMATOCRIT 27.9 % (42.0-52.0); HEMOGLOBIN 9.6 g/dL (14.0-18.0); IMMATURE GRAN ABSOLUTE AUTO 0.23 K/uL (0.00-0.05); IMMATURE GRAN PERCENT AUTO 3.1 % (0.0-0.4); LYMPHOCYTES ABSOLUTE AUTO 2.09 K/uL (1.00-4.80); LYMPHOCYTES PERCENT AUTO 28.3 % (24.0-44.0); MEAN CORPUSCULAR HEMOGLOBIN 35.4 pg (28.0-32.0); MEAN CORPUSCULAR HGB CONC 34.4 g/dL (32.0-36.0); MEAN PLATELET VOLUME 10.7 fL (9.4-12.4); MONOCYTES ABSOLUTE AUTO 0.83 K/uL (0.00-0.80); MONOCYTES PERCENT AUTO 11.2 % (0.0-8.0); NEUTROPHILS ABSOLUTE AUTO 3.76 K/uL (1.80-7.70); PLATELET COUNT,PLT 73 K/uL (150-400); RED BLOOD CELL COUNT 2.71 M/uL (4.52-5.90); WHITE BLOOD CELL COUNT,WBC 7.38 K/uL (3.9-11.3)
[2023-05-30 06:37] LABS: A/G RATIO 0.4 (0.9-1.6); ALBUMIN 1.6 g/dL (3.4-5.0); BILIRUBIN TOTAL 3.5 mg/dL (0.2-1.0); CALCIUM 7.7 mg/dL (8.5-10.1); CREATININE 1.5 mg/dL (0.8-1.3); EST CRCL DRUG DOSING (CG) 47.99 mL/min; POTASSIUM,K 3.4 mmol/L (3.5-5.1); PROTEIN TOTAL,TP 5.7 g/dL (6.4-8.2)
[2023-05-30] MEDS: Potassium Chloride 20 MEQ Tab.ER PO ONE (10:52)
[2023-05-30 11:51] VITALS: BP 132/62; PULSE 71
== END 2023-05-30 12:00 | disposition home or self-care (01) | DRG 872 ==
LOC: MW.ED 14:21 → MW.MS 18:10
PROVIDERS: ADMIT Family Medicine; ATTEND Family Medicine
DX: A41.9 Sepsis, unspecified organism (principal); L03.113 Cellulitis of right upper limb; N39.0 Urinary tract infection, site not specified; F17.200 Nicotine dependence, unspecified, uncomplicated; K74.60 Unspecified cirrhosis of liver; Z75.8 Other problems related to medical facilities and other health care; I10 Essential (primary) hypertension; G30.9 Alzheimer's disease, unspecified; F02.80 Dementia in other diseases classified elsewhere, unspecified severity, without behavioral disturbance, psychotic disturbance, mood disturbance, and anxiety; K72.10 Chronic hepatic failure without coma; Z79.51 Long term (current) use of inhaled steroids; Z79.899 Other long term (current) drug therapy; Z95.828 Presence of other vascular implants and grafts
CPT/HCPCS: 36415; 80053; 81001; 83036; 83605; 85025; 87040 ×2; 96361; 96365; 96367; 99284; J2543; J3370; J3490 ×2; J7030; 36410; 80202; 85610; 87641; 94640; 99222; 99232; 99239; 99285; A9270-GY; J2060; J7620-GY

== ENCOUNTER 2024-01-03 16:25 | Emergency (ER) | payer MEDICARE, MEDICAID ==
[2024-01-03] MEDS: Acetaminophen 500 MG Tab PO ONE (16:56)
[2024-01-03 17:05] LABS: BASOPHILS ABSOLUTE AUTO 0.06 K/uL (0.00-0.20); BASOPHILS PERCENT AUTO 1.1 % (0.0-1.0); EOSINOPHILS ABSOLUTE AUTO 0.18 K/uL (0.00-0.45); EOSINOPHILS PERCENT AUTO 3.2 % (0.0-6.0); HEMATOCRIT 28.4 % (42.0-52.0); HEMOGLOBIN 9.6 g/dL (14.0-18.0); IMMATURE GRAN ABSOLUTE AUTO 0.03 K/uL (0.00-0.05); IMMATURE GRAN PERCENT AUTO 0.5 % (0.0-0.4); LYMPHOCYTES ABSOLUTE AUTO 1.64 K/uL (1.00-4.80); LYMPHOCYTES PERCENT AUTO 29.1 % (24.0-44.0); MEAN CORPUSCULAR HEMOGLOBIN 34.4 pg (28.0-32.0); MEAN CORPUSCULAR HGB CONC 33.8 g/dL (32.0-36.0); MEAN CORPUSCULAR VOLUME 101.8 fL (83.0-99.0); MEAN PLATELET VOLUME 10.7 fL (9.4-12.4); NEUTROPHILS ABSOLUTE AUTO 2.82 K/uL (1.80-7.70); NEUTROPHILS PERCENT AUTO 50.1 % (41.0-71.0); PLATELET COUNT,PLT 55 K/uL (150-400); RED BLOOD CELL COUNT 2.79 M/uL (4.52-5.90); WHITE BLOOD CELL COUNT,WBC 5.63 K/uL (3.9-11.3)
[2024-01-03 17:14] LABS: INR 1.72 (0.86-1.11)
[2024-01-03 17:26] LABS: A/G RATIO 0.6 (0.9-1.6); ALANINE AMINOTRANSFERASE,ALT 23 IU/L (14-63); ALBUMIN 2.1 g/dL (3.4-5.0); ALKALINE PHOSPHATASE 128 U/L (46-116); ASPARTATE AMNIOTRANSFERASE,AST 54 IU/L (15-37); BILIRUBIN TOTAL 4.9 mg/dL (0.2-1.0); BLOOD UREA NITROGEN,BUN 17 mg/dL (7.0-18.0); CALCIUM 8.5 mg/dL (8.5-10.1); CHLORIDE,CL 106 mmol/L (98-107); CREATININE 1.8 mg/dL (0.8-1.3); EST CRCL DRUG DOSING (CG) 39.99 mL/min; ESTIMATED GFR 40 mL/min (>60); ETHANOL BLOOD MEDICAL <3 mg/dL; GLUCOSE RANDOM 105 mg/dL (74-106); LIPASE 45 U/L (16-77); MAGNESIUM 1.5 mg/dL (1.8-2.4); POTASSIUM,K 4.4 mmol/L (3.5-5.1); PROTEIN TOTAL,TP 5.9 g/dL (6.4-8.2); SODIUM,NA 137 mmol/L (136-148)
[2024-01-03 17:42] LABS: APPEARANCE,URINE CLEAR; COLOR,URINE YELLOW; GLUCOSE,URINE NEGATIVE (NEGATIVE); KETONES,URINE TRACE mg/dL (NEGATIVE); LEUKOCYTE ESTERASE,URINE TRACE (NEGATIVE); NITRITE,URINE POSITIVE (NEGATIVE); OCCULT BLOOD,URINE TRACE-INTACT (NEGATIVE); PROTEIN,URINE NEGATIVE (NEGATIVE)
[2024-01-03 17:48] LABS: BILIRUBIN,URINE SMALL (NEGATIVE)
[2024-01-03 17:50] LABS: AMPHETAMINES SCREEN, URINE NEGATIVE (CUTOFF=500); BARBITURATE SCREEN,URINE NEGATIVE (CUTOFF=200); BENZODIAZEPINES SCREEN,URINE PRESUMPTIVE POSITIVE (CUTOFF=150); BUPRENORPHINE SCREEN,URINE NEGATIVE (CUTOFF=10); METHADONE SCREEN, URINE NEGATIVE (CUTOFF=200); METHAMPHETAMINES SCREEN, URINE NEGATIVE (CUTOFF=500); OXYCODONE SCREEN,URINE NEGATIVE (CUT0FF=100); PCP SCREEN,URINE NEGATIVE (CUTOFF=25); THC SCREEN,URINE 20 NG/ML NEGATIVE (CUTOFF=50)
[2024-01-03 18:06] LABS: BACTERIA,URINE FEW (NEGATIVE); EPITHELIAL CELLS,URINE RARE (NONE-FEW); RBC,URINE 0-1 (0-2/HPF); WBC,URINE 0-2 (0-5/HPF)
[2024-01-03] MEDS: Iopamidol 755 MG/ML 500 ML Multipack Bottle IVPUSH STA (18:14)
[2024-01-03] MEDS: traMADol 50 MG Tab PO ONE (18:22)
[2024-01-03] MEDS: Sodium Chloride 0.9% 2.5 ML Syringe FLUSH PRN (20:14)
[2024-01-03] MEDS: Magnesium Oxide 400 MG Tab PO ONE (20:14)
[2024-01-03] MEDS: Sodium Chloride 0.9% 10 ML Syringe FLUSH PRN (20:15)
[2024-01-03] MEDS: Sodium Chloride 0.9% 1,000 ML IV ONE (20:18)
[2024-01-03] MEDS: Morphine 4 MG/ML Syringe IVPUSH ONE (20:44)
[2024-01-03 22:19] VITALS: BP 117/55; PULSE 74
== END 2024-01-03 22:00 | disposition home or self-care (01) ==
LOC: MW.ED 16:25
DX: S22.41XA Multiple fractures of ribs, right side, initial encounter for closed fracture (principal); S09.90XA Unspecified injury of head, initial encounter; N39.0 Urinary tract infection, site not specified; R91.1 Solitary pulmonary nodule; I10 Essential (primary) hypertension; E66.9 Obesity, unspecified; F17.210 Nicotine dependence, cigarettes, uncomplicated; Z79.51 Long term (current) use of inhaled steroids; Z79.899 Other long term (current) drug therapy; Z68.27 Body mass index [BMI] 27.0-27.9, adult; Z75.8 Other problems related to medical facilities and other health care; W06.XXXA Fall from bed, initial encounter
CPT/HCPCS: 36415; 70450; 71260; 74177; 80053; 80305; 80307; 81001; 83690; 83735; 85025; 85610; 87086; 96361; 96374; 99283; A9270; J2270; J3490; J7030; Q9967

== ENCOUNTER 2024-03-07 11:49 | Emergency (ER) | payer MEDICAID, MEDICARE ==
[2024-03-07] MEDS ORDERED: Sodium Chloride 0.9% 2.5 ML Syringe FLUSH PRN (11:55)
[2024-03-07] MEDS ORDERED: Sodium Chloride 0.9% 20 ML SDV IV PRN (11:55)
[2024-03-07] MEDS ORDERED: Sodium Chloride 0.9% 10 ML Syringe FLUSH PRN (11:55)
[2024-03-07 12:24] LABS: BASOPHILS ABSOLUTE AUTO 0.06 K/uL (0.00-0.20); BASOPHILS PERCENT AUTO 0.7 % (0.0-1.0); EOSINOPHILS ABSOLUTE AUTO 0.75 K/uL (0.00-0.45); EOSINOPHILS PERCENT AUTO 8.8 % (0.0-6.0); HEMATOCRIT 28.7 % (42.0-52.0); HEMOGLOBIN 9.8 g/dL (14.0-18.0); IMMATURE GRAN ABSOLUTE AUTO 0.18 K/uL (0.00-0.05); IMMATURE GRAN PERCENT AUTO 2.1 % (0.0-0.4); LYMPHOCYTES ABSOLUTE AUTO 1.81 K/uL (1.00-4.80); LYMPHOCYTES PERCENT AUTO 21.3 % (24.0-44.0); MEAN CORPUSCULAR HEMOGLOBIN 36.6 pg (28.0-32.0); MEAN CORPUSCULAR HGB CONC 34.1 g/dL (32.0-36.0); MEAN CORPUSCULAR VOLUME 107.1 fL (83.0-99.0); MEAN PLATELET VOLUME 10.9 fL (9.4-12.4); MONOCYTES ABSOLUTE AUTO 0.98 K/uL (0.00-0.80); MONOCYTES PERCENT AUTO 11.5 % (0.0-8.0); NEUTROPHILS ABSOLUTE AUTO 4.72 K/uL (1.80-7.70); NEUTROPHILS PERCENT AUTO 55.6 % (41.0-71.0); RED BLOOD CELL COUNT 2.68 M/uL (4.52-5.90)
[2024-03-07 12:27] LABS: PH,VENOUS 7.45 (7.31-7.41)
[2024-03-07] MEDS: cefTRIAXone 2 GM in Sodium Chloride 0.9% 50 ML IV ONE (12:31)
[2024-03-07 12:36] LABS: INR 2.42 (0.86-1.11)
[2024-03-07 12:52] LABS: PLATELET COUNT,PLT 44 K/uL (150-400)
[2024-03-07 13:07] LABS: A/G RATIO 0.5 (0.9-1.6); ALBUMIN 1.8 g/dL (3.4-5.0); BILIRUBIN TOTAL 11.4 mg/dL (0.2-1.0); CALCIUM 8.6 mg/dL (8.5-10.1); CARBON DIOXIDE,CO2 24.2 mmol/L (21.0-32.0); CREATININE 1.6 mg/dL (0.8-1.3); EST CRCL DRUG DOSING (CG) 44.36 mL/min; MAGNESIUM 1.5 mg/dL (1.8-2.4); PROTEIN TOTAL,TP 5.8 g/dL (6.4-8.2)
[2024-03-07 14:06] VITALS: BP 105/51; PULSE 62
[2024-03-07] MEDS: Lactulose Soln 10 GM/15 ML 15 ML UD Cup PO ONE (15:04)
== END 2024-03-07 15:46 ==
LOC: MW.ED 11:49
DX: K70.30 Alcoholic cirrhosis of liver without ascites (principal); F10.10 Alcohol abuse, uncomplicated; K76.7 Hepatorenal syndrome; J93.9 Pneumothorax, unspecified; E80.6 Other disorders of bilirubin metabolism; R79.89 Other specified abnormal findings of blood chemistry; J90 Pleural effusion, not elsewhere classified; R41.82 Altered mental status, unspecified; R17 Unspecified jaundice; I10 Essential (primary) hypertension; E66.9 Obesity, unspecified; Z68.25 Body mass index [BMI] 25.0-25.9, adult
CPT/HCPCS: 36415; 70450; 71250; 74176; 80053; 82140; 82803; 83605; 83690; 83735; 83880; 84484; 85025; 85610; 87040; 87428; 93005; 96365; 99285; A9270; J0696; J3490

== ENCOUNTER 2024-04-03 23:13 | Emergency (ER) | payer MEDICARE, MEDICAID ==
[2024-04-03] MEDS: Sodium Chloride 0.9% 1,000 ML IV SCH (23:43)
[2024-04-03 23:55] LABS: BASOPHILS ABSOLUTE AUTO 0.05 K/uL (0.00-0.20); BASOPHILS PERCENT AUTO 0.7 % (0.0-1.0); EOSINOPHILS ABSOLUTE AUTO 0.33 K/uL (0.00-0.45); EOSINOPHILS PERCENT AUTO 4.6 % (0.0-6.0); HEMATOCRIT 27.1 % (42.0-52.0); HEMOGLOBIN 9.4 g/dL (14.0-18.0); IMMATURE GRAN ABSOLUTE AUTO 0.06 K/uL (0.00-0.05); IMMATURE GRAN PERCENT AUTO 0.8 % (0.0-0.4); LYMPHOCYTES ABSOLUTE AUTO 2.22 K/uL (1.00-4.80); LYMPHOCYTES PERCENT AUTO 31.2 % (24.0-44.0); MEAN CORPUSCULAR HEMOGLOBIN 37.3 pg (28.0-32.0); MEAN CORPUSCULAR HGB CONC 34.7 g/dL (32.0-36.0); MEAN CORPUSCULAR VOLUME 107.5 fL (83.0-99.0); MEAN PLATELET VOLUME 9.9 fL (9.4-12.4); MONOCYTES ABSOLUTE AUTO 1.02 K/uL (0.00-0.80); MONOCYTES PERCENT AUTO 14.3 % (0.0-8.0); NEUTROPHILS ABSOLUTE AUTO 3.44 K/uL (1.80-7.70); NEUTROPHILS PERCENT AUTO 48.4 % (41.0-71.0); PLATELET COUNT,PLT 64 K/uL (150-400); RED BLOOD CELL COUNT 2.52 M/uL (4.52-5.90); WHITE BLOOD CELL COUNT,WBC 7.12 K/uL (3.9-11.3)
[2024-04-04 00:08] LABS: A/G RATIO 0.4 (0.9-1.6); ALBUMIN 1.6 g/dL (3.4-5.0); BILIRUBIN TOTAL 7.5 mg/dL (0.2-1.0); CALCIUM 8.7 mg/dL (8.5-10.1); CARBON DIOXIDE,CO2 26.2 mmol/L (21.0-32.0); CREATININE 2.3 mg/dL (0.8-1.3); EST CRCL DRUG DOSING (CG) 28.91 mL/min; POTASSIUM,K 4.3 mmol/L (3.5-5.1); PROTEIN TOTAL,TP 5.8 g/dL (6.4-8.2)
[2024-04-04 00:29] LABS: APPEARANCE,URINE CLEAR; COLOR,URINE YELLOW; GLUCOSE,URINE NEGATIVE (NEGATIVE); KETONES,URINE TRACE mg/dL (NEGATIVE); LEUKOCYTE ESTERASE,URINE NEGATIVE (NEGATIVE); NITRITE,URINE NEGATIVE (NEGATIVE); OCCULT BLOOD,URINE TRACE-INTACT (NEGATIVE); PH,URINE 5.5 (5.0-8.0); PROTEIN,URINE NEGATIVE (NEGATIVE)
[2024-04-04 00:41] LABS: AMPHETAMINES SCREEN, URINE NEGATIVE (CUTOFF=500); BARBITURATE SCREEN,URINE NEGATIVE (CUTOFF=200); BENZODIAZEPINES SCREEN,URINE PRESUMPTIVE POSITIVE (CUTOFF=150); BUPRENORPHINE SCREEN,URINE NEGATIVE (CUTOFF=10); METHADONE SCREEN, URINE NEGATIVE (CUTOFF=200); METHAMPHETAMINES SCREEN, URINE NEGATIVE (CUTOFF=500); OXYCODONE SCREEN,URINE NEGATIVE (CUT0FF=100); PCP SCREEN,URINE NEGATIVE (CUTOFF=25); THC SCREEN,URINE 20 NG/ML NEGATIVE (CUTOFF=50)
[2024-04-04 00:42] LABS: BILIRUBIN,URINE SMALL (NEGATIVE)
[2024-04-04] MEDS ORDERED: Levofloxacin/Dextrose 5%-Water 500 MG in Premix Bag 1 BAG IV ONE (00:43)
[2024-04-04] MEDS ORDERED: Lactulose Soln 10 GM/15 ML 15 ML UD Cup ONE (00:43)
[2024-04-04 00:50] LABS: BACTERIA,URINE RARE (NEGATIVE); EPITHELIAL CELLS,URINE FEW (NONE-FEW); WBC,URINE 0-2 (0-5/HPF)
[2024-04-04] MEDS: Lactulose Soln 10 GM/15 ML 15 ML UD Cup PO ONE (01:12)
[2024-04-04] MEDS: Lactulose Soln 10 GM/15 ML 15 ML UD Cup ONE (01:28)
[2024-04-04] MEDS: Levofloxacin 500 MG Tab PO ONE (01:50)
[2024-04-04] MEDS: Sodium Chloride 0.9% 1,000 ML IV SCH ×2 (01:56→02:02)
[2024-04-04 02:33] VITALS: BP 107/54; PULSE 72
== END 2024-04-04 03:57 ==
LOC: MW.ED 23:13
DX: A41.9 Sepsis, unspecified organism (principal); R65.20 Severe sepsis without septic shock; N17.9 Acute kidney failure, unspecified; J18.9 Pneumonia, unspecified organism; I62.00 Nontraumatic subdural hemorrhage, unspecified; K76.82 Hepatic encephalopathy; D69.6 Thrombocytopenia, unspecified; E86.0 Dehydration; I10 Essential (primary) hypertension; E66.9 Obesity, unspecified; Z79.899 Other long term (current) drug therapy; Z68.24 Body mass index [BMI] 24.0-24.9, adult
CPT/HCPCS: 36415; 70450; 71045; 80053; 80305; 80307; 81001; 82140; 82550; 83605; 84484; 85025; 87040; 93005; 96360; 96361; 99285; A9270; J7030; 93010

== ENCOUNTER 2024-04-28 17:59 | Inpatient (IN) | payer MEDICARE, MEDICAID ==
[2024-04-28] MEDS ORDERED: Sodium Chloride 0.9% 2.5 ML Syringe FLUSH PRN (18:00)
[2024-04-28] MEDS ORDERED: Sodium Chloride 0.9% 20 ML SDV IV PRN (18:00)
[2024-04-28] MEDS ORDERED: Sodium Chloride 0.9% 10 ML Syringe FLUSH PRN (18:00)
[2024-04-28 19:11] LABS: BASOPHILS ABSOLUTE AUTO 0.06 K/uL (0.00-0.20); BASOPHILS PERCENT AUTO 0.8 % (0.0-1.0); EOSINOPHILS ABSOLUTE AUTO 0.33 K/uL (0.00-0.45); EOSINOPHILS PERCENT AUTO 4.6 % (0.0-6.0); HEMATOCRIT 22.1 % (42.0-52.0); HEMOGLOBIN 7.3 g/dL (14.0-18.0); IMMATURE GRAN ABSOLUTE AUTO 0.18 K/uL (0.00-0.05); IMMATURE GRAN PERCENT AUTO 2.5 % (0.0-0.4); LYMPHOCYTES ABSOLUTE AUTO 1.39 K/uL (1.00-4.80); LYMPHOCYTES PERCENT AUTO 19.4 % (24.0-44.0); MEAN CORPUSCULAR HEMOGLOBIN 37.6 pg (28.0-32.0); MEAN CORPUSCULAR VOLUME 113.9 fL (83.0-99.0); MEAN PLATELET VOLUME 10.4 fL (9.4-12.4); MONOCYTES ABSOLUTE AUTO 0.92 K/uL (0.00-0.80); MONOCYTES PERCENT AUTO 12.9 % (0.0-8.0); NEUTROPHILS ABSOLUTE AUTO 4.27 K/uL (1.80-7.70); NEUTROPHILS PERCENT AUTO 59.8 % (41.0-71.0); PLATELET COUNT,PLT 51 K/uL (150-400); RED BLOOD CELL COUNT 1.94 M/uL (4.52-5.90); WHITE BLOOD CELL COUNT,WBC 7.15 K/uL (3.9-11.3)
[2024-04-28 19:19] LABS: BASE EXCESS VENOUS -2.7 (-2.0-3.0); PH,VENOUS 7.41 (7.32-7.43)
[2024-04-28 19:23] LABS: INR 2.22 (0.86-1.11)
[2024-04-28] MEDS: cefTRIAXone 2 GM in Sodium Chloride 0.9% 50 ML IV ONE (19:26)
[2024-04-28] MEDS: Lactulose Soln 10 GM/15 ML 15 ML UD Cup PO ONE (19:42)
[2024-04-28 19:58] LABS: A/G RATIO 0.5 (0.9-1.6); ALANINE AMINOTRANSFERASE,ALT 43 IU/L (14-63); ALKALINE PHOSPHATASE 159 U/L (46-116); ASPARTATE AMNIOTRANSFERASE,AST 109 IU/L (15-37); BILIRUBIN TOTAL 7.2 mg/dL (0.2-1.0); BLOOD UREA NITROGEN,BUN 40 mg/dL (7.0-18.0); CALCIUM 8.7 mg/dL (8.5-10.1); CARBON DIOXIDE,CO2 22.8 mmol/L (21.0-32.0); CHLORIDE,CL 111 mmol/L (98-107); CREATININE 1.7 mg/dL (0.8-1.3); EST CRCL DRUG DOSING (CG) 36.49 mL/min; GLUCOSE RANDOM 98 mg/dL (74-106); LIPASE 34 U/L (16-77); MAGNESIUM 1.9 mg/dL (1.8-2.4); POTASSIUM,K 4.4 mmol/L (3.5-5.1); PRO B-TYPE NATRIUR PEPT,BNPPRO 516 pg/mL (0-125); PROTEIN TOTAL,TP 5.8 g/dL (6.4-8.2); SODIUM,NA 142 mmol/L (136-148)
[2024-04-28 20:00] LABS: ESTIMATED GFR 43 mL/min (>60)
[2024-04-28 20:02] LABS: ETHANOL BLOOD MEDICAL < 3.0 mg/dL
[2024-04-28] MEDS: Ondansetron 4 MG/2 ML SDV IVPUSH ONE (20:24)
[2024-04-28] MEDS: HYDROmorphone 0.5 MG/0.5 ML Syringe IVPUSH ONE (20:24)
[2024-04-29] MEDS ORDERED: Ondansetron 4 MG/2 ML SDV IVPUSH PRN (00:15)
[2024-04-29] MEDS ORDERED: Haloperidol Lactate 2 MG/ML Oral Soln 15 ML Bottle PO PRN (08:56)
[2024-04-29] MEDS: HYDROmorphone 0.5 MG/0.5 ML Syringe IVPUSH PRN (10:01)
[2024-04-29] MEDS ORDERED: Albuterol 8 GM Inhaler INH PRN (10:04)
[2024-04-29] MEDS: Lactulose Soln 10 GM/15 ML 15 ML UD Cup PO SCH (10:50)
[2024-04-29] MEDS: Spironolactone 25 MG Tab PO SCH (10:50)
[2024-04-29] MEDS: Nicotine 14 MG/24 Hr Patch TRDERM SCH (16:00)
[2024-04-29] MEDS: Temazepam 15 MG Cap PO SCH (22:01)
[2024-04-30] MEDS: Atropine 1% Ophth Soln 5 ML Bottle SL PRN (17:24)
[2024-05-01] MEDS: LORazepam 2 MG/ML SDV IVPUSH PRN (05:07)
[2024-05-02 08:00] VITALS: BP 112/58; PULSE 103
== END 2024-05-02 14:00 | disposition expired | DRG 951 ==
LOC: MW.ED 17:59 → MW.MS 20:33
PROVIDERS: ADMIT Internal Medicine; ATTEND Internal Medicine
DX: Z51.5 Encounter for palliative care (principal); R41.82 Altered mental status, unspecified; I12.0 Hypertensive chronic kidney disease with stage 5 chronic kidney disease or end stage renal disease; N18.6 End stage renal disease; K76.7 Hepatorenal syndrome; K74.60 Unspecified cirrhosis of liver; Z66 Do not resuscitate; E66.9 Obesity, unspecified; K72.10 Chronic hepatic failure without coma; Z68.22 Body mass index [BMI] 22.0-22.9, adult; I10 Essential (primary) hypertension; K76.82 Hepatic encephalopathy; D64.9 Anemia, unspecified; H91.93 Unspecified hearing loss, bilateral; Z79.899 Other long term (current) drug therapy; Z87.442 Personal history of urinary calculi; Z79.52 Long term (current) use of systemic steroids
CPT/HCPCS: 36415; 70450; 71250; 72125; 74176; 80053; 80307; 82140; 82803; 83605; 83690; 83735; 83880; 84484; 85025; 85610; 87040; 93005; 96365; 96375; 99285; A9270; J0696; J2405; J2060